=== PATIENT | female | born 2000 | race Caucasian/White ===

== ENCOUNTER 2020-05-17 11:50 | Emergency (ER) | payer OTHER, SELFPAY ==
[2020-05-17 11:57] VITALS: BP 122/69; PULSE 100; RESP 18; TEMP 36.7; O2SAT 96; BMI 22.3
--- NOTE | 2020-05-17 12:13 | ECG_ITS ---
Test Reason : SOB Blood Pressure : / mmHG Vent. Rate : 084 BPM Atrial Rate : 084 BPM P-R Int : 120 ms QRS Dur : 088 ms QT Int : 396 ms P-R-T Axes : 026 049 050 degrees QTc Int : 467 ms Normal sinus rhythm Normal ECG When compared with ECG of 16-FEB-2020 20:56, No significant change was found Referred By: Saumya Matson Electronically Signed By:Ceferino Ness
--- NOTE | 2020-05-17 12:13 | XR_ITS ---
EXAMINATION: XR CHEST CLINICAL INFORMATION: Chest pain COMPARISON: Chest radiographs 01/15/2020, 10/15/2019 TECHNIQUE: Frontal view of the chest was obtained. FINDINGS: There is no pneumothorax. No pleural reaction, airspace consolidation, or effusion. The heart is normal in size. The costophrenic sulci are clear. The hilar and mediastinal contours and visualized bony structures are unremarkable. No free air beneath the diaphragms. XR/XR chest 1V IMPRESSION: Unremarkable examination.
--- NOTE | 2020-05-17 12:36 | ED_ITS ---
HPI - General Adult General Chief complaint: General Medical Stated complaint: medical exposure Time Seen by Provider: 05/17/20 12:07 Source: patient and old records reviewed Mode of arrival: ambulatory Limitations: no limitations History of Present Illness HPI narrative: 20 y/o female with history of active IVDA, recently diagnosed RLE DVT who presents for evaluation for possible Staph infection. She has been sha ring needles with her boyfriend who was just diagnosed with Staph bacteremia and endocarditis. They were both hospitalized at [facility] in [place], [place] but left AMA. She did not fill her prescription for anticoaulation upon discharge. She denies leg pain. She reports fever of 101 two days ago and mild chest pain on inspiration. She was tested for COVID on admission and was negative. She repo rts nausea all night last night and wants to get evaluated for Staph infection. complaint: medical clearance Onset (ago): day(s) (2) Location: chest Radiation: non-radiation Severity: mild Quality: aching Pain Consistency: intermittent Relieving factors: none Exacerbating factors: other (deep breath ) Associated symptoms: loss of appetite and other (nausea) Related Data Previous Rx's Medication Instructions Recorded rivaroxaban [Xarelto DVT-PE Treat 1 ea PO PER PKG DIR #51 ea 05/17/20 30d Start] Allergies Allergy/AdvReac Type Severity Reaction Status Date / Time No Known Allergies Allergy Verified 05/17/20 12:00 [No Known Allergies*] Review of Systems Review of Systems: Constitutional: No Fever, No Chills ENT/Mouth: No sore throat, No Rhinorrhea, No Swallowing Difficulty Eyes: No Eye Pain, No Swelling, No Redness Cardiovascular: No Chest Pain, No SOB, No Orthopnea, No Edema Respiratory: No Cough, No Sputum, No Wheezing, No dyspnea Gastrointestinal: No Nausea, No Vomiting, No Diarrhea, No abdominal Pain, No Hematochezia, No Melena Genitourinary: No Dysuria, No Urinary Frequency, No Hematuria Musculoskeletal: No joint pain, No Myalgias Skin: No Skin Lesions, No rash Neuro: No Weakness, No Numbness, No Dizziness, No Headache Psych: No Anxiety/Panic, No Depression Heme/Lymph: No Bruising, No Lymphadenopathy Endocrine: No Polyuria, No Polydipsia [facility] Past Medical History Medical History (Updated 05/17/20 @ 14:29 by ABEL Lozano) Asthma DVT (deep venous thrombosis) Social History Social History Advance Directives: No Advance Directives Information Provided: No Physical Exam Vital Signs: Vital Signs: Last Vital Signs Temp 98.1 F 05/17/20 11:57 Pulse 100 05/17/20 11:57 Resp 18 05/17/20 11:57 BP 122/69 05/17/20 11:57 Pulse Ox 96 05/17/20 11:57 Body Mass Index 22.3 Appearance: Alert. Oriented X3. No acute distress. Anxious Eyes: Pupils equal, round and reactive to light. ENT: Pharynx normal. Neck: Normal inspection. Neck supple. CVS: Normal heart rate and rhythm. Pulses normal. Respiratory: No respiratory distress. Breath sounds normal. Abdomen: Soft and nontender. +BS x4 Skin: Skin warm and dry. Normal skin color. Normal skin turgor. Areas of IVDA noted on bilateral dorsal hands, no streaking or erythema. Extremities: Mild RLE edema of lower leg, 2+ pedal pulse, mild calf tenderness. Neuro: Oriented X 3. No motor deficit. No sensory deficit. Course Course Course Narrative: 20 y/o female with history of polysubstance abuse, active IVDA and recent dx RLE DVT presenting for evaluation of possible bacteremia after sharing needles with her significant other who is known to have MSSA bacteremia. Fever 2 days ago. Vitals normal on arrival. Will get labs and cultures as well as CXR and EKG for reports of mild chest discomfort. Reevaluation(s) Reevaluation #1: Records from [facility] were reviewed - she was admitted 05/13-05/15. Started on Xarelto for popliteal vein DVT in RLE. On admission there she was tachycardic to 150s and found to have a lactic acid of 4.0, resolved after IVF. She had a normal ECHO without evidence of vegetations and blood cultures were sterile to date. Reevaluation #2: CXR negative, troponin negative. Cultures drawn. No tachycardia or hypoxia to raise concern for PE. Will restart on Xarelto. Blood cultures drawn. Reassured by negative cultures at OSH. She is stable for discharge. Patient declining detox at this time, states she is planning on calling her facility of choice this week. Medical Decision Making Lab Data Result diagrams: 05/17/20 13:06 05/17/20 13:06 Labs: Lab Results 05/17/20 05/17/20 05/17/20 Range/Units 13:06 13:06 13:06 WBC 9.9 (4.8-10.8) X10*3/uL RBC 4.35 (4.20-5.50) X10*6/uL Hgb 12.9 (12.0-16.0) g/dl Hct 38.7 (37-47) % MCV 89.0 (80-98) fL MCH 29.7 (27.0-33.0) pg MCHC 33.3 (31.0-35.0) g/dl RDW 12.3 (11.0-16.0) % Plt Count 399 (160-400) X10*3/uL MPV 9.4 (9.4-12.3) fL Immature Gran % (Auto) 0.5 H (0.0-0.4) % Neut % (Auto) 50.4 (45-73) % Lymph % (Auto) 33.5 (20-40) % Freeborn % (Auto) 9.0 (2-11) % Eos % (Auto) 6.1 H (0-4) % Baso % (Auto) 0.5 (0-2) % Lymph # (Auto) 3.3 (1.2-4.9) X10*3/uL Free[place] # (Auto) 0.9 (0.1-1.2) X10*3/uL Eos # (Auto) 0.6 H (0.0-0.4) X10*3/uL Baso # (Auto) 0.1 (0.0-0.2) X10*3/uL Abs Immat Gran (auto) 0.05 H (0.00-0.03) X10*3/uL Absolute Neuts (auto) 5.0 (2.0-8.3) X10*3/uL Absolute Nucleated RBC 0.000 (0.0-0.012) X10*3/uL Nucleated RBC % (auto) 0.0 (0.0-0.2) /100WBC PT 12.9 (10.8-13.0) SEC INR 1.1 (0.9-1.1) APTT 33.8 (24.1-38.0) SEC Sodium 136 (135-145) mmol/L Potassium 3.5 (3.3-5.1) mmol/l Chloride 101 (96-108) mmol/L Carbon Dioxide 25 (22-29) mmol/L Anion Gap 14 (12-20) BUN 18 H (9-16) mg/dL Creatinine 0.80 (0.5-1.4) mg/dL Estim Creat Clear Calc 96.1 Estimated GFR > 60 Random Glucose 102 (60-115) mg/dL Lactic Acid (0.5-2.0) mmol/L Calcium 8.7 (8.4-10.2) mg/dL Magnesium 2.0 (1.6-2.6) mg/dL Total Bilirubin 0.3 (0.0-1.0) mg/dL Direct Bilirubin 0.2 (0.0-0.5) mg/dL AST 23 (5-31) U/L ALT 20 (0-31) U/L Alkaline Phosphatase 67 (39-117) U/L Troponin I High Sens (<3.5-17.0) ng/L Total Protein 7.7 (6.5-8.0) g/dL Albumin 4.0 (3.5-5.0) g/dL 05/17/20 05/17/20 Range/Units 13:06 13:06 WBC (4.8-10.8) X10*3/uL RBC (4.20-5.50) X10*6/uL Hgb (12.0-16.0) g/dl Hct (37-47) % MCV (80-98) fL MCH (27.0-33.0) pg MCHC (31.0-35.0) g/dl RDW (11.0-16.0) % Plt Count (160-400) X10*3/uL MPV (9.4-12.3) fL Immature Gran % (Auto) (0.0-0.4) % Neut % (Auto) (45-73) % Lymph % (Auto) (20-40) % Freeborn % (Auto) (2-11) % Eos % (Auto) (0-4) % Baso % (Auto) (0-2) % Lymph # (Auto) (1.2-4.9) X10*3/uL Freeborn # (Auto) (0.1-1.2) X10*3/uL Eos # (Auto) (0.0-0.4) X10*3/uL Baso # (Auto) (0.0-0.2) X10*3/uL Abs Immat Gran (auto) (0.00-0.03) X10*3/uL Absolute Neuts (auto) (2.0-8.3) X10*3/uL Absolute Nucleated RBC (0.0-0.012) X10*3/uL Nucleated RBC % (auto) (0.0-0.2) /100WBC PT (10.8-13.0) SEC INR (0.9-1.1) APTT (24.1-38.0) SEC Sodium (135-145) mmol/L Potassium (3.3-5.1) mmol/l Chloride (96-108) mmol/L Carbon Dioxide (22-29) mmol/L Anion Gap (12-20) BUN (9-16) mg/dL Creatinine (0.5-1.4) mg/dL Estim Creat Clear Calc Estimated GFR Random Glucose (60-115) mg/dL Lactic Acid 1.7 (0.5-2.0) mmol/L Calcium (8.4-10.2) mg/dL Magnesium (1.6-2.6) mg/dL Total Bilirubin (0.0-1.0) mg/dL Direct Bilirubin (0.0-0.5) mg/dL AST (5-31) U/L ALT (0-31) U/L Alkaline Phosphatase (39-117) U/L Troponin I High Sens < 3.5 (<3.5-17.0) ng/L Total Protein (6.5-8.0) g/dL Albumin (3.5-5.0) g/dL ECG Data Attestation: I personally reviewed and interpreted this ECG as follows: Interpretation: normal sinus rhythm, HR 84 bpm, normal MS interval, isolated T wave inversion in V1. Discharge Plan Discharge Clinical Impression: Active intravenous drug use, Acute deep vein thrombosis (DVT) of popliteal vein of right lower extremity Patient Disposition: Home, Self-Care Instructions: Deep Vein Thrombosis (ED), Polysubstance Abuse (ED) Additional Instructions: You lab workup today was unremarkable. Blood cultures were drawn, if they come back positive we will call you. Records from [facility] were reviewed - it is important that you take the prescribed blood thinner to treat your blood clot in your leg. Untreated and this can travel to your lung and be potentially deadly. A new prescription of your blood thinner was sent to your pharmacy. It is important that you seek detox for your drug use [place]. Do not use IV drugs, it can kill you. If you develop fever, chills, shortness of breath or worsening chest pain come back to the ER for further evaluation. Prescriptions: New Xarelto DVT-PE Treat 30d Start 15 mg (42)- 20 mg (9) tablets,dose pack 1 ea PO PER PKG DIR Qty: 51 RF: 0
[2020-05-17 13:16] LABS: Basophils Absolute Auto 0.1 X10*3/uL (0.0-0.2); Basophils Percent Auto 0.5 % (0-2); Eosinophils Absolute Auto 0.6 X10*3/uL (0.0-0.4); Eosinophils Percent Auto 6.1 % (0-4); Hematocrit 38.7 % (37-47); Hemoglobin 12.9 g/dl (12.0-16.0); Imm Gran Abs Auto 0.05 X10*3/uL (0.00-0.03); Imm Gran Pct Auto 0.5 % (0.0-0.4); Lymphocytes Absolute Auto 3.3 X10*3/uL (1.2-4.9); Lymphocytes Percent Auto 33.5 % (20-40); MANUAL DIFF FLAG NO; Mean Corpuscular HGB Conc 33.3 g/dl (31.0-35.0); Mean Corpuscular Hemoglobin 29.7 pg (27.0-33.0); Mean Platelet Volume 9.4 fL (9.4-12.3); Monocytes Absolute Auto 0.9 X10*3/uL (0.1-1.2); Neutrophils Percent Auto 50.4 % (45-73); Platelet Count 399 X10*3/uL (160-400); Red Blood Count 4.35 X10*6/uL (4.20-5.50); Red Cell Distribution Width 12.3 % (11.0-16.0); White Blood Count 9.9 X10*3/uL (4.8-10.8)
[2020-05-17 13:24] LABS: INTERNATIONAL NORM RATIO 1.1 (0.9-1.1); Prothrombin Time 12.9 SEC (10.8-13.0)
[2020-05-17 13:27] LABS: Partial Thromboplastin Time 33.8 SEC (24.1-38.0)
[2020-05-17 13:35] LABS: Lactic Acid 1.7 mmol/L (0.5-2.0)
[2020-05-17] MEDS: Rivaroxaban 15 MG TABLET PO (13:39)
[2020-05-17 13:41] LABS: Alanine Aminotransferase 20 U/L (0-31); Alkaline Phosphatase 67 U/L (39-117); Anion Gap 14 (12-20); Aspartate Amino Transferase 23 U/L (5-31); Bilirubin Direct 0.2 mg/dL (0.0-0.5); Bilirubin Total 0.3 mg/dL (0.0-1.0); Blood Urea Nitrogen 18 mg/dL (9-16); Calcium 8.7 mg/dL (8.4-10.2); Carbon Dioxide 25 mmol/L (22-29); Chloride 101 mmol/L (96-108); Creatinine Clr Calc Pharmacy 96.1; Estimated Glomerular Filt Rate > 60; Glucose Random 102 mg/dL (60-115); Potassium 3.5 mmol/l (3.3-5.1); Sodium 136 mmol/L (135-145); Total Protein 7.7 g/dL (6.5-8.0)
[2020-05-17 13:54] LABS: Troponin-I High Sensitivity < 3.5 ng/L (<3.5-17.0)
[2020-05-17 14:57] LABS: Glucose Urine UA NEG (NEG); Leukocyte Esterase Urine NEG (NEG); Nitrite Urine NEG (NEG); PH 5.5 (5.0-8.0); Specific Gravity - Urine >= 1.030 (1.005-1.025); Urine Blood TRACE (NEG); Urine Ketones NEG (NEG); Urine Protein NEG (NEG-TRACE)
[2020-05-17 14:59] LABS: Appearance Urine CLOUDY; Color Urine YELLOW
[2020-05-17 15:01] LABS: UPreg QC Valid YES; Urine Pregnancy NEGATIVE (NEGATIVE)
[2020-05-17 15:05] LABS: Bacteria Urine 2+ /LPF; Mucus Urine 1+ /LPF; Squamous Epithelial Cell Urine 4+ /LPF; UACC CULT YES
[2020-05-17 15:25] LABS: Amphetamine Screen Urine Not Detected (Not Detect); Barbiturates, Urine Not Detected (Not Detect); Benzodiazepines Screen Urine POSITIVE (Not Detect); Cannabinoid Screen Urine POSITIVE (Not Detect); Cocaine Screen Urine POSITIVE (Not Detect); Opiate Screen Urine POSITIVE (Not Detect); Phencyclidine Screen Urine Not Detected (Not Detect)
== END 2020-05-17 15:04 | disposition home or self-care (01) ==
PROVIDERS: Physician Assistant; Emergency Provider Emergency Medicine Emergency Medical Services
DX: I82.431 Acute embolism and thrombosis of right popliteal vein (principal); F11.10 Opioid abuse, uncomplicated; R11.0 Nausea; Z79.899 Other long term (current) drug therapy; Z20.828 Contact with and (suspected) exposure to other viral communicable diseases
CPT/HCPCS: 36415; 71045; 80048; 80076; 80307; 81001; 81025; 83605; 83735; 84484; 85025; 85610; 85730; 87040; 87077; 87086; 87147; 87186; 93005; 99283

== ENCOUNTER 2020-05-18 06:21 | Emergency (ER) | payer OTHER, SELFPAY ==
[2020-05-18 06:33] VITALS: PULSE 84; RESP 14; TEMP 36.7; O2SAT 96; BMI 20.1
--- NOTE | 2020-05-18 06:45 | PC.NURSE ---
PT STATES SHE USED [facility] 2 DAYS AGO
--- NOTE | 2020-05-18 06:59 | PC.NURSE ---
security called to lock pt belongings in . pt has admitted to using [facility] and is homeless with alot of belongings.
--- NOTE | 2020-05-18 07:36 | ED_ITS ---
HPI - General Adult General Chief complaint: General Medical Stated complaint: Leg swelling/sob Time Seen by Provider: 05/18/20 07:17 Source: patient Mode of arrival: ambulatory Limitations: no limitations History of Present Illness HPI narrative: 20-year-old female with a history of injection drug use, homelessness, seen in the emergency department yesterday for evaluation of possible bacteremia and for re-evaluation and treatment right lower extremity DVT. I did review yesterday his emergency department record. The patient was hospitalized from 05/13/2020-05/15/2020 at [facility] and left [place]. She w as diagnosed with a right popliteal DVT and was started on Xarelto. Since leaving [facility] AMA she has not been taking her medications. Her laboratory evaluation yesterday was normal, she did have blood cultures which are pending. She was started on Xarelto and given her 1st dose in the emergency department and discharged. The patient left the emergency department around 7:00 p.m. but stated in the emergency department waiting area overnight. This morning she is complaining of increased swelling in her right lower extremity and she signed back in. She states that her right calf is more swollen than it was yesterday, she has [id number] cramping pain which is constant in her right lower extremity. She denied chest pain or shortness of breath to me. She denied fever or chills. Related Data Previous Rx's Medication Instructions Recorded rivaroxaban [Xarelto DVT-PE Treat 1 ea PO PER PKG DIR #51 ea 05/17/20 30d Start] rivaroxaban [Xarelto DVT-PE Treat 1 ea PO BID #51 ea 05/18/20 30d Start] Allergies Allergy/AdvReac Type Severity Reaction Status Date / Time No Known Allergies Allergy Verified 05/17/20 12:00 [No Known Allergies*] Review of Systems Review of Systems: Yes all other systems are reviewed and are negative Constitutional: Constitutional: Reports as per HPI Eyes: Eyes: Reports as per HPI ENT: Reports as per HPI Cardiovascular: Cardiovascular: Reports as per HPI Respiratory: Respiratory: Reports as per HPI Gastrointestinal: Gastrointestinal: Reports as per HPI Genitourinary: Genitourinary: Reports as per HPI Musculoskeletal: Musculoskeletal: Reports as per HPI Integumentary/Breasts: Skin/Breast: Reports as per HPI Neurologic: Reports as per HPI and Reports Abnormal speech present Psychiatric: Psychiatric: Reports as per HPI Allergic/Immunologic: Allergic/Immunologic: Reports as per HPI [facility] Past Medical History Attestation statement: The following information was validated with the patient. [facility] Narrative: The patient is homeless, she states that she has from the [facility], she does smoke cigarettes, denies alcohol use, she does use injection heroin Medical History (Updated 05/18/20 @ 14:28 by Mario Rubio MD) Asthma DVT (deep venous thrombosis) Social History Social History Alcohol intake: current Smoking Status: Unknown if ever smoked Use of substances other than those prescribed or required for medical reasons: Yes Substance Use Type: Heroin Advance Directives: No Advance Directives Information Provided: No Physical Exam Vital Signs: Vital Signs: Last Vital Signs Temp 98.1 F 05/18/20 06:33 Pulse 84 05/18/20 06:33 Resp 14 05/18/20 06:33 BP 115/73 05/18/20 11:15 Pulse Ox 96 05/18/20 06:33 Body Mass Index 20.1 Const: General: cooperative Nutritional Appearance: average body habitus Orientation/consciousness: oriented to person and oriented to place Limitations: no limitations HENMT: Head: Yes normal to inspection, Yes normocephalic and Yes atraumatic Ears: external ears normal General nose exam: Normal external nose present Face and sinus: Yes normal facial exam Mouth: Normal oral and palatal mucosa present Throat: Yes posterior oropharynx normal Eyes: General: appearance normal, both eyes and all related structures Alignment and Position: alignment normal Periorbital: periorbital findings normal Eyelids: Yes eyelids normal Conjunctivae: conjunctivae normal Sclerae: sclerae normal Pupils: Equal, round and reactive pupils present Direct Ophthalmoscopy: normal light reflex Neck: Neck: Yes normal visual inspection and Yes supple Thyroid: Thyroid normal Chest: Chest palpation & inspection: normal inspection of the chest and normal palpation of entire chest wall Resp: Effort & Inspection: normal respiratory effort and able to speak in complete sentences Auscultation: clear to auscultation bilaterally, no crackles, no rales and no rhonchi Cardio: Rate: regular rate Rhythm: regular rhythm Heart sounds: S1 normal heart sound present, S2 normal heart sound present and no murmurs GI: Inspection: Yes normal to inspection Palpation (GI): Soft to palpation, nontender and no guarding Auscultation: normal bowel sounds : General: Yes no CVA tenderness Back/Spine/Pelvis: Back: no CVA tenderness Cervical Spine: normal cervical lordosis Thoracic/Lumbar Spine: thoracic and lumbar spine normal to inspection Skin: General skin exam: no rashes or lesions noted Lesions: no lesions Rashes: no rashes Trauma: no lacerations or abrasions Neuro: General: oriented to person and oriented to place Cranial nerves: Yes CN's II-XII intact bilaterally and Yes Equal, round and reactive pupils present Cognition (Neuro): normal cognition Speech: Abnormal speech present Motor exam (neuro): 5/5 motor strength present throughout Extrem: Right lower extremity: lower leg (The patient's right calf is slightly larger than the left, thighs symmetric) Psych: Appearance: grossly normal and well kempt Mental Status: mental status grossly normal Speech and movement: Normal speech and movement present Affect: normal affect Attitude: cooperative Thought process: Normal thought process present Thought content: Normal thought content present Insight: Good insight present (Psych) Judgement: Good judgement present (Psych) Course Course Course Narrative: 20-year-old female with history of injection drug use, homelessness with acute right lower extremity popliteal DVT diagnosed 05/13/2020 who has been noncompliant with her Xarelto. The patient was seen yesterday and had a negative laboratory workup with pending blood cultures, she was given a dose of Xarelto yesterday and given a prescription however she spent the night in our waiting area and signed and again this morning. At this time I do not think that the patient needs to have repeat laboratory evaluation but she does need to take Xarelto. She was given a dose of Xarelto 15 mg orally. The patient will be kept in the emergency department until Case Management can evaluate her to try to help her get her medications and to help her get to a skilled nursing so that she can care for herself. 1427: The patient was evaluated by case management and the patient will be sent to a skilled nursing in [place]. I will give the patient her 2nd dose of Xarelto and give her a written prescription to get the medication filled while she is at the [facility]. Patient was given printed instructions on DVT and is reviewed with her prior to her discharge. 1440: I did review the patient's blood cultures from yesterday's visit, patient has 2 sets blood cultures with 1 bottle out of the 4 growing Gram-positive cocci. At this time my impression is that this is probably a contaminant we will need to follow his blood cultures of in the next 24 hours. Discharge Plan Discharge Clinical Impression: Right leg DVT Qualifiers: Affected thrombotic vein of extremity: popliteal Chronicity: acute Qualified Code(s): I82.431 - Acute embolism and thrombosis of right popliteal vein Patient Disposition: Home, Self-Care Instructions: Deep Vein Thrombosis (ED) Additional Instructions: You have a blood clot in your right leg (deep venous thrombosis-DVT) Take Xarelto 15 mg twice a day for 21 days After 21 days the dose changes to Xarelto 20 mg once a day. Get this prescription filled tomorrow and start taking the prescription tomorrow morning. You need to be on Xarelto for 3-6 months. You will need to get a doctor to prescribe your next months dose of Xarelto for you. If you stops this medication the blood clot in your leg will get bigger and then the clot can break off and travel to your lungs. This is called a pulmonary embolus and he can cause serious damage to her lungs and can cause to . Follow-up with a provider in 1 week Please return to the emergency department if her symptoms get worse or if you develop any new symptoms that are concerning to you. Prescriptions: New Xarelto DVT-PE Treat 30d Start 15 mg (42)- 20 mg (9) tablets,dose pack 1 ea PO BID Qty: 51 RF: 0 No [facility] Xarelto DVT-PE Treat 30d Start 15 mg (42)- 20 mg (9) tablets,dose pack 1 ea PO PER PKG DIR Qty: 51 RF: 0
[2020-05-18] MEDS: Rivaroxaban 15 MG TABLET PO ×2 (07:50→15:18)
--- NOTE | 2020-05-18 09:47 | MHC.CM.ED ---
pt has requested to go to [facility] she has been accepted there and is leaving the [facility] e.d[facility] via [facility] at 11 am. the rn and md and pt are aware of this dc plan. cm to cont. to follow.
--- NOTE | 2020-05-18 10:09 | MHC.RECOVSUP ---
Recovery Support note: Patient is a 20 year old Kiswahili speaking female who presented to [facility] with her boyfriend after leaving [facility] from [facility]. Patient was admitted for a blood clot and report she has not been taking the medications they prescribed. Patient is currently homeless and reports she is interested in going to detox or a care home however she is only willing to go to detox if they will allow her to keep her phone. Patient is agreeable to a referral being placed at [facility] in [place]. Patient information has been faxed to [phone]. [facility] is unable to confirm whether a bed will be available but they are willing to review the referral and will reach out to patient directly if a bed becomes available. This designer writer will follow up with facility prior to patient discharge.
[2020-05-18 11:15] VITALS: BP 115/73
--- NOTE | 2020-05-18 13:08 | MHC.RECOVSUP ---
[facility] reports that they will reach out to patient directly within 24 hours to do an intake and to discuss possible admission time. Patient aware and awaiting call. Patient provided with [facility] information to call directly if she does not hear from them by tomorrow. If patient discharges to a skilled nursing, [facility] will be able to pick patient up and transport her to their facility.
--- NOTE | 2020-05-18 14:22 | MHC.CM.ED ---
pt [facility] [place], [place]. the facility was called and an intake was done c patient, they are holding a bed for her for today and are expecting her to arrive at 4 pm, just in time for their dinner. a cab voucher was used for pt's transportation to residential. additionally, a ref. has been made to [facility]; they do not have a bed right now but will call patient as soon as they do and pick her up at the residential. lastly, pt was informed that she has [facility] which will cover her rx for xarelto; she was also instructed that if she cannot pay the $6 copay then the pharmacist should still dispense the meds despite this. patient was in full understanding. the patient was also given a voucher for a 30 day free suppy of xarelto at the pharmacy. this dc plan has been shared c [facility], and in the e.d. cm to cont. to follow.
[2020-05-18 15:11] VITALS: BP 114/78; PULSE 97; RESP 20; TEMP 36.8; O2SAT 94
== END 2020-05-18 15:29 | disposition home or self-care (01) ==
PROVIDERS: Emergency Provider Emergency Medicine Emergency Medical Services
DX: I82.431 Acute embolism and thrombosis of right popliteal vein (principal); Z91.14 Patient's other noncompliance with medication regimen; Z59.0 Homelessness
CPT/HCPCS: 99284

== ENCOUNTER 2020-05-23 19:30 | Emergency (ER) | payer OTHER, SELFPAY ==
--- NOTE | 2020-05-23 20:02 | ED_ITS ---
HPI - Recheck/Abnormal Lab/Rx General Chief Complaint: Recheck/Abnormal Lab/Rx Stated Complaint: ABNORMAL LABS Time Seen by Provider: 05/23/20 19:45 Source: patient Mode of arrival: ambulatory Limitations: no limitations History of Present Illness HPI narrative: 20-year-old female with past medical history of IV drug use, DVT, presents with abnormal blood cultures. Cultures were taken on 05/17/2020 and both have returned with Gram-positive cocci. Patient states that she feels tired, that her leg is less swollen and is able to walk, has been taking her Xarelto as directed. She does not report any fevers or chills, chest pain or pressure, palpitations, abdominal pain, abdominal distention, dysuria, hematuri a, or loss of balance. MD complaint: abnormal lab Initial visit (ago): week(s) (05/17/2020) Initial visit for: other Returns today for: called because of abnormal lab/test Description of abnormal result: Positive blood culture Symptoms since prior visit: improved Context: called for abnormal lab result Associated symptoms: malaise Related Data Previous Rx's Medication Instructions Recorded rivaroxaban [Xarelto DVT-PE Treat 1 ea PO PER PKG DIR #51 ea 05/17/20 30d Start] rivaroxaban [Xarelto DVT-PE Treat 1 ea PO BID #51 ea 05/18/20 30d Start] amoxicillin-pot clavulanate 1 tab PO Q12H 10 Days #20 tab 05/23/20 [Augmentin] doxycycline monohydrate 100 mg PO BID 10 Days #20 cap 05/23/20 Allergies Allergy/AdvReac Type Severity Reaction Status Date / Time No Known Allergies Allergy Verified 05/17/20 12:00 [No Known Allergies*] Review of Systems Review of Systems: Constitutional: No Fever, No Chills ENT/Mouth: No Ear Pain, No Hoarseness, No sore throat Eyes: No Eye Pain, No Swelling, No Redness, No Foreign Body Cardiovascular: No Chest Pain, No SOB Respiratory: No Cough, No Dyspnea Gastrointestinal: No Nausea, No Vomiting, No Diarrhea, No abdominal Pain Genitourinary: No Dysuria, No Hematuria Musculoskeletal: No joint pain, No Myalgias, No Joint Swelling Skin: No Skin lacerations, No rash Neuro: No Weakness, No Numbness, No Paresthesias, No Loss of Consciousness, No Dizziness, No Headache Psych: No Anxiety/Panic, No Depression Heme/Lymph: no easy bruising, no Lymphadenopathy Endocrine: No Polyuria, No Polydipsia Yes all other systems are reviewed and are negative [facility] Past Medical History Attestation statement: The following information was validated with the patient. Medical History Asthma DVT (deep venous thrombosis) Social History Social History Alcohol intake: current Alcohol intake frequency: a few times a week Smoking Status: Current every day smoker Smoked in Last 30 Days: Yes Use of substances other than those prescribed or required for medical reasons: Yes Substance Use Type: Crack/Cocaine, Marijuana and Other Substance Use Type Other:: BENZO Substance Use Frequency: Chronic Longstanding Last Used Substance: Just Prior to Admission Advance Directives: No Advance Directives Information Provided: Yes Physical Exam Vital Signs: Vital Signs: Last Vital Signs Temp 98.8 F 05/23/20 21:57 Pulse 100 05/23/20 23:26 Resp 20 05/23/20 21:57 BP 105/51 L 05/23/20 21:57 Pulse Ox 94 05/23/20 21:57 Body Mass Index 20.1 Appearance: Alert. Oriented X3. No acute distress. Eyes: Pupils equal, round and reactive to light. ENT: Pharynx normal. Neck: Normal inspection. Neck supple. CVS: Normal heart rate and rhythm. Pulses normal. Respiratory: No respiratory distress. Breath sounds normal. Abdomen: Soft and nontender. Skin: Skin warm and dry. Normal skin color. Normal skin turgor. Extremities: No lower extremity edema. Neuro: No motor deficit. No sensory deficit. Course Course Course Narrative: 20-year-old female with past medical history of IV drug use, DVT, presents with positive blood cultures. She was called by prior june P and asked to return for evaluation. Plan of care is for CBC, Chem 7, lactic and cultures. Patient does not want to stay in the hospital, we will treat with p.o. doxycycline and Augmentin at this time. Evaluation of her right lower extremity, no longer swollen, brisk capillary refill, pedal pulses bilaterally intact and equal. Patient was advised to continue with her Xarelto. Reevaluation(s) Reevaluation #1: Labs not drawn, RN updated. Time: 21:12 Reevaluation #2: Labs are unremarkable, when patient was updated on this during discharge instructions, she stated that she has upper respiratory symptoms, cough and wheeze. She did not mention these symptoms earlier during H&P. Plan of care is for x-ray at this time. X-rays are negative for acute findings. Plan of care is to discharge home. Time: 22:47 MDM - Recheck/Abnormal Lab/Rx MDM Narrative Medical decision making narrative: Bacteremia, abnormal lab values, URI, viral syndrome Medical Records Attestation: I reviewed the patient's medical records. Lab Data Attestation: I reviewed the patient's lab results. Result diagrams: 05/23/20 21:33 05/23/20 21:32 Labs: Lab Results 05/23/20 05/23/20 05/23/20 Range/Units 21:32 21:32 21:33 WBC 9.3 (4.8-10.8) X10*3/uL RBC 3.82 L (4.20-5.50) X10*6/uL Hgb 11.4 L (12.0-16.0) g/dl Hct 36.1 L (37-47) % MCV 94.5 D (80-98) fL MCH 29.8 (27.0-33.0) pg MCHC 31.6 (31.0-35.0) g/dl RDW 12.8 (11.0-16.0) % Plt Count 410 H (160-400) X10*3/uL MPV 9.3 L (9.4-12.3) fL Immature Gran % (Auto) 0.3 (0.0-0.4) % Neut % (Auto) 44.3 L (45-73) % Lymph % (Auto) 40.4 H (20-40) % [place] % (Auto) 6.7 (2-11) % Eos % (Auto) 7.8 H (0-4) % Baso % (Auto) 0.5 (0-2) % Lymph # (Auto) 3.8 (1.2-4.9) X10*3/uL [place] # (Auto) 0.6 (0.1-1.2) X10*3/uL Eos # (Auto) 0.7 H (0.0-0.4) X10*3/uL Baso # (Auto) 0.1 (0.0-0.2) X10*3/uL Abs Immat Gran (auto) 0.03 (0.00-0.03) X10*3/uL Absolute Neuts (auto) 4.1 (2.0-8.3) X10*3/uL Absolute Nucleated RBC 0.000 (0.0-0.012) X10*3/uL Nucleated RBC % (auto) 0.0 (0.0-0.2) /100WBC Sodium 140 (135-145) mmol/L Potassium 3.7 (3.3-5.1) mmol/l Chloride 105 (96-108) mmol/L Carbon Dioxide 26 (22-29) mmol/L Anion Gap 13 (12-20) BUN 15 (9-16) mg/dL Creatinine 0.72 (0.5-1.4) mg/dL Estim Creat Clear Calc 110.6 Estimated GFR > 60 Random Glucose 99 (60-115) mg/dL Lactic Acid 1.6 (0.5-2.0) mmol/L Calcium 8.0 L D (8.4-10.2) mg/dL Imaging Data Chest x-ray: Attestation: I personally reviewed and interpreted this imaging study as follows: Radiologist's impression: EXAMINATION: XR CHEST CLINICAL INFORMATION: Cough and wheezing COMPARISON: 05/17/2020 TECHNIQUE: 2 views of the chest were obtained. FINDINGS: Once again, no significant abnormality is noted involving the heart, lungs, mediastinum, bony thorax or soft tissues. XR/XR chest 2V IMPRESSION: Normal chest radiograph Discharge Plan Discharge Clinical Impression: Abnormal laboratory test result Upper respiratory infection Qualifiers: URI type: unspecified viral URI Qualified Code(s): J06.9 - Acute upper respiratory infection, unspecified Patient Disposition: Home, Self-Care Instructions: Upper Respiratory Infection (ED), Viral Syndrome (ED) Additional Instructions: You were evaluated for abnormal lab values. We repeated your blood cultures. Please continue to take your Xarelto for your blood clot. Your chest x-ray was negative for acute findings. We prescribed doxycycline and Augmentin based on your positive blood culture, high risk lifestyle, and upper respiratory symptoms. If symptoms get worse please return to the emergency department immediately. Thank you for choosing this emergency department for evaluation. Please follow-up with primary care physician as needed. Return to the emergency department for any new, concerning, or worsening symptoms. Prescriptions: New doxycycline monohydrate 100 mg capsule 100 mg PO BID 10 Days Qty: 20 RF: 0 amoxicillin-pot clavulanate [Augmentin] 875-125 mg tablet 1 tab PO Q12H 10 Days Qty: 20 RF: 0 No Action Xarelto DVT-PE Treat 30d Start 15 mg (42)- 20 mg (9) tablets,dose pack 1 ea PO PER PKG DIR Qty: 51 RF: 0 Xarelto DVT-PE Treat 30d Start 15 mg (42)- 20 mg (9) tablets,dose pack 1 ea PO BID Qty: 51 RF: 0 Interventions: ED Discharge Assessment Last Done: 05/24/20 00:22 Discharge Date/Time: 05/24/20 00:23
[2020-05-23 21:40] LABS: MANUAL DIFF FLAG NO
[2020-05-23 21:57] VITALS: BP 105/51; PULSE 90; RESP 20; TEMP 37.1; O2SAT 94; BMI 20.1
[2020-05-23 22:02] LABS: Basophils Absolute Auto 0.1 X10*3/uL (0.0-0.2); Basophils Percent Auto 0.5 % (0-2); Eosinophils Absolute Auto 0.7 X10*3/uL (0.0-0.4); Eosinophils Percent Auto 7.8 % (0-4); Hematocrit 36.1 % (37-47); Hemoglobin 11.4 g/dl (12.0-16.0); Imm Gran Abs Auto 0.03 X10*3/uL (0.00-0.03); Imm Gran Pct Auto 0.3 % (0.0-0.4); Lymphocytes Absolute Auto 3.8 X10*3/uL (1.2-4.9); Lymphocytes Percent Auto 40.4 % (20-40); Mean Corpuscular HGB Conc 31.6 g/dl (31.0-35.0); Mean Corpuscular Hemoglobin 29.8 pg (27.0-33.0); Mean Corpuscular Volume 94.5 fL (80-98); Mean Platelet Volume 9.3 fL (9.4-12.3); Monocytes Absolute Auto 0.6 X10*3/uL (0.1-1.2); Monocytes Percent Auto 6.7 % (2-11); Neutrophils Absolute Auto 4.1 X10*3/uL (2.0-8.3); Neutrophils Percent Auto 44.3 % (45-73); Platelet Count 410 X10*3/uL (160-400); Red Blood Count 3.82 X10*6/uL (4.20-5.50); Red Cell Distribution Width 12.8 % (11.0-16.0); White Blood Count 9.3 X10*3/uL (4.8-10.8)
[2020-05-23 22:02] LABS: Lactic Acid 1.6 mmol/L (0.5-2.0)
[2020-05-23 22:05] LABS: Anion Gap 13 (12-20); Blood Urea Nitrogen 15 mg/dL (9-16); Carbon Dioxide 26 mmol/L (22-29); Chloride 105 mmol/L (96-108); Creatinine Clr Calc Pharmacy 110.6; Estimated Glomerular Filt Rate > 60; Glucose Random 99 mg/dL (60-115); Potassium 3.7 mmol/l (3.3-5.1); Sodium 140 mmol/L (135-145)
[2020-05-23] MEDS: Amoxicillin/Potassium Clav 875 MG TABLET PO (22:05)
--- NOTE | 2020-05-23 22:37 | XR_ITS ---
EXAMINATION: XR CHEST CLINICAL INFORMATION: Cough and wheezing COMPARISON: 05/17/2020 TECHNIQUE: 2 views of the chest were obtained. FINDINGS: Once again, no significant abnormality is noted involving the heart, lungs, mediastinum, bony thorax or soft tissues. XR/XR chest 2V IMPRESSION: Normal chest radiograph
--- NOTE | 2020-05-23 22:58 | PC.NURSE ---
PATIENT AMBULATES WITH STEADY GAIT OUT OF BED TO BATHROOM AND BACK WITHOUT ISSUE. CURTAIN REMAINS OPEN. PT NON-COMBATIVE, CALM, AND COOPERATIVE AT THIS TIME. WILL CONTINUE TO MONITOR.
[2020-05-23] MEDS: Albuterol Sulfate 90 MCG 8 GM INHALER 2 PUFF INHALE (23:25)
[2020-05-23 23:26] VITALS: PULSE 100; O2SAT 95
== END 2020-05-24 00:23 | disposition home or self-care (01) ==
PROVIDERS: Nurse Practitioner Family; Emergency Provider Internal Medicine
DX: J06.9 Acute upper respiratory infection, unspecified (principal); R79.9 Abnormal finding of blood chemistry, unspecified; Z86.718 Personal history of other venous thrombosis and embolism; Z79.01 Long term (current) use of anticoagulants; F17.200 Nicotine dependence, unspecified, uncomplicated
CPT/HCPCS: 36415; 71046; 80048; 83605; 85025; 87040; 94640; 99284

== ENCOUNTER 2020-05-24 12:12 | Emergency (ER) | payer OTHER, SELFPAY ==
[2020-05-24 13:31] VITALS: BP 95/63; PULSE 95; RESP 16; TEMP 36.3; O2SAT 97; BMI 20.1
--- NOTE | 2020-05-24 14:09 | ED.GENADULT ---
HPI - General Adult General Chief complaint: General Medical Stated complaint: abnormal labs Time Seen by Provider: 05/24/20 14:09 History of Present Illness HPI narrative: Patient complains of wheezing for several days and shortness of breath typical of many prior asthma episodes and was called back because of a [place] of blood culture that was done several days ago The patient has no fever no chills no complaint of any infection no chest pain no shortness of breath no cough no runny nose no nausea no vomiting she is eating and drinking normally She was recently here and found have a blood clot and is taking Xarelto, she is an IV drug user who says that she stopped using several weeks ago after a stint in rehab Blood cultures were done on 05/13 as patient complained she had had a fever several days previous, and that her boyfriend who is also an IV drug addict with whom she shares needles had endocarditis and was being treated MD complaint: Positive blood culture, wheezing Related Data Previous Rx's Medication Instructions Recorded rivaroxaban [Xarelto DVT-PE Treat 1 ea PO PER PKG DIR #51 ea 05/17/20 30d Start] rivaroxaban [Xarelto DVT-PE Treat 1 ea PO BID #51 ea 05/18/20 30d Start] amoxicillin-pot clavulanate 1 tab PO Q12H 10 Days #20 tab 05/23/20 [Augmentin] doxycycline monohydrate 100 mg PO BID 10 Days #20 cap 05/23/20 levofloxacin 500 mg PO Q24H #14 tab 05/24/20 prednisone 60 mg PO DAILY 5 Days #15 tab 05/24/20 Allergies Allergy/AdvReac Type Severity Reaction Status Date / Time No Known Allergies Allergy Verified 05/17/20 12:00 [No Known Allergies*] Review of Systems Review of Systems: Positive for wheezing Negative no fever no chills no weakness no dizziness no confusion no chest pain no cough no shortness of breath no palpitations no nausea no vomiting no rash no numbness no weakness, no urinary symptoms Yes all other systems are reviewed and are negative [facility] Past Medical History Attestation statement: The following information was validated with the patient. [facility] Narrative: Positive for IV drug abuse, medical history is positive for recent diagnosis of DVT taking Xarelto and long history of asthma Medical History Asthma DVT (deep venous thrombosis) Social History Social History Alcohol intake: current Alcohol intake frequency: a few times a week Smoking Status: Current every day smoker Substance Use Type: Crack/Cocaine, Marijuana and Other Advance Directives: No Advance Directives Information Provided: No Physical Exam Vital Signs: Vital Signs: Last Vital Signs Temp 98.0 F 05/24/20 17:17 Pulse 76 05/24/20 17:56 Resp 16 05/24/20 17:17 BP 104/69 05/24/20 17:17 Pulse Ox 95 05/24/20 17:17 Body Mass Index 20.1 General appearance is comfortable relaxed tearful corroborative A&O x3 speaking full sentences ambulates easily The head is normocephalic atraumatic, no rashes, pharynx is clear well-hydrated Neck is supple The chest had audible wheezes and prolonged expiration bilaterally, but full air entry, no respiratory distress The heart was rate and rhythm regular with no murmurs auscultated The abdomen soft nontender the extremities no edema no calf tenderness Skin no rashes Neuro no focal deficits Course Course Course Narrative: Patient with a known blood clot who came in complaining of wheezing and shortness of breath which she described as same as many prior asthma exacerbations was treated with albuterol with very good relief of symptoms and decrease in wheezing Blood culture was positive for Pseudomonas fluorescein and Enterococcus faecalis with susceptibility to Levaquin for the Pseudomonas fluorescein and susceptibility to ampicillin for the E faecalis This was discussed with infectious disease doctor marcello who agreed that this patient with no fever or chills and no signs of infection at this time could be treated as an outpatient She had already been started on Augmentin and doxycycline, Augmentin should cover the E faecalis and we started Levaquin by mouth here and patient was discharged Discharge Plan Discharge Clinical Impression: Positive blood culture, Asthma Patient Disposition: Home, Self-Care Additional Instructions: We are treating for asthma with albuterol inhaler and prednisone You had positive blood cultures which means there is a bacteria in her blood We spoke to the Infectious Disease specialist who recommended adding Levaquin to your antibiotics for 14 days so we are adding that Return to the ER any time for fever chills, difficulty breathing, any worse condition, any concerns Prescriptions: New levofloxacin 500 mg tablet 500 mg PO Q24H Qty: 14 RF: 0 prednisone 20 mg tablet 60 mg PO DAILY 5 Days Qty: 15 RF: 0 No Action Xarelto DVT-PE Treat 30d Start 15 mg (42)- 20 mg (9) tablets,dose pack 1 ea PO PER PKG DIR Qty: 51 RF: 0 Xarelto DVT-PE Treat 30d Start 15 mg (42)- 20 mg (9) tablets,dose pack 1 ea PO BID Qty: 51 RF: 0 doxycycline monohydrate 100 mg capsule 100 mg PO BID 10 Days Qty: 20 RF: 0 amoxicillin-pot clavulanate [Augmentin] 875-125 mg tablet 1 tab PO Q12H 10 Days Qty: 20 RF: 0 Interventions: ED Discharge Assessment Last Done: 05/24/20 18:42 Discharge Date/Time: 05/24/20 18:45
--- NOTE | 2020-05-24 15:43 | PC.NURSE ---
AMBULATORY WITH STEADY GAIT TO RM 19 BY [employer]IDER ASSEMBLER, CHERYLE, DOLORES CHANG, ABEL OSBORN IN TO ASSESS, CALL TO DR MORRIS, INFECTIOUS DISEASE MD, AWAITING RETURN CALL
[2020-05-24 16:00] VITALS: BP 114/65; PULSE 97; RESP 16; TEMP 36.8; O2SAT 90
--- NOTE | 2020-05-24 16:43 | PC.NURSE ---
O2 SAT 88-93% RA, O2 AT 2L APPLIED O2 SAT 93-94%, 02 3L SAT 95-96%, HOB ELEVATED, PA IRENA UPDATED,
--- NOTE | 2020-05-24 17:06 | PC.NURSE ---
PT HAD BEEN OOB TO BR FOR APPROX 20 MINS PRIOR TO RETURNING TO ROOM 19, AFFECT SUBDUED, PT YAWNING, 02 REMOVED SAT 97% RA
[2020-05-24 17:17] VITALS: BP 104/69; PULSE 76; RESP 16; TEMP 36.7; O2SAT 95
[2020-05-24] MEDS: Acetaminophen 325 MG TABLET 650 MG PO (17:31)
[2020-05-24] MEDS: predniSONE 20 MG TABLET 60 MG PO (17:32)
[2020-05-24] MEDS: levoFLOXacin 500 MG TABLET PO (17:32)
[2020-05-24] MEDS: Albuterol Sulfate 90 MCG 8 GM INHALER 4 PUFF INHALE (17:54)
[2020-05-24 17:56] VITALS: PULSE 76; O2SAT 93
== END 2020-05-24 18:45 | disposition home or self-care (01) ==
PROVIDERS: Emergency Provider Emergency Medicine
DX: R78.81 Bacteremia (principal); J45.909 Unspecified asthma, uncomplicated; Z86.718 Personal history of other venous thrombosis and embolism; Z79.01 Long term (current) use of anticoagulants; F19.10 Other psychoactive substance abuse, uncomplicated; F17.200 Nicotine dependence, unspecified, uncomplicated
CPT/HCPCS: 94640; 99284

== ENCOUNTER 2020-06-23 22:18 | Inpatient (IN) | payer OTHER, SELFPAY ==
--- NOTE | 2020-06-23 22:54 | ED_ITS ---
HPI - Asthma General Chief Complaint: Asthma Stated Complaint: diff breathing Time Seen by Provider: 06/23/20 22:37 Source: patient and old records reviewed Mode of arrival: ambulatory Limitations: no limitations History of Present Illness MD complaint: asthma attack and shortness of breath Onset (ago): day(s) (2) Severity: moderate and similar to prior Context: none known Associated symptoms: dry cough Asthma History: childhood onset Treatments Prior to Arrival: inhaled bronchodilator and other (completed prednisone 1 week ago) Related Data Previous Rx's Medication Instructions Recorded rivaroxaban [Xarelto DVT-PE Treat 1 ea PO PER PKG DIR #51 ea 05/17/20 30d Start] rivaroxaban [Xarelto DVT-PE Treat 1 ea PO BID #51 ea 05/18/20 30d Start] amoxicillin-pot clavulanate 1 tab PO Q12H 10 Days #20 tab 05/23/20 [Augmentin] doxycycline monohydrate 100 mg PO BID 10 Days #20 cap 05/23/20 levofloxacin 500 mg PO Q24H #14 tab 05/24/20 prednisone 60 mg PO DAILY 5 Days #15 tab 05/24/20 Allergies Allergy/AdvReac Type Severity Reaction Status Date / Time No Known Allergies Allergy Verified 05/17/20 12:00 [No Known Allergies*] Review of Systems Review of Systems: Constitutional : No Fever, No Chills ENT/Mouth : No Hoarseness, No sore throat, No Rhinorrhea Eyes: No Redness, No Discharge, No Vision Changes Cardiovascular : No Chest Pain, positive SOB, positive Dyspnea on Exertion, No Edema Respiratory : positive Cough, No Sputum, positive Wheezing, Gastrointestinal : No Nausea, No Vomiting, No Diarrhea, No abdominal Pain Genitourinary : No Dysuria, No Hematuria Musculoskeletal : No joint pain, No Myalgias Skin : No rash Neuro : No Weakness, No Numbness, No Headache Psych : No anxiety, depression Heme/Lymph: No Bruising, No Bleeding Endocrine : No Polyuria, No Polydipsia All other systems reviewed and are negative PMFSH Past Medical History Attestation statement: The following information was validated with the patient. Medical History Asthma DVT (deep venous thrombosis) Social History Social History (Updated 06/23/20 @ 23:05 by Kaylee Ga DO) Alcohol intake: current Alcohol intake frequency: a few times a week Smoking Status: Current every day smoker Substance Use Type: Marijuana Advance Directives: No Advance Directives Information Provided: No Physical Exam Vital Signs: Vital Signs: Last Vital Signs Temp 98.4 F 06/23/20 23:03 Pulse 144 H 06/24/20 03:46 Resp 18 06/24/20 00:00 BP 112/96 H 06/24/20 03:46 Pulse Ox 92 06/24/20 03:46 Body Mass Index 20.1 Appearance: Alert. Oriented X3. Mild acute distress. Eyes: Pupils equal, round and reactive to light. ENT: Pharynx normal. Neck: Normal inspection. Neck supple. CVS: tachycardic heart rate and rhythm. Pulses normal. Respiratory: Mild respiratory distress + tachypnea and retractions. Breath sounds diffuse insp and exp wheezes Abdomen: Soft and nontender. Skin: Skin warm and dry. Normal skin color. Normal skin turgor. Extremities: No lower extremity edema. No calf ttp Neuro: Oriented X 3. No motor deficit. No sensory deficit. Course Course Course Narrative: tachycardia could be due to hypoxia - no chest pain to suggest PE, she may require xopenex if tachycardia worsens on albuterol - the patient took several nebulizers prior to arrival will switch to xopenex at this time HR went up to 160 at one point, patient appears improved 94% after xopenex on 5L NC, hx of same in past HR down to 120s now MDM - Asthma MDM Narrative Medical decision making narrative: 20 yo female with asthma and hx of DVT - c/o asthma exacerbation x 2 days she is 89% on RA, recurrent admissions for asthma in past but no prior intubations, at this time will need 10mg neb treatment, IV steroids, IV magnesium, labs and CXR, COVID swab - dispo per results and improvements. Lab Data Result diagrams: 06/23/20 23:25 06/23/20 23:25 Labs: Lab Results 06/23/20 06/23/20 06/23/20 Range/Units 23:25 23:25 23:25 WBC 10.2 (4.8-10.8) X10*3/uL RBC 5.16 D (4.20-5.50) X10*6/uL Hgb 15.4 D (12.0-16.0) g/dl Hct 47.4 H D (37-47) % MCV 91.9 (80-98) fL MCH 29.8 (27.0-33.0) pg MCHC 32.5 (31.0-35.0) g/dl RDW 12.4 (11.0-16.0) % Plt Count 373 (160-400) X10*3/uL MPV 10.0 (9.4-12.3) fL Immature Gran % (Auto) 0.2 (0.0-0.4) % Neut % (Auto) 62.6 (45-73) % Lymph % (Auto) 22.3 (20-40) % [place] % (Auto) 8.5 (2-11) % Eos % (Auto) 5.8 H (0-4) % Baso % (Auto) 0.6 (0-2) % Lymph # (Auto) 2.3 (1.2-4.9) X10*3/uL [place] # (Auto) 0.9 (0.1-1.2) X10*3/uL Eos # (Auto) 0.6 H (0.0-0.4) X10*3/uL Baso # (Auto) 0.1 (0.0-0.2) X10*3/uL Abs Immat Gran (auto) 0.02 (0.00-0.03) X10*3/uL Absolute Neuts (auto) 6.4 (2.0-8.3) X10*3/uL Absolute Nucleated RBC 0.000 (0.0-0.012) X10*3/uL Nucleated RBC % (auto) 0.0 (0.0-0.2) /100WBC D-Dimer < 200 NG/ML Hold Blue Top SEE NOTE Sodium 139 (135-145) mmol/L Potassium 4.0 (3.3-5.1) mmol/l Chloride 101 (96-108) mmol/L Carbon Dioxide 25 (22-29) mmol/L Anion Gap 17 (12-20) BUN 12 (9-16) mg/dL Creatinine 0.87 (0.5-1.4) mg/dL Estim Creat Clear Calc 91.5 Estimated GFR > 60 Random Glucose 99 (60-115) mg/dL Calcium 9.1 D (8.4-10.2) mg/dL Magnesium 2.0 (1.6-2.6) mg/dL Total Bilirubin 0.4 (0.0-1.0) mg/dL Direct Bilirubin 0.2 (0.0-0.5) mg/dL AST 20 (5-31) U/L ALT 14 (0-31) U/L Alkaline Phosphatase 79 (39-117) U/L Total Protein 7.7 (6.5-8.0) g/dL Albumin 4.4 (3.5-5.0) g/dL COVID-19 (GEM) (Negative) COVID-19 Clin Com 06/23/20 Range/Units 23:28 WBC (4.8-10.8) X10*3/uL RBC (4.20-5.50) X10*6/uL Hgb (12.0-16.0) g/dl Hct (37-47) % MCV (80-98) fL MCH (27.0-33.0) pg MCHC (31.0-35.0) g/dl RDW (11.0-16.0) % Plt Count (160-400) X10*3/uL MPV (9.4-12.3) fL Immature Gran % (Auto) (0.0-0.4) % Neut % (Auto) (45-73) % Lymph % (Auto) (20-40) % [place] % (Auto) (2-11) % Eos % (Auto) (0-4) % Baso % (Auto) (0-2) % Lymph # (Auto) (1.2-4.9) X10*3/uL [place] # (Auto) (0.1-1.2) X10*3/uL Eos # (Auto) (0.0-0.4) X10*3/uL Baso # (Auto) (0.0-0.2) X10*3/uL Abs Immat Gran (auto) (0.00-0.03) X10*3/uL Absolute Neuts (auto) (2.0-8.3) X10*3/uL Absolute Nucleated RBC (0.0-0.012) X10*3/uL Nucleated RBC % (auto) (0.0-0.2) /100WBC D-Dimer NG/ML Hold Blue Top Sodium (135-145) mmol/L Potassium (3.3-5.1) mmol/l Chloride (96-108) mmol/L Carbon Dioxide (22-29) mmol/L Anion Gap (12-20) BUN (9-16) mg/dL Creatinine (0.5-1.4) mg/dL Estim Creat Clear Calc Estimated GFR Random Glucose (60-115) mg/dL Calcium (8.4-10.2) mg/dL Magnesium (1.6-2.6) mg/dL Total Bilirubin (0.0-1.0) mg/dL Direct Bilirubin (0.0-0.5) mg/dL AST (5-31) U/L ALT (0-31) U/L Alkaline Phosphatase (39-117) U/L Total Protein (6.5-8.0) g/dL Albumin (3.5-5.0) g/dL COVID-19 (GEM) Negative (Negative) COVID-19 Clin Com See Note ECG Data Attestation: I personally reviewed and interpreted this ECG as follows: ECG interpretation date: 06/24/20 ECG interpretation time: 01:02 Interpretation: Rate: 127 Rhythm: sinus tachycardia [place]: normal Normal P waves. Normal EDMOND. Normal QRS complex. ST T wave : normal no MAYELIN qTC: normal prior studies: no acute ischemia The study has been interpreted contemporaneously by me. . Critical Care Time Critical Care Time Critical Care Time: Yes Total Critical Care Time: 60 Attestation: repeat nebulizers, IV medications I attest to this time spent taking care of the patient Discharge Plan Discharge Clinical Impression: Hypoxia, Sinus tachycardia Asthma Qualifiers: Asthma severity: severe Asthma persistence: persistent Asthma complication type: with acute exacerbation Qualified Code(s): J45.51 - Severe persistent asthma with (acute) exacerbation Patient Disposition: Admitted As Inpatient
--- NOTE | 2020-06-23 23:02 | XR_ITS ---
EXAMINATION: XR CHEST CLINICAL INFORMATION: Dyspnea COMPARISON: 05/23/2020 TECHNIQUE: Frontal view of the chest was obtained. FINDINGS: The lungs are hyperinflated and appear clear with no focal consolidation. No evidence of pneumothorax, pleural effusion, or pulmonary edema. The cardiomediastinal contour is unremarkable. No acute osseous findings are seen. XR/XR chest 1V IMPRESSION: Hyperinflated lungs without additional acute findings.
[2020-06-23 23:03] VITALS: BP 119/88; PULSE 148; RESP 20; TEMP 36.9; O2SAT 89; BMI 20.1
[2020-06-23] MEDS: Albuterol Sulfate (0.083%) 2.5 MG/3 ML VIAL.NEB 10 MG INHALE (23:28)
[2020-06-23 23:30] VITALS: O2SAT 93
[2020-06-23] MEDS: methylPREDNISolone Sod Succ/PF 125 MG/2 ML VIAL 60 MG IVPUSH (23:34)
[2020-06-23 23:36] VITALS: O2SAT 91
[2020-06-23] MEDS: Magnesium Sulfate/H2O 2 GM/50 ML PIGGYBACK IV (23:38)
[2020-06-23] MEDS: 0.9 % Sodium Chloride 1,000 ML 999 ML IVCONT (23:38)
[2020-06-23 23:43] LABS: MANUAL DIFF FLAG NO
[2020-06-23 23:45] LABS: Basophils Absolute Auto 0.1 X10*3/uL (0.0-0.2); Basophils Percent Auto 0.6 % (0-2); Eosinophils Absolute Auto 0.6 X10*3/uL (0.0-0.4); Eosinophils Percent Auto 5.8 % (0-4); Hematocrit 47.4 % (37-47); Hemoglobin 15.4 g/dl (12.0-16.0); Imm Gran Abs Auto 0.02 X10*3/uL (0.00-0.03); Imm Gran Pct Auto 0.2 % (0.0-0.4); Lymphocytes Absolute Auto 2.3 X10*3/uL (1.2-4.9); Lymphocytes Percent Auto 22.3 % (20-40); Mean Corpuscular HGB Conc 32.5 g/dl (31.0-35.0); Mean Corpuscular Hemoglobin 29.8 pg (27.0-33.0); Mean Corpuscular Volume 91.9 fL (80-98); Monocytes Absolute Auto 0.9 X10*3/uL (0.1-1.2); Monocytes Percent Auto 8.5 % (2-11); Neutrophils Absolute Auto 6.4 X10*3/uL (2.0-8.3); Neutrophils Percent Auto 62.6 % (45-73); Platelet Count 373 X10*3/uL (160-400); Red Blood Count 5.16 X10*6/uL (4.20-5.50); Red Cell Distribution Width 12.4 % (11.0-16.0); White Blood Count 10.2 X10*3/uL (4.8-10.8)
[2020-06-23 23:46] LABS: COVID-19 Test Negative (Negative); IDNOW Serial# 9DD0AD1C
--- NOTE | 2020-06-23 23:46 | ECG_ITS ---
Test Reason : TACHYCARDIA Blood Pressure : / mmHG Vent. Rate : 127 BPM Atrial Rate : 127 BPM P-R Int : 126 ms QRS Dur : 080 ms QT Int : 338 ms P-R-T Axes : 068 082 053 degrees QTc Int : 491 ms Sinus tachycardia Possible Left atrial enlargement Borderline ECG No previous ECGs available Referred By: Kaylee Ga Electronically Signed By:ALISA ORTIZ
[2020-06-24] VITALS (12 sets, daily range): BP systolic 108–138; BP diastolic 48–96; PULSE 76–144; RESP 12–20; TEMP 36.5–37.2; O2SAT 90–98
[2020-06-24 00:16] LABS: Alanine Aminotransferase 14 U/L (0-31); Albumin Level 4.4 g/dL (3.5-5.0); Alkaline Phosphatase 79 U/L (39-117); Anion Gap 17 (12-20); Aspartate Amino Transferase 20 U/L (5-31); Bilirubin Direct 0.2 mg/dL (0.0-0.5); Bilirubin Total 0.4 mg/dL (0.0-1.0); Blood Urea Nitrogen 12 mg/dL (9-16); Calcium 9.1 mg/dL (8.4-10.2); Carbon Dioxide 25 mmol/L (22-29); Chloride 101 mmol/L (96-108); Creatinine Clr Calc Pharmacy 91.5; Estimated Glomerular Filt Rate > 60; Glucose Random 99 mg/dL (60-115); Sodium 139 mmol/L (135-145); Total Protein 7.7 g/dL (6.5-8.0)
--- NOTE | 2020-06-24 04:17 | P.HPHOSP_ITS ---
History of Present Illness Date of Service: 06/24/20 Chief Complaint: SOB 20-year-old female with past medical history of asthma and DVT on Xarelto presents to the hospital with complaints of sob, cough and wheezing. Pt reports symptoms started about 1 month ago , worsened over the past 2 weeks and few days. she complaints of productive cough, denies sick contacts or travel. has nausea with no vomiting, no abdominal pain, diarrhea or constipation,. she has no fever or chill. no urinary sx, and no lower extremity edema. Reports that she has been taking predisone for the past 1 month with no improvement of symptoms pt is also tachycardic with HR in the 140s. Labs significant for wbc of 10.2, Hgb 15.4, Na of 139, K of 4.0 labs are otherwise unremarkable Cxr negative negative for focal consolidation, with no evidence of pneumothorax, pleural effusion or pulmonary eedema Pmhx: asthma: DVT, asthma, anxiety, depression, PTSD, heroin abuse which she uses less frequently now surgical hx: denies Family hx: foster care, unknown Social history: uses cigrattes sporadilcally per pt, denies marijaua. denies IV drug abuse but uses heroin by sniffing , denies marijuana use Review of Systems Review of Systems: Yes all other systems are reviewed and are negative [facility] Medical History Asthma DVT (deep venous thrombosis) Social History (Updated 06/23/20 @ 23:05 by Kaylee Ga DO) Alcohol intake: current Alcohol intake frequency: a few times a week Smoking Status: Current every day smoker Substance Use Type: Marijuana Advance Directives: No Advance Directives Information Provided: No Meds Allergies Allergy/AdvReac Type Severity Reaction Status Date / Time No Known Allergies Allergy Verified 05/17/20 12:00 [No Known Allergies*] Physical Exam Vital Signs and Narrative: Vital Signs: Last Vital Signs Temp 98.4 F 06/23/20 23:03 Pulse 144 H 06/24/20 03:46 Resp 18 06/24/20 00:00 BP 112/96 H 06/24/20 03:46 Pulse Ox 92 06/24/20 03:46 Body Mass Index 20.1 Const: General: cooperative and no acute distress Eyes: General: appearance normal, both eyes and all related structures Pupils: Equal, round and reactive pupils present Resp: Other: wheezing Effort & Inspection: normal respiratory effort and able to speak in complete sentences Cardio: Rate: regular rate Rhythm: regular rhythm GI: Palpation (GI): Soft to palpation Auscultation: normal bowel sounds Neuro: Cranial nerves: Yes Equal, round and reactive pupils present Cognition (Neuro): normal cognition Extrem: General: Yes normal to inspection and Yes no pedal edema Results Labs CBC and Chem 7: 06/23/20 23:25 06/23/20 23:25 Labs: Laboratory Results - last 24 hr 06/23/20 06/23/20 06/23/20 23:25 23:25 23:25 MCV 91.9 MCH 29.8 MCHC 32.5 RDW 12.4 Plt Count 373 MPV 10.0 Immature Gran % (Auto) 0.2 Neut % (Auto) 62.6 Lymph % (Auto) 22.3 [place] % (Auto) 8.5 Eos % (Auto) 5.8 H Baso % (Auto) 0.6 Lymph # (Auto) 2.3 [place] # (Auto) 0.9 Eos # (Auto) 0.6 H Baso # (Auto) 0.1 Abs Immat Gran (auto) 0.02 Absolute Neuts (auto) 6.4 Absolute Nucleated RBC 0.000 Nucleated RBC % (auto) 0.0 Hold Blue Top SEE NOTE Anion Gap 17 Estim Creat Clear Calc 91.5 Estimated GFR > 60 Random Glucose 99 Calcium 9.1 D Magnesium 2.0 Total Bilirubin 0.4 Direct Bilirubin 0.2 AST 20 ALT 14 Alkaline Phosphatase 79 Total Protein 7.7 Albumin 4.4 COVID-19 ([facility]) COVID-19 Clin Com 06/23/20 23:28 MCV MCH MCHC RDW Plt Count MPV Immature Gran % (Auto) Neut % (Auto) Lymph % (Auto) [place] % (Auto) Eos % (Auto) Baso % (Auto) Lymph # (Auto) [place] # (Auto) Eos # (Auto) Baso # (Auto) Abs Immat Gran (auto) Absolute Neuts (auto) Absolute Nucleated RBC Nucleated RBC % (auto) Hold Blue Top Anion Gap Estim Creat Clear Calc Estimated GFR Random Glucose Calcium Magnesium Total Bilirubin Direct Bilirubin AST ALT Alkaline Phosphatase Total Protein Albumin COVID-19 ([facility]) Negative COVID-19 Clin Com See Note Imaging Radiologist's Impressions: Impressions Chest X-Ray 06/23/20 23:02 IMPRESSION: Hyperinflated lungs without additional acute findings. Assessment and Plan (1) Asthma exacerbation: Qualifiers: Asthma severity: severe Asthma persistence: persistent Qualified Code(s): J45.51 - Severe persistent asthma with (acute) exacerbation Status: Acute (2) Acute and chronic respiratory failure with hypoxia: Status: Acute (3) Sinus tachycardia: Status: Acute This is a 20-year-old female with history of asthma and DVT who presents to the hospital with shortness of breath, coughing, and wheezing. # asthma exacerbation - no evident exacerbating factors - no evidence of pneumonia - start patient on Solu-Medrol 40 IV b.i.d., DuoNeb p.r.n. and scheduled - follow respiratory function # acute on chronic hypoxic respiratory - presented with oxygen of 89% - currently satting 91% on 4 L of oxygen - will treat with Solu-Medrol, DuoNebs - O2 as required # Tachycardia - patient does have a history of DVT, this could be secondary to hypoxia as well as breathing treatments but patient did come in tachycardic - concerning for PE therefore will obtain a D-dimer - continue home Xarelto at this point # DVT - wound continue home Xarelto DVT prophylaxis Xarelto
[2020-06-24 04:35] LABS: D Dimer < 200 NG/ML
[2020-06-24] MEDS: Albuterol/Iprat 2.5/0.5MG 3 ML AMPUL.NEB INHALE ×3 (08:07→19:41)
[2020-06-24] MEDS: 0.9 % Sodium Chloride Flush 3 ML SYRINGE IVFLUSH ×3 (08:17→19:30)
--- NOTE | 2020-06-24 12:15 | P.EN_ITS ---
Event Note Date of Service: 06/24/20 Event Note: Patient seen examined chart reviewed patient admitted early this m orning due to shortness of breath and diagnosed with asthma exacerbation/acute on chronic respiratory failure On examination patient have persistent bilateral expiratory wheeze Assessment and plan Acute asthma exacerbation with acute on chronic respiratory failure will increase dose of Solu-Medrol to 40 mEq t.i.d., continue nebulizer treatment, add cough medication, chest x-ray showed hyperinflated lungs without acute findings.
[2020-06-24] MEDS: Rivaroxaban 20 MG TABLET PO (17:05)
[2020-06-25] VITALS (11 sets, daily range): BP systolic 101–121; BP diastolic 52–66; PULSE 74–99; RESP 14–18; TEMP 36.3–37.2; O2SAT 92–95
[2020-06-25] MEDS: diphenhydrAMINE HCL 50 MG/ML VIAL 25 MG IVPUSH (03:48)
[2020-06-25 04:43] LABS: MANUAL DIFF FLAG NO
[2020-06-25 04:45] LABS: Basophils Percent Auto 0.1 % (0-2); Hematocrit 41.5 % (37-47); Hemoglobin 13.4 g/dl (12.0-16.0); Imm Gran Abs Auto 0.05 X10*3/uL (0.00-0.03); Imm Gran Pct Auto 0.4 % (0.0-0.4); Lymphocytes Percent Auto 6.8 % (20-40); Mean Corpuscular HGB Conc 32.3 g/dl (31.0-35.0); Mean Corpuscular Hemoglobin 30.2 pg (27.0-33.0); Mean Corpuscular Volume 93.5 fL (80-98); Mean Platelet Volume 9.8 fL (9.4-12.3); Monocytes Absolute Auto 1.2 X10*3/uL (0.1-1.2); Monocytes Percent Auto 8.3 % (2-11); Neutrophils Percent Auto 84.4 % (45-73); Platelet Count 299 X10*3/uL (160-400); Red Blood Count 4.44 X10*6/uL (4.20-5.50); Red Cell Distribution Width 12.3 % (11.0-16.0); White Blood Count 14.2 X10*3/uL (4.8-10.8)
[2020-06-25 05:00] LABS: Anion Gap 17 (12-20); Blood Urea Nitrogen 9 mg/dL (9-16); Calcium 8.7 mg/dL (8.4-10.2); Carbon Dioxide 23 mmol/L (22-29); Chloride 103 mmol/L (96-108); Creatinine Clr Calc Pharmacy 118.8; Estimated Glomerular Filt Rate > 60; Glucose Random 117 mg/dL (60-115); Potassium 4.2 mmol/l (3.3-5.1); Sodium 139 mmol/L (135-145)
[2020-06-25] MEDS: 0.9 % Sodium Chloride Flush 3 ML SYRINGE IVFLUSH ×3 (08:23→23:15)
[2020-06-25] MEDS: Rivaroxaban 20 MG TABLET PO (08:23)
[2020-06-25] MEDS: Albuterol/Iprat 2.5/0.5MG 3 ML AMPUL.NEB INHALE ×4 (08:38→19:42)
--- NOTE | 2020-06-25 11:01 | MHC.CM.PN ---
nadine ith pt who is staying at [facility] she will need transportaion when dd pt to be seen buy care team when dcd
--- NOTE | 2020-06-25 11:01 | HO.PM.IMPN ---
Subjective Subjective Date of Service: 06/25/20 Interval History: Patient complaining of persistent shortness of breath and cough, denies recent use of heroin, admits using heroin (sniffing), but not regularly, denies daily tobacco use, no fevers no chills. Review of Systems General no headache, no dizziness no fever chills. CVS no chest pain, no palpitation. Respiratory cough, shortness of breath Gastrointestinal no nausea, no vomiting, no abdominal pain Physical Exam Vital Signs: Vital Signs: Last Vital Signs Temp 98.1 F 06/25/20 07:44 Pulse 74 06/25/20 08:39 Resp 18 06/25/20 07:44 BP 104/54 L 06/25/20 07:44 Pulse Ox 95 06/25/20 07:44 Body Mass Index 20.1 Const: Other: General patient resting comfortably in no acute distress. Neck is supple no JVD. CVS regular rate rhythm, Respiratory lungs bilateral expiratory rhonchi, no respiratory distress Gastrointestinal abdomen soft, nontender, bowel sounds audible Extremities no clubbing cyanosis or edema. Neuro nonfocal , speech clear. Skin no rash Objective Data Current Medications Generic Name Dose Route Start Last Admin Trade Name Freq PRN Reason Stop Dose Admin Acetaminophen 650 mg 06/24/20 04:16 Acetaminophen 325 Mg Tablet PO Q6H PRN Pain, Mild (Pain Scale 1-3) Albuterol/Ipratropium 3 ml 06/24/20 08:00 06/25/20 08:38 Albuterol/Iprat 2.5/0.5mg 3 Ml Ampul.Neb INHALE 3 ml RQ4H WHILE AWAKE JARRETT Administration Albuterol/Ipratropium 3 ml 06/24/20 04:16 Albuterol/Iprat 2.5/0.5mg 3 Ml Ampul.Neb INHALE RQ4H PRN Shortness of Breath/Wheezing Docusate Sodium 100 mg 06/24/20 04:16 Docusate Sodium 100 Mg Capsule PO DAILY PRN Constipation Guaifenesin/Dextromethorphan 10 ml 06/24/20 12:14 Guaifenesin Dm 100/10/5 Ml 5 Ml Syrup PO Q6H PRN Cough Methylprednisolone Sodium Succinate 40 mg 06/24/20 12:15 06/25/20 03:08 Methylprednisolone Sod Succ/Pf 40 Mg/Ml Vial IVPUSH 40 mg Q8H JARRETT Administration Ondansetron HCl 4 mg 06/24/20 04:16 Ondansetron Hcl 4 Mg/2 Ml Vial IVPUSH Q8H PRN Nausea and Vomiting Pharmacy Consult 1 each 06/23/20 23:01 Consult Rx Perform Med Rec MISCELLANE ONCE PRN Consult order Rivaroxaban 20 mg 06/24/20 09:00 06/25/20 08:23 Rivaroxaban 20 Mg Tablet PO 20 mg DAILY JARRETT Administration Sodium Chloride 3 ml 06/24/20 08:00 06/25/20 08:23 0.9 % Sodium Chloride Flush 3 Ml Syringe IVFLUSH 3 ml QSHIFT JARRETT Administration Trazodone HCl 25 mg 06/25/20 21:00 Trazodone Hcl 25 Mg Halftab PO BEDTIME [facility] Labs CBC & Chem 7: 06/25/20 04:39 06/25/20 04:39 Assessment and Plan (1) Acute and chronic respiratory failure with hypoxia: Status: Acute (2) Asthma exacerbation: Status: Acute (3) Substance abuse or dependence: Status: Acute Assessment and Plan: 20-year-old female with history of asthma and DVT who presents to the hospital with shortness of breath, coughing, and wheezing. # acute asthma exacerbation with acute on chronic hypoxic respiratory failure Persistent shortness of breath and cough, IV Solu-Medrol changed to 40 mg Q 8 hour continue scheduled and as needed DuoNeb will add cough medication Strongly advised to abstain from tobacco use and illicit drug use, will gradually wean oxygen patient is not on home O2. # active substance use disorder Patient's sniffs heroin, uses marijuana, prior urine toxicology positive for cocaine however patient declined current use, will obtain care team consult, counseling done # history of right popliteal DVT diagnosed in outside hospital 05/13/2020, patient was given a script of Xarelto, but patient noncompliant since she is homeless and has not been taking her medications Patient placed on Xarelto 20 mg daily, tachycardia improved. Strongly advised to compliant with medication. # DVT Xarelto
[2020-06-25] MEDS: traZODone HCL 25 MG HALFTAB PO (20:40)
[2020-06-26 03:35] VITALS: BP 107/60; PULSE 100; RESP 20; TEMP 36.5; O2SAT 92
[2020-06-26 07:29] VITALS: BP 96/56; PULSE 85; RESP 15; TEMP 36.6; O2SAT 94
[2020-06-26] MEDS: Rivaroxaban 20 MG TABLET PO (08:10)
[2020-06-26] MEDS: 0.9 % Sodium Chloride Flush 3 ML SYRINGE IVFLUSH ×3 (08:10→20:22)
[2020-06-26 11:19] VITALS: BP 112/77; PULSE 90; RESP 18; TEMP 37; O2SAT 95
--- NOTE | 2020-06-26 11:59 | MHC.RECOVSUP ---
Recovery Support note: Patient is a 20 year old Malawian speaking female who [place] [facility] due to difficulty breathing and was medically admitted. Patient is known to this song writer from previous consultations. This song writer and the recovery support nurse met with patient in room 370-2 of [facility] to discuss recovery and treatment options. Patient was laying in bed awake with the lights off and was willing to discuss substance use with the recovery support team. Patient reports that she is still using heroin here and there but that she has not experienced any withdrawal symptoms while in the hospital. Informed patient that we could get her back on Suboxone if she is interested and if she starts to feel withdrawal to inform her RN. Patient acknowledged. Discussed the CCC and provided patient with information on how to get connected to our clinic. Patient reports some interest in going to a treatment facility after discharging from the hospital, however patient reports she would only be willing to go to [facility] as she does not want to lose access to her phone for personal reasons. Discussed with patient how [facility] does not have a CSS to outside referrals and that her best option would be to follow up with them at or around discharge to plan an ATS admission. Patient acknowledged and accepted information on [facility]. This song writer discussed IOP and outpatient support options with patient. This song writer and recovery support nurse provided patient with business cards in the event she would like to get in touch with us at a later time. Discussed consultation with patient's RN, Wolf.
--- NOTE | 2020-06-26 13:53 | HO.PM.IMPN ---
Subjective Subjective Date of Service: 06/26/20 Interval History: Patient feels better but complaining of persistent shortness of breath does not have home inhalers or any medications for asthma at home, claims that she is homeless. Review of Systems General no headache, no dizziness no fever chills. CVS no chest pain, no palpitation. Respiratory cough, shortness of breath Gastrointestinal no nausea, no vomiting, no abdominal pain Physical Exam Vital Signs: Vital Signs: Last Vital Signs Temp 98.6 F 06/26/20 11:19 Pulse 90 06/26/20 11:19 Resp 18 06/26/20 11:19 BP 112/77 06/26/20 11:19 Pulse Ox 95 06/26/20 11:19 Body Mass Index 20.1 General patient resting comfortably in no acute distress. Neck is supple no JVD. CVS regular rate rhythm, Respiratory lungs persistent bilateral expiratory rhonchi, no respiratory distress Gastrointestinal abdomen soft, nontender, bowel sounds audible Extremities no clubbing cyanosis or edema. Neuro nonfocal , speech clear. Skin no rash Objective Data Current Medications Generic Name Dose Route Start Last Admin Trade Name Freq PRN Reason Stop Dose Admin Acetaminophen 650 mg 06/24/20 04:16 Acetaminophen 325 Mg Tablet PO Q6H PRN Pain, Mild (Pain Scale 1-3) Albuterol/Ipratropium 3 ml 06/24/20 08:00 06/26/20 10:56 Albuterol/Iprat 2.5/0.5mg 3 Ml Ampul.Neb INHALE Not Given RQ4H WHILE AWAKE [facility] Albuterol/Ipratropium 3 ml 06/24/20 04:16 Albuterol/Iprat 2.5/0.5mg 3 Ml Ampul.Neb INHALE RQ4H PRN Shortness of Breath/Wheezing Docusate Sodium 100 mg 06/24/20 04:16 Docusate Sodium 100 Mg Capsule PO DAILY PRN Constipation Guaifenesin/Dextromethorphan 10 ml 06/24/20 12:14 Guaifenesin Dm 100/10/5 Ml 5 Ml Syrup PO Q6H PRN Cough Methylprednisolone Sodium Succinate 40 mg 06/24/20 12:15 06/26/20 13:25 Methylprednisolone Sod Succ/Pf 40 Mg/Ml Vial IVPUSH 40 mg Q8H JARRETT Administration Ondansetron HCl 4 mg 06/24/20 04:16 Ondansetron Hcl 4 Mg/2 Ml Vial IVPUSH Q8H PRN Nausea and Vomiting Pharmacy Consult 1 each 06/23/20 23:01 Consult Rx Perform Med Rec MISCELLANE ONCE PRN Consult order Rivaroxaban 20 mg 06/24/20 09:00 06/26/20 08:10 Rivaroxaban 20 Mg Tablet PO 20 mg DAILY JARRETT Administration Sodium Chloride 3 ml 06/24/20 08:00 06/26/20 08:10 0.9 % Sodium Chloride Flush 3 Ml Syringe IVFLUSH 3 ml QSHIFT JARRETT Administration Trazodone HCl 25 mg 06/25/20 21:00 06/25/20 20:40 Trazodone Hcl 25 Mg Halftab PO 25 mg BEDTIME JARRETT Administration Labs CBC & Chem 7: 06/25/20 04:39 06/25/20 04:39 Assessment and Plan (1) Substance abuse or dependence: Status: Acute (2) Acute and chronic respiratory failure with hypoxia: Status: Acute (3) Asthma exacerbation: Status: Acute Assessment and Plan: 20-year-old female with history of asthma and DVT who presents to the hospital with shortness of breath, coughing, and wheezing. # acute asthma exacerbation with acute on chronic hypoxic respiratory failure Persistent shortness of breath and cough, slowly improving on IV Solu-Medrol 40 mg Q 8 hour continue scheduled and as needed DuoNeb , cough medication Strongly advised to abstain from tobacco use and illicit drug use, oxygen weaned off, will add Breo. # active substance use disorder Patient's sniffs heroin, uses marijuana, prior urine toxicology positive for cocaine however patient declined current use, will obtain care team consult, counseling done # history of right popliteal DVT diagnosed in outside hospital 05/13/2020, patient was given a script of Xarelto, as per patient she bought the medication but not taking them, Strongly advised to continue medications upon discharge, no right leg swelling noted, on Xarelto 20 mg daily, tachycardia improved. # DVT Xarelto
[2020-06-26 16:00] VITALS: BP 122/71; PULSE 81; RESP 20; TEMP 36.7; O2SAT 94
[2020-06-26 19:48] VITALS: BP 111/71; PULSE 106; RESP 14; TEMP 36.7; O2SAT 97
[2020-06-26] MEDS: traZODone HCL 25 MG HALFTAB PO (20:22)
[2020-06-27] VITALS: BP 119/82; PULSE 116; RESP 18; TEMP 36.9; O2SAT 96
[2020-06-27 03:46] VITALS: BP 102/54; PULSE 101; RESP 18; TEMP 36.9; O2SAT 94
[2020-06-27 08:00] VITALS: BP 99/61; PULSE 100; RESP 19; TEMP 37.1; O2SAT 95
[2020-06-27] MEDS: Rivaroxaban 20 MG TABLET PO (09:30)
[2020-06-27] MEDS: 0.9 % Sodium Chloride Flush 3 ML SYRINGE IVFLUSH (09:31)
--- NOTE | 2020-06-27 11:40 | MHC.CM.PN ---
Addendum entered by Lilian Lai RN 06/27/20 11:43: PT ARRANGED FOR OWN TRANSPORTATION AND REPORTED TO RN HER FRIEND WAS PICKING HER UP. Original Note: PT DISCHARGING AMA TODAY, PT
--- NOTE | 2020-06-27 12:41 | P.DS_ITS ---
DS: Providers Provider Date of Service: 06/27/20 Date of admission: 06/24/20 04:16 Primary care physician: None Physician Consults: 06/26/20 14:14 Consult to Care Team Routine Comment: Reason for consultation: Substance abuse DS: Diagnosis Discharge Diagnosis (1) Substance abuse or dependence: Status: Acute (2) Acute and chronic respiratory failure with hypoxia: Status: Acute (3) Asthma exacerbation: Status: Acute DS: Medications Discharge Medications Home Medications: Home Medications Medication Instructions Recorded Confirmed levofloxacin 500 mg PO BID 06/24/20 06/24/20 prednisone 20 mg PO BID 06/24/20 06/24/20 Previous Rx's Medication Instructions Recorded rivaroxaban [Xarelto DVT-PE Treat 1 ea PO PER PKG DIR #51 ea 05/17/20 30d Start] rivaroxaban [Xarelto DVT-PE Treat 1 ea PO BID #51 ea 05/18/20 30d Start] doxycycline monohydrate 100 mg PO BID 10 Days #20 cap 05/23/20 DS: Summary Hospital Course Hospital Course: History of presenting illness 20-year-old female with past medical history of asthma and DVT on Xarelto presents to the hospital with complaints of sob, cough and wheezing. Pt reports symptoms started about 1 month ago , worsened over the past 2 weeks and few days. she complaints of productive cough, denies sick contacts or travel. has nausea with no vomiting, no abdominal pain, diarrhea or constipation,. she has no fever or chill. no urinary sx, and no lower extremity edema. Reports that she has been taking predisone for the past 1 month with no improvement of symptoms pt is also tachycardic with HR in the 140s. Labs significant for wbc of 10.2, Hgb 15.4, Na of 139, K of 4.0 labs are otherwise unremarkable Cxr negative negative for focal consolidation, with no evidence of pneumothorax, pleural effusion or pulmonary eedema Pmhx: asthma: DVT, asthma, anxiety, depression, PTSD, heroin abuse 20-year-old female with history of asthma and DVT who presents to the hospital with shortness of breath, cough, and wheezing. # acute asthma exacerbation with acute on chronic hypoxic respiratory failure patient was admitted to medical floor and treated with IV Solu Medrol, scheduled and as needed DuoNeb cough medication Breo patient oxygenation improved but she continued to have bilateral rhonchi, patient noted to be sleepy all the time curled up in bed not eating well therefore security check her bag and found old bags of heroin soon after that patient decided to leave hospital against medical advice, patient is homeless gives different information to different providers that she is currently living with friends And collecting unemployment, patient made aware of risk of worsening respiratory symptoms but was adamant to leave. # active substance use disorder Patient's sniffs heroin, uses marijuana, prior urine toxicology positive for cocaine however patient declined current use, but found to have empty bags of heroin in her possession # history of right popliteal DVT diagnosed in outside hospital 05/13/2020, patient was given a script of Xarelto, as per patient she bought the medication but not taking them, Strongly advised to continue medications upon discharge, no right leg swelling noted. Time Spent with Patient Time attestation: Total time spent providing and/or coordinating discharge services: Discharge coordination time: Greater than 30 minutes Physical Exam Vital Signs: Vital Signs: Last Vital Signs Temp 98.8 F 06/27/20 08:00 Pulse 100 06/27/20 08:00 Resp 19 06/27/20 08:00 BP 99/61 06/27/20 08:00 Pulse Ox 95 06/27/20 08:00 Body Mass Index 20.1 General resting comfortably in no acute distress. Neck is supple no JVD. CVS regular rate rhythm, Respiratory lungs persistent bilateral expiratory rhonchi, no respiratory distress Gastrointestinal abdomen soft, nontender, bowel sounds audible Extremities no clubbing cyanosis or edema. Neuro nonfocal , speech clear. Skin no rash DS: Data Data Completed and Pending Labs on day of discharge: Laboratory Tests 06/23/20 06/23/20 06/23/20 23:25 23:25 23:25 WBC 10.2 RBC 5.16 D Hgb 15.4 D Hct 47.4 H D MCV 91.9 MCH 29.8 MCHC 32.5 RDW 12.4 Plt Count 373 MPV 10.0 Immature Gran % (Auto) 0.2 Neut % (Auto) 62.6 Lymph % (Auto) 22.3 [place] % (Auto) 8.5 Eos % (Auto) 5.8 H Baso % (Auto) 0.6 Lymph # (Auto) 2.3 [place] # (Auto) 0.9 Eos # (Auto) 0.6 H Baso # (Auto) 0.1 Abs Immat Gran (auto) 0.02 Absolute Neuts (auto) 6.4 Absolute Nucleated RBC 0.000 Nucleated RBC % (auto) 0.0 D-Dimer < 200 Hold Blue Top SEE NOTE Sodium 139 Potassium 4.0 Chloride 101 Carbon Dioxide 25 Anion Gap 17 BUN 12 Creatinine 0.87 Estim Creat Clear Calc 91.5 Estimated GFR > 60 Random Glucose 99 Calcium 9.1 D Magnesium 2.0 Total Bilirubin 0.4 Direct Bilirubin 0.2 AST 20 ALT 14 Alkaline Phosphatase 79 Total Protein 7.7 Albumin 4.4 COVID-19 ([facility]) COVID-19 [employer] Com 06/23/20 06/25/20 06/25/20 23:28 04:39 04:39 WBC 14.2 H RBC 4.44 Hgb 13.4 Hct 41.5 MCV 93.5 MCH 30.2 MCHC 32.3 RDW 12.3 Plt Count 299 MPV 9.8 Immature Gran % (Auto) 0.4 Neut % (Auto) 84.4 H Lymph % (Auto) 6.8 L [place] % (Auto) 8.3 Eos % (Auto) 0.0 Baso % (Auto) 0.1 Lymph # (Auto) 1.0 L [place] # (Auto) 1.2 Eos # (Auto) 0.0 Baso # (Auto) 0.0 Abs Immat Gran (auto) 0.05 H Absolute Neuts (auto) 12.0 H Absolute Nucleated RBC 0.000 Nucleated RBC % (auto) 0.0 D-Dimer Hold Blue Top Sodium 139 Potassium 4.2 Chloride 103 Carbon Dioxide 23 Anion Gap 17 BUN 9 Creatinine 0.67 Estim Creat Clear Calc 118.8 Estimated GFR > 60 Random Glucose 117 H Calcium 8.7 Magnesium Total Bilirubin Direct Bilirubin AST ALT Alkaline Phosphatase Total Protein Albumin COVID-19 ([facility]) Negative COVID-19 Clin Com See Note Discharge Plan Discharge Patient Disposition: Left Against Medical Advice Referrals: Physician,None [Primary Care Provider] - Discharge Medications: No Action Xarelto DVT-PE Treat 30d Start 15 mg (42)- 20 mg (9) tablets,dose pack 1 ea PO PER PKG DIR Qty: 51 RF: 0 Xarelto DVT-PE Treat 30d Start 15 mg (42)- 20 mg (9) tablets,dose pack 1 ea PO BID Qty: 51 RF: 0 doxycycline monohydrate 100 mg capsule 100 mg PO BID 10 Days Qty: 20 RF: 0 prednisone 20 mg tablet 20 mg PO BID RF: 0 levofloxacin 500 mg tablet 500 mg PO BID RF: 0 Discharge Orders: Discharge Order (Routine); Ordered 06/27/20 Ordered By: Sam Morales Diet: regular diet Activity on Discharge: As tolerated Care Plan Goals: Abstain from illicit drug use Health Concerns: Active substance abuse/homeless Plan of Treatment: Follow-up with PCP Discharge Date/Time: 06/27/20 11:40
== END 2020-06-27 11:40 | disposition left against medical advice (07) | DRG 141 ==
LOC: HO.ED 23:50 → HO.EDOVER 06-24 04:21 → HO.S3 06-24 11:34
PROVIDERS: Admitting Provider Internal Medicine; Emergency Provider Emergency Medicine; Visit Provider Hospitalist
DX: J45.51 Severe persistent asthma with (acute) exacerbation (principal); J96.21 Acute and chronic respiratory failure with hypoxia; F14.10 Cocaine abuse, uncomplicated; F17.210 Nicotine dependence, cigarettes, uncomplicated; Z71.6 Tobacco abuse counseling; Z20.822 Contact with and (suspected) exposure to COVID-19; Z86.718 Personal history of other venous thrombosis and embolism; Z79.52 Long term (current) use of systemic steroids; Z79.01 Long term (current) use of anticoagulants; Z79.899 Other long term (current) drug therapy
CPT/HCPCS: 36415; 71045; 80048; 80076; 83735; 85025; 85379; 87635; 93005; 94640; 94644; 96365; 96375; 99285; 99291; J1200; J2920; J2930; J3475

== ENCOUNTER 2020-07-13 14:14 | Inpatient (IN) | payer OTHER, SELFPAY ==
[2020-07-13] VITALS (9 sets, daily range): BP systolic 92–114; BP diastolic 49–80; PULSE 99–168; RESP 12–18; TEMP 37; O2SAT 75–98; BMI 20.1
--- NOTE | ~2020-07-13 | XR_ITS ---
EXAMINATION: XR CHEST CLINICAL INFORMATION: Shortness of breath and hypoxia COMPARISON: Previous chest x-ray most recent 06/23/2020 TECHNIQUE: Frontal view of the chest was obtained. FINDINGS: The cardiac and mediastinal contours are normal. The lungs are well inflated. There is bronchial wall thickening and airspace disease at the right lung base suggestive of bronchopneumonia. The left lung is clear. There is no pleural effusion or pneumothorax. Bony structures are unremarkable. XR/XR chest 1V IMPRESSION: Bronchopneumonia at the right lung base.
--- NOTE | ~2020-07-13 | CT_ITS ---
EXAMINATION: CTA CHEST PE STUDY CLINICAL INFORMATION: hypoxia, tachycardia, elevated DDIMER, hx DVT COMPARISON: No pertinent prior studies are available for comparison. TECHNIQUE: Prior to contrast administration, noncontrast localization images were obtained. After the administration of 70 mL of Omnipaque 350 IV contrast, contiguous thin slice helical images were obtained through the thorax. Reformatted MIP images in the coronal and sagittal planes were obtained at the acquisition workstation. This CT examination was performed using dose optimization techniques as appropriate, variously including the following: *Automated exposure control *Adjustment of mA and/or kV according to patient size (this includes techniques or standardized protocols for targeted exams where dose is matched to indication/reason for exam; i.e. extremities or head) *Use of iterative reconstruction technique DLP: 203 mGy-cm. FINDINGS: The bolus timing on this study was acceptable for visualization of the pulmonary arterial tree. There are no intraluminal pulmonary arterial filling defects present to suggest pulmonary embolism. Patchy lateral airspace disease is seen more so in the posterior aspect of the left upper lobe and superior segment right lower lobe. Subtle areas of mucus or debris impacted bronchi are suggested as well. Infectious etiologies likely explain the areas of bronchial impaction. No abnormal pulmonary nodules or masses are appreciated. No significant hilar or mediastinal adenopathy. There is no evidence of pleural effusion or pneumothorax. The heart is normal in size. No evidence of ventricular septal bowing or right heart strain. Great vessels are normal. Otherwise the mediastinum is unremarkable. There is no pericardial effusion or pericardial thickening. Limited evaluation of the upper abdominal viscera is unremarkable. CT/CT angio chest PE protocol IMPRESSION: No evidence for central pulmonary emboli. Patchy bilateral airspace disease is seen with denser peribronchial airspace disease in the posterior aspect of the left upper lobe and superior segment right lower lobe. Condition and there is evidence for debris or mucus impacted bronchi bilaterally again more suggestive of infectious etiologies. Clinical correlation recommended VTE: Negative
--- NOTE | 2020-07-13 15:30 | ED.ASTHMA ---
HPI - Asthma General Chief Complaint: Asthma Stated Complaint: asthma,needs pump also Time Seen by Provider: 07/13/20 15:21 Source: patient Mode of arrival: ambulatory Limitations: no limitations History of Present Illness HPI Narrative: 20 y/o female with history of asthma, IVDA, RLE DVT noncompliant with anticoagulation presenting with SOB and wheezing for the last 1 week. She has poorly controlled asthma at baseline and ran out of her inhaler one month ago. She has been living in a motel and is exposed to their harsh cleaning chemicals. She states she stopped smoking cigarettes 1 week ago when she started feeling poorly. She reports last IVDA 1 week ago as well. She arrives to the ED hypoxic to 75% on room air with increased WOB. MD complaint: asthma attack , shortness of breath and wheezing Onset (ago): day(s) (7) Severity: severe and worse than usual Context: ran out of meds Associated symptoms: productive cough and chest pain Asthma History: childhood onset Related Data Current Asthma Therapy: none Home Medications Medication Instructions Recorded Confirmed levofloxacin 500 mg PO BID 06/24/20 06/24/20 prednisone 20 mg PO BID 06/24/20 06/24/20 Previous Rx's Medication Instructions Recorded rivaroxaban [Xarelto DVT-PE Treat 1 ea PO PER PKG DIR #51 ea 05/17/20 30d Start] rivaroxaban [Xarelto DVT-PE Treat 1 ea PO BID #51 ea 05/18/20 30d Start] doxycycline monohydrate 100 mg PO BID 10 Days #20 cap 05/23/20 Allergies Allergy/AdvReac Type Severity Reaction Status Date / Time No Known Allergies Allergy Verified 05/17/20 12:00 [No Known Allergies*] Review of Systems Review of Systems: Constitutional: No Fever, No Chills ENT/Mouth: No sore throat, No Rhinorrhea, No Swallowing Difficulty Eyes: No Eye Pain, No Swelling, No Redness Cardiovascular: + Chest Pain, + SOB, No Orthopnea, No Edema Respiratory: + Cough, + Sputum, + Wheezing, + dyspnea Gastrointestinal: No Nausea, No Vomiting, No Diarrhea, No abdominal Pain Genitourinary: No Dysuria, No Urinary Frequency, No Hematuria Musculoskeletal: No joint pain, No Myalgias Skin: + Skin Lesions, No rash Neuro: No Weakness, No Numbness, No Dizziness, No Headache Psych: + Anxiety/Panic, No Depression Heme/Lymph: + Bruising, No Lymphadenopathy Endocrine: No Polyuria, No Polydipsia PMFSH Past Medical History Attestation statement: The following information was validated with the patient. Medical History Asthma DVT (deep venous thrombosis) Social History Social History (Updated 06/23/20 @ 23:05 by Kaylee Ga DO) Housing: Homeless Alcohol intake: never Smoking Status: Current some day smoker Cigarettes Per Day: 2 Use of substances other than those prescribed or required for medical reasons: Yes Substance Use Type: IV Drugs Advance Directives: No Advance Directives Information Provided: Yes service: No Physical Exam Vital Signs: Vital Signs: Last Vital Signs Temp 98.6 F 07/13/20 15:20 Pulse 105 H 07/13/20 20:34 Resp 18 07/13/20 18:52 BP 92/56 L 07/13/20 17:18 Pulse Ox 88 L 07/13/20 18:52 Body Mass Index 20.1 Appearance: Alert, young female in severe respiratory distress Eyes: Pupils equal, round and reactive to light. ENT: Pharynx normal. Neck: Normal inspection. Neck supple. CVS: Tachycardic, regular rhythm. Pulses normal. Respiratory: Severe respiratory distress. Coarse throughout with inspiratory and expiratory wheezes, prolonged expiratory phase. Abdomen: Soft and nontender. +BS x4 Skin: Skin warm and dry. Normal skin color. Multiple track ocasio seen on bilateral dorsal hands Extremities: No lower extremity edema. Negative Fam's sign. Neuro: Oriented X 3. No motor deficit. No sensory deficit. Course Course Course Narrative: 20 y/o female presenting with acute hypoxic respiratory failure 2/2 acute asthma exacerbation, with medication non-compliance and possible acute bronchitis as etiologies. Initial sats in 70's, improved w/ 6L NC however she acutely decompensated after IV solumedrol was administered. She became tachypneic to 40s with accessory muscle use, rapid, shallow breathing, HR up to 180's. Doubt allergic reaction to medrol - she was placed on 100% NRB. RT called to bedside STAT and hour long albuterol nebulizer started. Dr. Rubio at the bedside for evaluation as well. Will monitor very closely. She may require intubation if she does not improve quickly. Reevaluation(s) Reevaluation #1: Patient half way through nebulizer and her WOB has improved. She is saturating 89-90% on NRB mask. She reports feeling significantly improved. CXR showing ?RLL pna. Azithromycin and Rocephin ordered for cover for CAP. H/H significant hemoconcentrated likely due to dehydration 1L IVF ordered. Other labs still pending. Reevaluation #2: Patient slightly lethargic. Remains very coarse, tight and wheezy but WOB significantly improved. Will check ABG and repeat hour long nebulilzer. DDIMER hemolyzed so needed to be resent. Reevaluation #3: ABG showing compensated respiratory acidosis with hypoxemia: 7.34/60/57. She easily arouses to voice and WOB is significantly improved. Aeration starting to improve as well. DDIMER 314 - will proceed with CTA for further evaluation of PE in the setting of untreated DVT. Repeat ABG ordered as well as Duoneb. She is agreeable to admission and understands there is a high likelihood of if she leaves AMA. Repeat ABG showed improving PCO2. Resp status improved on 4L NC. Given Duoneb with improvement. Continue to await CTA, awaiting Upreg. Patient signed out to Mercedes RECREATIONAL DIRECTOR who will assume care. MDM - Asthma Lab Data Result diagrams: 07/13/20 15:52 07/13/20 15:52 Labs: Lab Results 07/13/20 07/13/20 07/13/20 Range/Units 15:52 15:52 15:52 WBC 9.7 (4.8-10.8) X10*3/uL RBC 6.24 H D (4.20-5.50) X10*6/uL Hgb 18.2 H D (12.0-16.0) g/dl Hct 56.6 H D (37-47) % MCV 90.7 (80-98) fL MCH 29.2 (27.0-33.0) pg MCHC 32.2 (31.0-35.0) g/dl RDW 12.2 (11.0-16.0) % Plt Count 386 D (160-400) X10*3/uL MPV 10.2 (9.4-12.3) fL Immature Gran % (Auto) 0.1 (0.0-0.4) % Neut % (Auto) 29.1 L (45-73) % Lymph % (Auto) 55.0 H (20-40) % Foard % (Auto) 6.7 (2-11) % Eos % (Auto) 8.8 H (0-4) % Baso % (Auto) 0.3 (0-2) % Lymph # (Auto) 5.3 H (1.2-4.9) X10*3/uL Foard # (Auto) 0.7 (0.1-1.2) X10*3/uL Eos # (Auto) 0.9 H (0.0-0.4) X10*3/uL Baso # (Auto) 0.0 (0.0-0.2) X10*3/uL Abs Immat Gran (auto) 0.01 (0.00-0.03) X10*3/uL Absolute Neuts (auto) 2.8 (2.0-8.3) X10*3/uL Absolute Nucleated RBC 0.000 (0.0-0.012) X10*3/uL Nucleated RBC % (auto) 0.0 (0.0-0.2) /100WBC Smear Tech's Comments VERIFIED D-Dimer NG/ML Hold Blue Top Cancelled ABG pH (7.35-7.45) ABG pCO2 (32-45) mmHg ABG pO2 (83-108) mmHg ABG HCO3 (22-26) mmol/L ABG O2 Saturation % ABG Base Excess Oxygen Given Sodium 142 (135-145) mmol/L Potassium 5.1 (3.3-5.1) mmol/L Chloride 99 (96-108) mmol/L Carbon Dioxide 33 H (22-29) mmol/L Anion Gap 15 (12-20) BUN 8 L (9-16) mg/dL Creatinine 0.83 (0.5-1.4) mg/dL Estim Creat Clear Calc 96.0 Estimated GFR > 60 Random Glucose 148 H (60-115) mg/dL Lactic Acid (0.5-2.0) mmol/L Lactic Acid Fup @ 2Hr (0.5-2.0) mmol/L Calcium 9.2 (8.4-10.2) mg/dL Magnesium 3.1 H (1.6-2.6) mg/dL Total Bilirubin 0.3 (0.0-1.0) mg/dL Direct Bilirubin 0.2 (0.0-0.5) mg/dL AST 25 (5-31) U/L ALT 12 (0-31) U/L Alkaline Phosphatase 75 (39-117) U/L Total Protein 7.6 (6.5-8.0) g/dL Albumin 3.9 (3.5-5.0) g/dL Procalcitonin ng/mL COVID-19 (GEM) (Negative) COVID-19 Clin Com 07/13/20 07/13/20 07/13/20 Range/Units 15:52 15:52 15:52 WBC (4.8-10.8) X10*3/uL RBC (4.20-5.50) X10*6/uL Hgb (12.0-16.0) g/dl Hct (37-47) % MCV (80-98) fL MCH (27.0-33.0) pg MCHC (31.0-35.0) g/dl RDW (11.0-16.0) % Plt Count (160-400) X10*3/uL MPV (9.4-12.3) fL Immature Gran % (Auto) (0.0-0.4) % Neut % (Auto) (45-73) % Lymph % (Auto) (20-40) % Foard % (Auto) (2-11) % Eos % (Auto) (0-4) % Baso % (Auto) (0-2) % Lymph # (Auto) (1.2-4.9) X10*3/uL Foard # (Auto) (0.1-1.2) X10*3/uL Eos # (Auto) (0.0-0.4) X10*3/uL Baso # (Auto) (0.0-0.2) X10*3/uL Abs Immat Gran (auto) (0.00-0.03) X10*3/uL Absolute Neuts (auto) (2.0-8.3) X10*3/uL Absolute Nucleated RBC (0.0-0.012) X10*3/uL Nucleated RBC % (auto) (0.0-0.2) /100WBC Smear Tech's Comments D-Dimer NG/ML Hold Blue Top ABG pH (7.35-7.45) ABG pCO2 (32-45) mmHg ABG pO2 (83-108) mmHg ABG HCO3 (22-26) mmol/L ABG O2 Saturation % ABG Base Excess Oxygen Given Sodium (135-145) mmol/L Potassium (3.3-5.1) mmol/L Chloride (96-108) mmol/L Carbon Dioxide (22-29) mmol/L Anion Gap (12-20) BUN (9-16) mg/dL Creatinine (0.5-1.4) mg/dL Estim Creat Clear Calc Estimated GFR Random Glucose (60-115) mg/dL Lactic Acid 3.3 H* (0.5-2.0) mmol/L Lactic Acid Fup @ 2Hr (0.5-2.0) mmol/L Calcium (8.4-10.2) mg/dL Magnesium (1.6-2.6) mg/dL Total Bilirubin (0.0-1.0) mg/dL Direct Bilirubin (0.0-0.5) mg/dL AST (5-31) U/L ALT (0-31) U/L Alkaline Phosphatase (39-117) U/L Total Protein (6.5-8.0) g/dL Albumin (3.5-5.0) g/dL Procalcitonin 0.04 ng/mL COVID-19 (GEM) Negative (Negative) COVID-19 Clin Com See Note 07/13/20 07/13/20 07/13/20 Range/Units 18:20 18:29 18:29 WBC (4.8-10.8) X10*3/uL RBC (4.20-5.50) X10*6/uL Hgb (12.0-16.0) g/dl Hct (37-47) % MCV (80-98) fL MCH (27.0-33.0) pg MCHC (31.0-35.0) g/dl RDW (11.0-16.0) % Plt Count (160-400) X10*3/uL MPV (9.4-12.3) fL Immature Gran % (Auto) (0.0-0.4) % Neut % (Auto) (45-73) % Lymph % (Auto) (20-40) % Foard % (Auto) (2-11) % Eos % (Auto) (0-4) % Baso % (Auto) (0-2) % Lymph # (Auto) (1.2-4.9) X10*3/uL Foard # (Auto) (0.1-1.2) X10*3/uL Eos # (Auto) (0.0-0.4) X10*3/uL Baso # (Auto) (0.0-0.2) X10*3/uL Abs Immat Gran (auto) (0.00-0.03) X10*3/uL Absolute Neuts (auto) (2.0-8.3) X10*3/uL Absolute Nucleated RBC (0.0-0.012) X10*3/uL Nucleated RBC % (auto) (0.0-0.2) /100WBC Smear Tech's Comments D-Dimer 315 NG/ML Hold Blue Top ABG pH 7.34 L (7.35-7.45) ABG pCO2 60 H* (32-45) mmHg ABG pO2 57 L (83-108) mmHg ABG HCO3 33 H (22-26) mmol/L ABG O2 Saturation 87.0 % ABG Base Excess 5.7 Oxygen Given ROOM AIR Sodium (135-145) mmol/L Potassium (3.3-5.1) mmol/L Chloride (96-108) mmol/L Carbon Dioxide (22-29) mmol/L Anion Gap (12-20) BUN (9-16) mg/dL Creatinine (0.5-1.4) mg/dL Estim Creat Clear Calc Estimated GFR Random Glucose (60-115) mg/dL Lactic Acid (0.5-2.0) mmol/L Lactic Acid Fup @ 2Hr 2.1 H* (0.5-2.0) mmol/L Calcium (8.4-10.2) mg/dL Magnesium (1.6-2.6) mg/dL Total Bilirubin (0.0-1.0) mg/dL Direct Bilirubin (0.0-0.5) mg/dL AST (5-31) U/L ALT (0-31) U/L Alkaline Phosphatase (39-117) U/L Total Protein (6.5-8.0) g/dL Albumin (3.5-5.0) g/dL Procalcitonin ng/mL COVID-19 (GEM) (Negative) COVID-19 Clin Com 07/13/20 Range/Units 20:42 WBC (4.8-10.8) X10*3/uL RBC (4.20-5.50) X10*6/uL Hgb (12.0-16.0) g/dl Hct (37-47) % MCV (80-98) fL MCH (27.0-33.0) pg MCHC (31.0-35.0) g/dl RDW (11.0-16.0) % Plt Count (160-400) X10*3/uL MPV (9.4-12.3) fL Immature Gran % (Auto) (0.0-0.4) % Neut % (Auto) (45-73) % Lymph % (Auto) (20-40) % Foard % (Auto) (2-11) % Eos % (Auto) (0-4) % Baso % (Auto) (0-2) % Lymph # (Auto) (1.2-4.9) X10*3/uL Foard # (Auto) (0.1-1.2) X10*3/uL Eos # (Auto) (0.0-0.4) X10*3/uL Baso # (Auto) (0.0-0.2) X10*3/uL Abs Immat Gran (auto) (0.00-0.03) X10*3/uL Absolute Neuts (auto) (2.0-8.3) X10*3/uL Absolute Nucleated RBC (0.0-0.012) X10*3/uL Nucleated RBC % (auto) (0.0-0.2) /100WBC Smear Tech's Comments D-Dimer NG/ML Hold Blue Top ABG pH (7.35-7.45) ABG pCO2 (32-45) mmHg ABG pO2 (83-108) mmHg ABG HCO3 (22-26) mmol/L ABG O2 Saturation % ABG Base Excess Oxygen Given 7 L Sodium (135-145) mmol/L Potassium (3.3-5.1) mmol/L Chloride (96-108) mmol/L Carbon Dioxide (22-29) mmol/L Anion Gap (12-20) BUN (9-16) mg/dL Creatinine (0.5-1.4) mg/dL Estim Creat Clear Calc Estimated GFR Random Glucose (60-115) mg/dL Lactic Acid (0.5-2.0) mmol/L Lactic Acid Fup @ 2Hr (0.5-2.0) mmol/L Calcium (8.4-10.2) mg/dL Magnesium (1.6-2.6) mg/dL Total Bilirubin (0.0-1.0) mg/dL Direct Bilirubin (0.0-0.5) mg/dL AST (5-31) U/L ALT (0-31) U/L Alkaline Phosphatase (39-117) U/L Total Protein (6.5-8.0) g/dL Albumin (3.5-5.0) g/dL Procalcitonin ng/mL COVID-19 (GEM) (Negative) COVID-19 Clin Com ECG Data Attestation: I personally reviewed and interpreted this ECG as follows: ECG interpretation date: 07/13/20 ECG interpretation time: 16:29 Interpretation: sinus tachycardia, HR 120 bpm, normal IN interval, normal QTc, no ST segment elevations Scores Wells PE Other diagnosis less likely than PE: 3 Heart rate > 100 p/min: 1.5 Previous DVT or PE: 1.5 Score: 6.0 2-tier Risk: likely risk (17-53%) 3-tier Risk: high risk (78.4%) Critical Care Time Critical Care Time Critical Care Time: Yes Total Critical Care Time: 70 Attestation: I attest to critical care time caring for this patient with life threatening hypoxic respiratory failure; requiring frequent bedside provider reassessments and multilple treatment modalities for status asthmaticus. Discharge Plan Discharge Clinical Impression: Acute respiratory failure with hypoxia and hypercapnia Asthma with status asthmaticus in adult Qualifiers: Asthma severity: unspecified severity Asthma persistence: unspecified Qualified Code(s): J45.902 - Unspecified asthma with status asthmaticus Patient Disposition: Admitted As Inpatient
[2020-07-13] MEDS: methylPREDNISolone Sod Succ/PF 125 MG/2 ML VIAL 80 MG IVPUSH (15:34)
[2020-07-13] MEDS: Magnesium Sulfate/H2O 2 GM/50 ML PIGGYBACK IV (15:34)
[2020-07-13] MEDS: Albuterol Sulfate (0.083%) 2.5 MG/3 ML VIAL.NEB 10 MG INHALE ×2 (15:48→17:21)
--- NOTE | 2020-07-13 15:55 | PC.NURSE ---
s/p mag and solumedrol episode of tachycardia in the 160s and increase sob. pt reported itching all over body. pt started on 1 hour long treatment. additional iv placed 20g r lower outer arm. pt educated to tripod on table. provider and rt at bedside. pt now on cellphone color appears to be better and o2 sat remains around 90% on treatment.
[2020-07-13 16:02] LABS: Basophils Percent Auto 0.3 % (0-2); Eosinophils Absolute Auto 0.9 X10*3/uL (0.0-0.4); Eosinophils Percent Auto 8.8 % (0-4); Hemoglobin 18.2 g/dl (12.0-16.0); Imm Gran Abs Auto 0.01 X10*3/uL (0.00-0.03); Imm Gran Pct Auto 0.1 % (0.0-0.4); Lymphocytes Absolute Auto 5.3 X10*3/uL (1.2-4.9); MANUAL DIFF FLAG SCAN; Mean Corpuscular HGB Conc 32.2 g/dl (31.0-35.0); Mean Corpuscular Hemoglobin 29.2 pg (27.0-33.0); Mean Corpuscular Volume 90.7 fL (80-98); Mean Platelet Volume 10.2 fL (9.4-12.3); Monocytes Absolute Auto 0.7 X10*3/uL (0.1-1.2); Monocytes Percent Auto 6.7 % (2-11); Neutrophils Absolute Auto 2.8 X10*3/uL (2.0-8.3); Neutrophils Percent Auto 29.1 % (45-73); Platelet Count 386 X10*3/uL (160-400); Red Blood Count 6.24 X10*6/uL (4.20-5.50); Red Cell Distribution Width 12.2 % (11.0-16.0); SCAN SMEAR FLAG 1; White Blood Count 9.7 X10*3/uL (4.8-10.8)
[2020-07-13 16:07] LABS: Hematocrit 56.6 % (37-47)
[2020-07-13] MEDS: ondansetron HCL 4 MG/2 ML VIAL IVPUSH (16:08)
[2020-07-13] MEDS: cefTRIAXone sodium 1 GM in 0.9 % Sodium Chloride 50 ML IV (16:08)
[2020-07-13 16:17] LABS: COVID-19 Test Negative (Negative)
[2020-07-13 16:26] LABS: SLIDE REVIEW VERIFIED
[2020-07-13] MEDS: 0.9 % Sodium Chloride 1,000 ML 999 ML IVCONT ×2 (16:30→18:29)
--- NOTE | 2020-07-13 16:30 | ECG_ITS ---
Test Reason : TACHY Blood Pressure : / mmHG Vent. Rate : 120 BPM Atrial Rate : 120 BPM P-R Int : 130 ms QRS Dur : 078 ms QT Int : 336 ms P-R-T Axes : 077 090 049 degrees QTc Int : 474 ms Sinus tachycardia Biatrial enlargement Rightward axis Abnormal ECG When compared with ECG of 24-JUN-2020 00:14, No significant change was found Referred By: Saumya Matson Electronically Signed By:MARIBEL MEJÍA MD
[2020-07-13 16:37] LABS: Alanine Aminotransferase 12 U/L (0-31); Albumin Level 3.9 g/dL (3.5-5.0); Alkaline Phosphatase 75 U/L (39-117); Anion Gap 15 (12-20); Aspartate Amino Transferase 25 U/L (5-31); Bilirubin Direct 0.2 mg/dL (0.0-0.5); Bilirubin Total 0.3 mg/dL (0.0-1.0); Blood Urea Nitrogen 8 mg/dL (9-16); Calcium 9.2 mg/dL (8.4-10.2); Carbon Dioxide 33 mmol/L (22-29); Chloride 99 mmol/L (96-108); Estimated Glomerular Filt Rate > 60; Glucose Random 148 mg/dL (60-115); Lactic Acid 3.3 mmol/L (0.5-2.0); Magnesium 3.1 mg/dL (1.6-2.6); Potassium 5.1 mmol/L (3.3-5.1); Sodium 142 mmol/L (135-145); Total Protein 7.6 g/dL (6.5-8.0)
[2020-07-13 16:50] LABS: Procalcitonin 0.04 ng/mL
[2020-07-13] MEDS: Azithromycin 500 MG in 0.9 % Sodium Chloride 250 ML 125 MG IV (17:17)
[2020-07-13 17:56] LABS: Reflex Lactate? Lactic Acid Added
[2020-07-13 18:28] LABS: Pt Ventilation O2% ROOM AIR
[2020-07-13 18:30] LABS: Base Excess ABG 5.7; HCO3 ABG 33 mmol/L (22-26); PO2 ABG 57 mmHg (83-108); pH ABG 7.34 (7.35-7.45)
[2020-07-13 18:32] LABS: ABG PCO2 60 mmHg (32-45)
--- NOTE | 2020-07-13 18:32 | PC.NURSE ---
pt refusing admission at this time. plan for d dimer and ? cta pt aware of plan of care and agreeable at this time
[2020-07-13 18:47] LABS: D Dimer 315 NG/ML
[2020-07-13 19:02] LABS: ~Lactic Acid-LAB USE ONLY 2.1 mmol/L (0.5-2.0)
[2020-07-13 20:33] LABS: Reflex Lactate? 2 Y
[2020-07-13] MEDS: Albuterol/Iprat 2.5/0.5MG 3 ML AMPUL.NEB INHALE (20:33)
[2020-07-13 20:51] LABS: Pt Ventilation O2% 7 L
[2020-07-13 20:56] LABS: pH ABG 7.34 (7.35-7.45)
[2020-07-13 20:57] LABS: ABG PCO2 49 mmHg (32-45); Base Excess ABG 0.3; HCO3 ABG 26 mmol/L (22-26); PO2 ABG 112 mmHg (83-108)
[2020-07-13 21:43] LABS: HCG Quantitative < 2 mIU/mL
[2020-07-13] MEDS: iohexoL 350 MG/ML 100 ML INFUS..BTL IV (22:06)
[2020-07-13 23:23] LABS: ~Lactic Acid-LAB USE ONLY 6.9 mmol/L (0.5-2.0)
[2020-07-14] VITALS: BP 102/42; PULSE 103; RESP 13; O2SAT 95
[2020-07-14 00:55] LABS: D Dimer 588 NG/ML
[2020-07-14 01:14] LABS: C Reactive Protein 3.31 mg/dL (< or = 0.50); Lactate Dehydrogenase 201 U/L (122-220)
[2020-07-14] MEDS: Azithromycin 500 MG in 0.9 % Sodium Chloride 250 ML 125 MG IV (01:30)
[2020-07-14] MEDS: cefTRIAXone sodium 1 GM in 0.9 % Sodium Chloride 50 ML IV (01:30)
[2020-07-14 01:36] LABS: Ferritin 42 ng/mL (10-122)
[2020-07-14 02:00] VITALS: BP 105/47; PULSE 112; RESP 12; O2SAT 95
--- NOTE | 2020-07-14 02:27 | PC.NURSE ---
PT IS REFUSING TO STAY AND WANTS TO SIGN OUT AMA. DR. MELONIE CASTANEDA.
--- NOTE | 2020-07-14 02:28 | PC.NURSE ---
PT MEDICATED PER EMAR AND AWAITING FOR ANTIBIOTICS TO INFUSE. PT RESTING QUIETLY IN NAD.
--- NOTE | 2020-07-14 02:38 | PC.NURSE ---
PA IN ROOM TRYING TO CONVINCE PT TO STAY AND THE RISKS OF LEAVEING AMA. PT VERBALIZED U/S OF RISKS OF AMA.
--- NOTE | 2020-07-14 03:19 | PC.NURSE ---
HOSPITALIST IN ROOM SPEAKING WITH PT REGARDING SIGNING OUT AMA.
[2020-07-14 04:20] VITALS: BP 94/53; PULSE 105; RESP 16; O2SAT 98
--- NOTE | 2020-07-14 04:34 | PC.NURSE ---
PT DECIDED TO STAY TO BE ADMITTED. HOSPITALIST AWARE. PT SLEEPING WAKES TO VERBAL STIMULI, RESPIRATIONS EASY, N/L. SKIN W/D. ANTIBIOTICS INFUSED W/O DIFFICULTY. PT ON 5L NC WITH PO 95%. PT ON MONITOR. NS UP AND RUNNING W/O SITE INTACT. CALLING REPORT FOR FLOOR ADMISSION.
--- NOTE | 2020-07-14 05:22 | PC.NURSE ---
PT RESTING IN STRETCHER IN NAD, PT WAKES TO VERBAL STIMULI, RESPIRATIONS EASY, N/L. SKIN W/D. PT AWAITING FOR ADMISSION. PT REMAINS ON 5L NC WITH PO 95%. VS OBTAINED. WILL CONTINUE TO MONITOR PT.
[2020-07-14 06:00] VITALS: RESP 18; O2SAT 98
--- NOTE | 2020-07-14 06:01 | PM.IMHP ---
History of Present Illness Date of Service: 07/14/20 Chief Complaint: Shortness of breath -year-old female with past medical history of asthma and DVT on Xarelto noncompliant, IV drug abuse, presents to the hospital with complaints of sob, cough and wheezing. Of note patient has recurrent hospitalization for poorly controlled asthma exacerbation. Patient was discharged from the hospital on 06/27, and returns today stating that her symptoms initially improved but have worsened over the past 1 week. Her boyfriend has been sick with COVID and was in the hospital for 2 months. She now lives with her boyfriend in a motel, reports that she quit smoking about 1 week ago, but ran out of her inhalers for the past 1 month and has not had any new inhaler since. She has nausea with no vomiting, no abdominal pain, diarrhea or constipation, no urinary symptoms and no lower extremity edema. On arrival to the ED patient was hypoxic with an O2 of 75%. She is also tachycardic with a heart rate of 168, respiratory rate of 14, blood pressure 109/63, Labs are significant for WBC count of 9.7, hemoglobin of 18.2, VBG significant for pH of 7.34, CO2 of 49, lactic acid that was initially 3.3, went down to 2.1, then increase to 6.9 after breathing treatment, CRP of 3.31, LDH of 2 wound 1, procalcitonin of 0.1, COVID-[address] angiogram shows with denser Jalil bronchioles airspace disease in the posterior aspect of the left upper lobe and superior segment of the right lower lobe. Pmhx: asthma: DVT, asthma, anxiety, depression, PTSD, heroin abuse which she uses less frequently now surgical hx: denies Family hx: foster care, unknown Social history: uses cigrattes sporadilcally per pt, denies marij[place]a. denies IV drug abuse but uses heroin by sniffing , denies marijuana use Review of Systems Review of Systems: Yes all other systems are reviewed and are negative [facility] Medical History Asthma DVT (deep venous thrombosis) Social History (Updated 06/23/20 @ 23:05 by Kaylee Ga DO) Housing: Homeless Alcohol intake: never Smoking Status: Current some day smoker Cigarettes Per Day: 2 Use of substances other than those prescribed or required for medical reasons: Yes Substance Use Type: IV Drugs Advance Directives: No Advance Directives Information Provided: Yes service: No Meds Allergies Allergy/AdvReac Type Severity Reaction Status Date / Time No Known Allergies Allergy Verified 05/17/20 12:00 [No Known Allergies*] Active Medications: Current Medications Generic Name Dose Route Start Last Admin Trade Name Freq PRN Reason Stop Dose Admin Ceftriaxone Sodium 1 gm/ 50 mls @ 100 mls/hr 07/14/20 00:50 07/14/20 02:28 Sodium Chloride IV Infused Q24H JARRETT Infusion Azithromycin 500 mg/ Sodium 250 mls @ 125 mls/hr 07/14/20 00:50 07/14/20 03:53 Chloride IV Infused Q24H JARRETT Infusion Pharmacy Consult 1 each 07/13/20 20:56 Consult Rx Perform Med Rec MISCELLANE ONCE PRN Consult order Home Medications Medication Instructions Recorded Confirmed Last Taken Type albuterol sulfate [ProAir HFA] 2 puff INHALATION Q4H PRN 07/13/20 07/13/20 Unknown History rivaroxaban [Xarelto] 20 mg PO QPM 07/13/20 07/13/20 Unknown History Physical Exam Vital Signs and Narrative: Vital Signs: Last Vital Signs Temp 98.6 F 07/13/20 15:20 Pulse 105 H 07/14/20 04:20 Resp 16 07/14/20 04:20 BP 94/53 L 07/14/20 04:20 Pulse Ox 98 07/14/20 04:20 Body Mass Index 20.1 Const: Other: appears ill General: cooperative Orientation/consciousness: patient oriented x3 Eyes: General: appearance normal, both eyes and all related structures Resp: Effort & Inspection: normal respiratory effort and able to speak in complete sentences Cardio: Rate: regular rate Rhythm: regular rhythm GI: Palpation (GI): Soft to palpation Auscultation: normal bowel sounds Skin: General skin exam: no rashes or lesions noted Neuro: General: patient oriented x3 Cognition (Neuro): normal cognition Extrem: General: Yes normal to inspection and Yes no pedal edema Results Labs CBC and Chem 7: 07/13/20 15:52 07/13/20 15:52 Labs: Laboratory Results - last 24 hr 07/13/20 07/13/20 07/13/20 15:52 15:52 15:52 MCV 90.7 MCH 29.2 MCHC 32.2 RDW 12.2 Plt Count 386 D MPV 10.2 Immature Gran % (Auto) 0.1 Neut % (Auto) 29.1 L Lymph % (Auto) 55.0 H [place] % (Auto) 6.7 Eos % (Auto) 8.8 H Baso % (Auto) 0.3 Lymph # (Auto) 5.3 H [place] # (Auto) 0.7 Eos # (Auto) 0.9 H Baso # (Auto) 0.0 Abs Immat Gran (auto) 0.01 Absolute Neuts (auto) 2.8 Absolute Nucleated RBC 0.000 Nucleated RBC % (auto) 0.0 Smear Tech's Comments VERIFIED D-Dimer Hold Blue Top Cancelled ABG pH ABG pCO2 ABG pO2 ABG HCO3 ABG O2 Saturation ABG Base Excess Oxygen Given Anion Gap 15 Estim Creat Clear Calc 96.0 Estimated GFR > 60 Random Glucose 148 H Lactic Acid Lactic Acid Fup @ 2Hr Lactic Acid Fup @ 4Hr Calcium 9.2 Magnesium 3.1 H Ferritin Total Bilirubin 0.3 Direct Bilirubin 0.2 AST 25 ALT 12 Alkaline Phosphatase 75 Lactate Dehydrogenase C-Reactive Protein Total Protein 7.6 Albumin 3.9 Procalcitonin Beta HCG, Quant < 2 COVID-19 (GEM) COVID-19 Clin Com 07/13/20 07/13/20 07/13/20 15:52 15:52 15:52 MCV MCH MCHC RDW Plt Count MPV Immature Gran % (Auto) Neut % (Auto) Lymph % (Auto) [place] % (Auto) Eos % (Auto) Baso % (Auto) Lymph # (Auto) [place] # (Auto) Eos # (Auto) Baso # (Auto) Abs Immat Gran (auto) Absolute Neuts (auto) Absolute Nucleated RBC Nucleated RBC % (auto) Smear Tech's Comments D-Dimer Hold Blue Top ABG pH ABG pCO2 ABG pO2 ABG HCO3 ABG O2 Saturation ABG Base Excess Oxygen Given Anion Gap Estim Creat Clear Calc Estimated GFR Random Glucose Lactic Acid 3.3 H* Lactic Acid Fup @ 2Hr Lactic Acid Fup @ 4Hr Calcium Magnesium Ferritin Total Bilirubin Direct Bilirubin AST ALT Alkaline Phosphatase Lactate Dehydrogenase C-Reactive Protein Total Protein Albumin Procalcitonin 0.04 Beta HCG, Quant COVID-19 (GEM) Negative [employer] See Note 07/13/20 07/13/20 07/13/20 18:20 18:29 18:29 MCV MCH MCHC RDW Plt Count MPV Immature Gran % (Auto) Neut % (Auto) Lymph % (Auto) [place] % (Auto) Eos % (Auto) Baso % (Auto) Lymph # (Auto) [place] # (Auto) Eos # (Auto) Baso # (Auto) Abs Immat Gran (auto) Absolute Neuts (auto) Absolute Nucleated RBC Nucleated RBC % (auto) Smear Tech's Comments D-Dimer 315 Hold Blue Top ABG pH 7.34 L ABG pCO2 60 H* ABG pO2 57 L ABG HCO3 33 H ABG O2 Saturation 87.0 ABG Base Excess 5.7 Oxygen Given ROOM AIR Anion Gap Estim Creat Clear Calc Estimated GFR Random Glucose Lactic Acid Lactic Acid Fup @ 2Hr 2.1 H* Lactic Acid Fup @ 4Hr Calcium Magnesium Ferritin Total Bilirubin Direct Bilirubin AST ALT Alkaline Phosphatase Lactate Dehydrogenase C-Reactive Protein Total Protein Albumin Procalcitonin Beta HCG, Quant COVID-19 (GEM) [employer] 07/13/20 07/13/20 07/14/20 20:42 22:54 00:31 MCV MCH MCHC RDW Plt Count MPV Immature Gran % (Auto) Neut % (Auto) Lymph % (Auto) [place] % (Auto) Eos % (Auto) Baso % (Auto) Lymph # (Auto) [place] # (Auto) Eos # (Auto) Baso # (Auto) Abs Immat Gran (auto) Absolute Neuts (auto) Absolute Nucleated RBC Nucleated RBC % (auto) Smear Tech's Comments D-Dimer Hold Blue Top ABG pH 7.34 L ABG pCO2 49 H ABG pO2 112 H ABG HCO3 26 ABG O2 Saturation 98.0 ABG Base Excess 0.3 Oxygen Given 7 L Anion Gap Estim Creat Clear Calc Estimated GFR Random Glucose Lactic Acid Lactic Acid Fup @ 2Hr Lactic Acid Fup @ 4Hr 6.9 H* Calcium Magnesium Ferritin Total Bilirubin Direct Bilirubin AST ALT Alkaline Phosphatase Lactate Dehydrogenase 201 C-Reactive Protein 3.31 H Total Protein Albumin Procalcitonin Beta HCG, Quant COVID-19 (GEM) [employer] 07/14/20 07/14/20 07/14/20 00:31 00:31 00:31 MCV MCH MCHC RDW Plt Count MPV Immature Gran % (Auto) Neut % (Auto) Lymph % (Auto) [place] % (Auto) Eos % (Auto) Baso % (Auto) Lymph # (Auto) [place] # (Auto) Eos # (Auto) Baso # (Auto) Abs Immat Gran (auto) Absolute Neuts (auto) Absolute Nucleated RBC Nucleated RBC % (auto) Smear Tech's Comments D-Dimer 588 Hold Blue Top ABG pH ABG pCO2 ABG pO2 ABG HCO3 ABG O2 Saturation ABG Base Excess Oxygen Given Anion Gap Estim Creat Clear Calc Estimated GFR Random Glucose Lactic Acid Lactic Acid Fup @ 2Hr Lactic Acid Fup @ 4Hr Calcium Magnesium Ferritin 42 Total Bilirubin Direct Bilirubin AST ALT Alkaline Phosphatase Lactate Dehydrogenase C-Reactive Protein Total Protein Albumin Procalcitonin 0.10 Beta HCG, Quant COVID-19 (GEM) COVID-19 Clin Com Imaging Radiologist's Impressions: Impressions Chest X-Ray 07/13/20 15:25 IMPRESSION: Bronchopneumonia at the right lung base. Chest CTA 07/13/20 18:55 IMPRESSION: No evidence for central pulmonary emboli. Patchy bilateral airspace disease is seen with denser peribronchial airspace disease in the posterior aspect of the left upper lobe and superior segment right lower lobe. Condition and there is evidence for debris or mucus impacted bronchi bilaterally again more suggestive of infectious etiologies. Clinical correlation recommended VTE: Negative Assessment and Plan (1) Asthma with status asthmaticus in adult: Qualifiers: Asthma persistence: unspecified Asthma severity: unspecified severity Qualified Code(s): J45.902 - Unspecified asthma with status asthmaticus Status: Acute (2) Acute respiratory failure with hypoxia and hypercapnia: Status: Acute (3) Pneumonia: Qualifiers: Laterality: bilateral Lung location: upper lobe of lung Pneumonia type: due to unspecified organism Qualified Code(s): J18.9 - Pneumonia, unspecified organism Status: Acute (4) Substance abuse or dependence: Status: Acute This is a young 20-year-old female with past medical history of poorly controlled asthma presents to the hospital with shortness of breath, cough, and wheezing. Found to have pneumonia on chest CT # acute on chronic hypoxic respiratory failure - patient has history of asthma, currently also has evidence of pneumonia - although her COVID-19 PCR is negative patient has had contact with COVID positive patient, as well as has bilateral infiltrate on CT of chest worrisome for viral infection - at this time will treat her with IV antibiotics as well as dexamethasone 6 mg given her hypoxic respiratory failure - monitor respiratory status # Community acquired pneumonia - COVID-19 PCR negative, CT a they chest shows bilateral infiltrates - will start her on IV antibiotics ceftriaxone azithromycin, - dexamethasone 6 mg IV daily - will monitor for respiratory decompensation - follow cultures # asthma exacerbation - will start on DuoNebs q.i.d., p.r.n. - dexamethasone 6 mg daily - IV antibiotics as above # IV drug abuse - will monitor for withdrawal symptoms - clonidine as well as p.r.n. hydroxyzine for withdrawal # history of DVT - noncompliant with her on anticoagulants - CT angiogram negative for emboli - will resume her home Xarelto DVT prophylaxis: Xarelto
[2020-07-14] MEDS: Lactated Ringers 1,000 ML 100 ML IVCONT (06:48)
--- NOTE | 2020-07-14 06:48 | PC.NURSE ---
LR UP AND RUNNING ON PUMP PER EMAR. MORNING LABS BEING DRAWN AT THIS TIME.
[2020-07-14 07:09] LABS: Lactic Acid 0.7 mmol/L (0.5-2.0)
--- NOTE | 2020-07-14 07:16 | PC.NURSE ---
sleeping and easily woken, skin wpd, reports feeling better ,
[2020-07-14 07:58] LABS: MANUAL DIFF FLAG NO
[2020-07-14 08:08] LABS: Basophils Percent Auto 0.1 % (0-2); Eosinophils Percent Auto 0.2 % (0-4); Hematocrit 37.1 % (37-47); Hemoglobin 11.8 g/dl (12.0-16.0); Imm Gran Abs Auto 0.03 X10*3/uL (0.00-0.03); Imm Gran Pct Auto 0.3 % (0.0-0.4); Lymphocytes Absolute Auto 1.8 X10*3/uL (1.2-4.9); Mean Corpuscular HGB Conc 31.8 g/dl (31.0-35.0); Mean Corpuscular Hemoglobin 28.5 pg (27.0-33.0); Mean Corpuscular Volume 89.6 fL (80-98); Mean Platelet Volume 10.1 fL (9.4-12.3); Monocytes Absolute Auto 0.8 X10*3/uL (0.1-1.2); Monocytes Percent Auto 7.7 % (2-11); Neutrophils Absolute Auto 7.7 X10*3/uL (2.0-8.3); Neutrophils Percent Auto 74.7 % (45-73); Platelet Count 241 X10*3/uL (160-400); Red Blood Count 4.14 X10*6/uL (4.20-5.50); Red Cell Distribution Width 12.1 % (11.0-16.0); White Blood Count 10.4 X10*3/uL (4.8-10.8)
[2020-07-14] MEDS: dexAMETHasone sod phosphate 4 MG/ML VIAL 6 MG IVPUSH (08:45)
[2020-07-14 08:54] LABS: Anion Gap 13 (12-20); Blood Urea Nitrogen 6 mg/dL (9-16); Calcium 7.4 mg/dL (8.4-10.2); Carbon Dioxide 25 mmol/L (22-29); Chloride 105 mmol/L (96-108); Creatinine Clr Calc Pharmacy 132.7; Estimated Glomerular Filt Rate > 60; Glucose Random 79 mg/dL (60-115); Potassium 3.7 mmol/L (3.3-5.1); Sodium 139 mmol/L (135-145)
[2020-07-14 09:15] VITALS: BP 103/59; PULSE 102; RESP 22; TEMP 36.8; O2SAT 96
--- NOTE | 2020-07-14 11:24 | P.PNIM_ITS ---
Subjective Subjective Date of Service: 07/14/20 Interval History: Patient seen and examined at bedside patient was reporting shortness of breath and cough Review of Systems Constitutional: No Fever, No Chills ENT/Mouth: No sore throat, No Rhinorrhea, No Swallowing Difficulty Eyes: No Eye Pain, No Swelling, No Redness Cardiovascular: + Chest Pain, + SOB, No Orthopnea, No Edema Respiratory: + Cough, + Sputum, + Wheezing, + dyspnea Gastrointestinal: No Nausea, No Vomiting, No Diarrhea, No abdominal Pain Genitourinary: No Dysuria, No Urinary Frequency, No Hematuria Musculoskeletal: No joint pain, No Myalgias Skin: + Skin Lesions, No rash Neuro: No Weakness, No Numbness, No Dizziness, No Headache Psych: + Anxiety/Panic, No Depression Heme/Lymph: + Bruising, No Lymphadenopathy Endocrine: No Polyuria, No Polydipsia Physical Exam Vital Signs: Vital Signs: Last Vital Signs Temp 98.2 F 07/14/20 09:15 Pulse 102 H 07/14/20 09:15 Resp 22 H 07/14/20 09:15 BP 103/59 L 07/14/20 09:15 Pulse Ox 96 07/14/20 09:15 Body Mass Index 20.1 Const: General: cooperative Orientation/consciousness: patient oriented x3 Eyes: General: appearance normal, both eyes and all related structures Resp: Effort & Inspection: normal respiratory effort and able to speak in complete sentences Cardio: Rate: regular rate Rhythm: regular rhythm GI: Palpation (GI): Soft to palpation Auscultation: normal bowel sounds Skin: General skin exam: no rashes or lesions noted Neuro: General: patient oriented x3 Cognition (Neuro): normal cognition Extrem: General: Yes normal to inspection and Yes no pedal edema Objective Data Current Medications Generic Name Dose Route Start Last Admin Trade Name Freq PRN Reason Stop Dose Admin Acetaminophen 650 mg 07/14/20 07:17 Acetaminophen 325 Mg Tablet PO Q6H PRN Pain, Mild (Pain Scale 1-3) Albuterol Sulfate 2 puff 07/14/20 07:17 Albuterol Sulfate 90 Mcg 8 Gm Inhaler INHALE Q4H PRN Respiratory Distress Clonidine HCl 0.05 mg 07/14/20 07:17 Clonidine Hcl 0.1 Mg Tablet PO TID PRN withdrawal Protocol Dexamethasone Sodium Phosphate 6 mg 07/14/20 07:17 07/14/20 09:49 Dexamethasone Sod Phosphate 4 Mg/Ml Vial IVPUSH Not Given DAILY JARRETT Docusate Sodium 100 mg 07/14/20 07:17 Docusate Sodium 100 Mg Capsule PO DAILY PRN Constipation Hydroxyzine HCl 25 mg 07/14/20 07:17 Hydroxyzine Hcl 25 Mg Tablet PO Q6H PRN anxiety/restlessness Ceftriaxone Sodium 1 gm/ 50 mls @ 100 mls/hr 07/14/20 00:50 07/14/20 02:28 Sodium Chloride IV Infused Q24H JARRETT Infusion Azithromycin 500 mg/ Sodium 250 mls @ 125 mls/hr 07/14/20 00:50 07/14/20 03:53 Chloride IV Infused Q24H JARRETT Infusion Lactated Ringer's 1,000 mls @ 100 mls/hr 07/14/20 06:15 07/14/20 06:48 Lr IVCONT 100 mls/hr .Q10H JARRETT Administration Ondansetron HCl 4 mg 07/14/20 07:17 Ondansetron Hcl 4 Mg/2 Ml Vial IVPUSH Q8H PRN Nausea and Vomiting Pharmacy Consult 1 each 07/13/20 20:56 Consult Rx Perform Med Rec MISCELLANE ONCE PRN Consult order Rivaroxaban 20 mg 07/14/20 17:00 Rivaroxaban 20 Mg Tablet PO DAILY@1700 JARRETT Sodium Chloride 3 ml 07/14/20 08:00 07/14/20 08:16 0.9 % Sodium Chloride Flush 3 Ml Syringe IVFLUSH Not Given QSHIFT [facility] Labs CBC & Chem 7: 07/14/20 07:37 07/14/20 07:37 Assessment and Plan (1) Asthma with status asthmaticus in adult: Status: Acute (2) Acute respiratory failure with hypoxia and hypercapnia: Status: Acute (3) Pneumonia: Status: Acute (4) Substance abuse or dependence: Status: Acute Assessment and Plan: This is a young 20-year-old female with past medical history of poorly controlled asthma presents to the hospital with shortness of breath, cough, and wheezing. Found to have pneumonia on chest CT Acute on chronic hypoxic respiratory failure COVID-19 PCR is negative patient has had contact with COVID positive patient, as well as has bilateral infiltrate on CT of chest worrisome for viral infection - at this time will treat her with IV antibiotics as well as dexamethasone 6 mg given her hypoxic respiratory failure - monitor respiratory status Community acquired pneumonia COVID-19 PCR negative, CT chest shows bilateral infiltrates Continue ceftriaxone azithromycin, continue dexamethasone 6 mg IV daily follow cultures continue isolation given contact with COVID positive patient Asthma exacerbation continue DuoNebs q.i.d., p.r.n. continue dexamethasone 6 mg daily continue oxygen supplementation IV drug abuse monitor for withdrawal symptoms clonidine as well as p.r.n. hydroxyzine for withdrawal History of DVT noncompliant with her on anticoagulants CT angiogram negative for emboli continue Xarelto DVT prophylaxis: Xarelto
[2020-07-14 12:22] VITALS: O2SAT 93
--- NOTE | 2020-07-14 12:22 | PC.NURSE ---
PT REQUESTED TO LEAVE AMA. DR VALENCIA NOTIFIED AND SPOKE TO PT. RISK OF LEAVING EXPLAINED TO PT. SHE STATED UNDERSTANDING. AND CHOSE TO LEAVE.
--- NOTE | 2020-07-14 14:06 | P.DS_ITS ---
DS: Providers Provider Date of Service: 07/14/20 Date of admission: 07/13/20 23:28 Primary care physician: Lexie Physician DS: Diagnosis Discharge Diagnosis (1) Asthma with status asthmaticus in adult: Status: Acute (2) Acute respiratory failure with hypoxia and hypercapnia: Status: Acute (3) Pneumonia: Status: Acute (4) Substance abuse or dependence: Status: Acute DS: Medications Discharge Medications Home Medications: Home Medications Medication Instructions Recorded Confirmed albuterol sulfate [ProAir HFA] 2 puff INHALATION Q4H PRN 07/13/20 07/13/20 rivaroxaban [Xarelto] 20 mg PO QPM 07/13/20 07/13/20 DS: Summary Hospital Course Hospital Course: 20-year-old female with significant history of IV drug abuse admitted with Pneumonia and acute hypoxic respiratory failure and asthma exacerbation started on IV antibiotic, nebulizer and steroids , cultures were sent, patient was started on oxygen supplementation, patient was requiring oxygen, patient decided to leave against medical advice, explained to patient need for to continue treatment given pneumonia asthma exacerbation and hypoxia, risks explained to patient including worsening breathing and risk of given asthma exacerbation ,pneumonia and low oxygen, patient understands the risk, but still decided to leave against medical advice, patient left against medical advice, Time Spent with Patient Time attestation: Total time spent providing and/or coordinating discharge services: Discharge coordination time: Greater than 30 minutes Physical Exam Vital Signs: Vital Signs: Last Vital Signs Temp 98.2 F 07/14/20 09:15 Pulse 102 H 07/14/20 09:15 Resp 22 H 07/14/20 09:15 BP 103/59 L 07/14/20 09:15 Pulse Ox 93 07/14/20 12:22 Body Mass Index 20.1 DS: Data Data Completed and Pending Labs on day of discharge: Laboratory Results - last 24 hr 07/13/20 07/13/20 07/13/20 15:52 15:52 15:52 WBC 9.7 RBC 6.24 H D Hgb 18.2 H D Hct 56.6 H D MCV 90.7 MCH 29.2 MCHC 32.2 RDW 12.2 Plt Count 386 D MPV 10.2 Immature Gran % (Auto) 0.1 Neut % (Auto) 29.1 L Lymph % (Auto) 55.0 H [place] % (Auto) 6.7 Eos % (Auto) 8.8 H Baso % (Auto) 0.3 Lymph # (Auto) 5.3 H [place] # (Auto) 0.7 Eos # (Auto) 0.9 H Baso # (Auto) 0.0 Abs Immat Gran (auto) 0.01 Absolute Neuts (auto) 2.8 Absolute Nucleated RBC 0.000 Nucleated RBC % (auto) 0.0 Smear Tech's Comments VERIFIED D-Dimer Hold Blue Top Cancelled ABG pH ABG pCO2 ABG pO2 ABG HCO3 ABG O2 Saturation ABG Base Excess Oxygen Given Sodium 142 Potassium 5.1 Chloride 99 Carbon Dioxide 33 H Anion Gap 15 BUN 8 L Creatinine 0.83 Estim Creat Clear Calc 96.0 Estimated GFR > 60 Random Glucose 148 H Lactic Acid Lactic Acid Fup @ 2Hr Lactic Acid Fup @ 4Hr Calcium 9.2 Magnesium 3.1 H Ferritin Total Bilirubin 0.3 Direct Bilirubin 0.2 AST 25 ALT 12 Alkaline Phosphatase 75 Lactate Dehydrogenase C-Reactive Protein Total Protein 7.6 Albumin 3.9 Procalcitonin Beta HCG, Quant < 2 COVID-19 (GEM) [email or web address] 07/13/20 07/13/20 07/13/20 15:52 15:52 15:52 WBC RBC Hgb Hct MCV MCH MCHC RDW Plt Count MPV Immature Gran % (Auto) Neut % (Auto) Lymph % (Auto) [place] % (Auto) Eos % (Auto) Baso % (Auto) Lymph # (Auto) [place] # (Auto) Eos # (Auto) Baso # (Auto) Abs Immat Gran (auto) Absolute Neuts (auto) Absolute Nucleated RBC Nucleated RBC % (auto) Smear Tech's Comments D-Dimer Hold Blue Top ABG pH ABG pCO2 ABG pO2 ABG HCO3 ABG O2 Saturation ABG Base Excess Oxygen Given Sodium Potassium Chloride Carbon Dioxide Anion Gap BUN Creatinine Estim Creat Clear Calc Estimated GFR Random Glucose Lactic Acid 3.3 H* Lactic Acid Fup @ 2Hr Lactic Acid Fup @ 4Hr Calcium Magnesium Ferritin Total Bilirubin Direct Bilirubin AST ALT Alkaline Phosphatase Lactate Dehydrogenase C-Reactive Protein Total Protein Albumin Procalcitonin 0.04 Beta HCG, Quant COVID-19 (GEM) Negative [email or web address] See Note 07/13/20 07/13/20 07/13/20 18:20 18:29 18:29 WBC RBC Hgb Hct MCV MCH MCHC RDW Plt Count MPV Immature Gran % (Auto) Neut % (Auto) Lymph % (Auto) [place] % (Auto) Eos % (Auto) Baso % (Auto) Lymph # (Auto) [place] # (Auto) Eos # (Auto) Baso # (Auto) Abs Immat Gran (auto) Absolute Neuts (auto) Absolute Nucleated RBC Nucleated RBC % (auto) Smear Tech's Comments D-Dimer 315 Hold Blue Top ABG pH 7.34 L ABG pCO2 60 H* ABG pO2 57 L ABG HCO3 33 H ABG O2 Saturation 87.0 ABG Base Excess 5.7 Oxygen Given ROOM AIR Sodium Potassium Chloride Carbon Dioxide Anion Gap BUN Creatinine Estim Creat Clear Calc Estimated GFR Random Glucose Lactic Acid Lactic Acid Fup @ 2Hr 2.1 H* Lactic Acid Fup @ 4Hr Calcium Magnesium Ferritin Total Bilirubin Direct Bilirubin AST ALT Alkaline Phosphatase Lactate Dehydrogenase C-Reactive Protein Total Protein Albumin Procalcitonin Beta HCG, Quant COVID-19 (GEM) [employer] 07/13/20 07/13/20 07/14/20 20:42 22:54 00:31 WBC RBC Hgb Hct MCV MCH MCHC RDW Plt Count MPV Immature Gran % (Auto) Neut % (Auto) Lymph % (Auto) [place] % (Auto) Eos % (Auto) Baso % (Auto) Lymph # (Auto) [place] # (Auto) Eos # (Auto) Baso # (Auto) Abs Immat Gran (auto) Absolute Neuts (auto) Absolute Nucleated RBC Nucleated RBC % (auto) Smear Tech's Comments D-Dimer Hold Blue Top ABG pH 7.34 L ABG pCO2 49 H ABG pO2 112 H ABG HCO3 26 ABG O2 Saturation 98.0 ABG Base Excess 0.3 Oxygen Given 7 L Sodium Potassium Chloride Carbon Dioxide Anion Gap BUN Creatinine Estim Creat Clear Calc Estimated GFR Random Glucose Lactic Acid Lactic Acid Fup @ 2Hr Lactic Acid Fup @ 4Hr 6.9 H* Calcium Magnesium Ferritin Total Bilirubin Direct Bilirubin AST ALT Alkaline Phosphatase Lactate Dehydrogenase 201 C-Reactive Protein 3.31 H Total Protein Albumin Procalcitonin Beta HCG, Quant COVID-19 (GEM) [employer] 07/14/20 07/14/20 07/14/20 00:31 00:31 00:31 WBC RBC Hgb Hct MCV MCH MCHC RDW Plt Count MPV Immature Gran % (Auto) Neut % (Auto) Lymph % (Auto) [place] % (Auto) Eos % (Auto) Baso % (Auto) Lymph # (Auto) [place] # (Auto) Eos # (Auto) Baso # (Auto) Abs Immat Gran (auto) Absolute Neuts (auto) Absolute Nucleated RBC Nucleated RBC % (auto) Smear Tech's Comments D-Dimer 588 Hold Blue Top ABG pH ABG pCO2 ABG pO2 ABG HCO3 ABG O2 Saturation ABG Base Excess Oxygen Given Sodium Potassium Chloride Carbon Dioxide Anion Gap BUN Creatinine Estim Creat Clear Calc Estimated GFR Random Glucose Lactic Acid Lactic Acid Fup @ 2Hr Lactic Acid Fup @ 4Hr Calcium Magnesium Ferritin 42 Total Bilirubin Direct Bilirubin AST ALT Alkaline Phosphatase Lactate Dehydrogenase C-Reactive Protein Total Protein Albumin Procalcitonin 0.10 Beta HCG, Quant COVID-19 (GEM) COVID-19 Clin Com 07/14/20 07/14/20 07/14/20 06:49 07:37 07:37 WBC 10.4 RBC 4.14 L D Hgb 11.8 L D Hct 37.1 D MCV 89.6 MCH 28.5 MCHC 31.8 RDW 12.1 Plt Count 241 D MPV 10.1 Immature Gran % (Auto) 0.3 Neut % (Auto) 74.7 H Lymph % (Auto) 17.0 L [place] % (Auto) 7.7 Eos % (Auto) 0.2 Baso % (Auto) 0.1 Lymph # (Auto) 1.8 [place] # (Auto) 0.8 Eos # (Auto) 0.0 Baso # (Auto) 0.0 Abs Immat Gran (auto) 0.03 Absolute Neuts (auto) 7.7 Absolute Nucleated RBC 0.000 Nucleated RBC % (auto) 0.0 Smear Tech's Comments D-Dimer Hold Blue Top ABG pH ABG pCO2 ABG pO2 ABG HCO3 ABG O2 Saturation ABG Base Excess Oxygen Given Sodium 139 Potassium 3.7 D Chloride 105 Carbon Dioxide 25 Anion Gap 13 BUN 6 L Creatinine 0.60 Estim Creat Clear Calc 132.7 Estimated GFR > 60 Random Glucose 79 D Lactic Acid 0.7 Lactic Acid Fup @ 2Hr Lactic Acid Fup @ 4Hr Calcium 7.4 L D Magnesium Ferritin Total Bilirubin Direct Bilirubin AST ALT Alkaline Phosphatase Lactate Dehydrogenase C-Reactive Protein Total Protein Albumin Procalcitonin Beta HCG, Quant COVID-19 (GEM) COVID-19 Clin Com Discharge Plan Discharge Patient Disposition: Left Against Medical Advice Referrals: Physician,None [Primary Care Provider] - Discharge Medications: No Action Xarelto 20 mg Tablet 20 mg PO QPM RF: 0 albuterol sulfate [ProAir HFA] 90 mcg/actuation Hfa Aerosol Inhaler 2 puff INHALATION Q4H PRN (Reason: Respiratory Distress) RF: 0 Discharge Orders: Discharge Order (Routine); Ordered 07/14/20 Ordered By: Matthew Velazquez Care Plan Goals: see above Health Concerns: see above Plan of Treatment: see above Discharge Date/Time: 07/14/20 12:39
== END 2020-07-14 12:39 | disposition left against medical advice (07) | DRG 141 ==
LOC: HO.ED 15:59 → HO.IMC 07-14 00:53
PROVIDERS: Nurse Practitioner Family; Physician Assistant; Admitting Provider Internal Medicine; Emergency Provider Emergency Medicine Emergency Medical Services; Visit Provider Internal Medicine
DX: J45.902 Unspecified asthma with status asthmaticus (principal); J96.01 Acute respiratory failure with hypoxia; J96.02 Acute respiratory failure with hypercapnia; J18.9 Pneumonia, unspecified organism; F11.10 Opioid abuse, uncomplicated; F17.210 Nicotine dependence, cigarettes, uncomplicated; Z20.822 Contact with and (suspected) exposure to COVID-19; Z71.6 Tobacco abuse counseling; Z86.718 Personal history of other venous thrombosis and embolism; Z91.14 Patient's other noncompliance with medication regimen; Z79.01 Long term (current) use of anticoagulants; Z79.899 Other long term (current) drug therapy
CPT/HCPCS: 36415; 71045; 71275; 80048; 80076; 82728; 82803; 83605; 83615; 83735; 84145; 84702; 85025; 85379; 86140; 87040; 87635; 93005; 94640; 94644; 94645; 96361; 96365; 96366; 96375; 99285; 99291; J0456; J0696; J1100; J2405; J2930; J3475; Q9967

== ENCOUNTER 2020-07-17 13:15 | Inpatient (IN) | payer OTHER, SELFPAY ==
--- NOTE | ~2020-07-17 | XR_ITS ---
EXAMINATION: XR CHEST CLINICAL INFORMATION: Shortness of breath COMPARISON: 07/13/2020 TECHNIQUE: 2 views of the chest were obtained. FINDINGS: Previously seen opacity at the right lung base has resolved. No new focal consolidation or mass. No pleural effusion or pneumothorax. Normal heart size. Regional skeleton intact. XR/XR chest 2V IMPRESSION: Previously seen right lower lobe opacity has resolved. Lungs are now clear.
--- NOTE | ~2020-07-17 | XR_ITS ---
EXAMINATION: XR CHEST CLINICAL INFORMATION: Shortness of breath COMPARISON: Earlier the same day. 07/13/2020. TECHNIQUE: Frontal view of the chest was obtained. FINDINGS: The right base opacity seen on 07/13/2020 has resolved. No focal consolidation or mass. No pleural effusion or pneumothorax. Normal heart size. Regional skeleton intact. XR/XR chest 1V IMPRESSION: Lungs remain clear.
[2020-07-17 13:24] VITALS: BP 120/85; PULSE 120; RESP 18; TEMP 36.5; O2SAT 94; BMI 20.1
--- NOTE | 2020-07-17 15:32 | ECG_ITS ---
Test Reason : ASTHMA Blood Pressure : / mmHG Vent. Rate : 087 BPM Atrial Rate : 087 BPM P-R Int : 118 ms QRS Dur : 078 ms QT Int : 386 ms P-R-T Axes : 068 088 055 degrees QTc Int : 464 ms Normal sinus rhythm with sinus arrhythmia Normal ECG When compared with ECG of 13-JUL-2020 16:31, No significant change was found Referred By: Miguel Hernandez Electronically Signed By:Ceferino Ness
[2020-07-17] MEDS: Albuterol Sulfate (0.083%) 2.5 MG/3 ML VIAL.NEB 10 MG INHALE (15:58)
[2020-07-17 16:01] VITALS: PULSE 95; O2SAT 95
[2020-07-17 16:48] LABS: MANUAL DIFF FLAG NO
[2020-07-17 16:54] LABS: Basophils Percent Auto 0.4 % (0-2); Red Cell Distribution Width 12.3 % (11.0-16.0)
[2020-07-17 16:55] LABS: INTERNATIONAL NORM RATIO 1.1 (0.9-1.1); Prothrombin Time 13.6 SEC (10.8-13.0)
[2020-07-17 16:57] LABS: Partial Thromboplastin Time 39.8 SEC (24.1-38.0)
[2020-07-17 16:59] LABS: Eosinophils Absolute Auto 0.6 X10*3/uL (0.0-0.4); Eosinophils Percent Auto 6.7 % (0-4); Hematocrit 50.3 % (37-47); Hemoglobin 16.9 g/dl (12.0-16.0); Imm Gran Abs Auto 0.03 X10*3/uL (0.00-0.03); Imm Gran Pct Auto 0.3 % (0.0-0.4); Lymphocytes Absolute Auto 2.1 X10*3/uL (1.2-4.9); Lymphocytes Percent Auto 23.4 % (20-40); Mean Corpuscular HGB Conc 33.6 g/dl (31.0-35.0); Mean Corpuscular Hemoglobin 29.2 pg (27.0-33.0); Mean Corpuscular Volume 86.9 fL (80-98); Mean Platelet Volume 9.9 fL (9.4-12.3); Monocytes Absolute Auto 0.5 X10*3/uL (0.1-1.2); Monocytes Percent Auto 5.6 % (2-11); Neutrophils Absolute Auto 5.8 X10*3/uL (2.0-8.3); Neutrophils Percent Auto 63.6 % (45-73); Platelet Count 429 X10*3/uL (160-400); Red Blood Count 5.79 X10*6/uL (4.20-5.50); White Blood Count 9.1 X10*3/uL (4.8-10.8)
[2020-07-17 17:12] LABS: Lactic Acid 0.8 mmol/L (0.5-2.0)
[2020-07-17 17:18] LABS: Alanine Aminotransferase 10 U/L (0-31); Alkaline Phosphatase 73 U/L (39-117); Anion Gap 17 (12-20); Aspartate Amino Transferase 15 U/L (5-31); Bilirubin Total 0.7 mg/dL (0.0-1.0); Blood Urea Nitrogen 9 mg/dL (9-16); Calcium 9.5 mg/dL (8.4-10.2); Carbon Dioxide 24 mmol/L (22-29); Chloride 100 mmol/L (96-108); Creatinine Clr Calc Pharmacy 103.4; Estimated Glomerular Filt Rate > 60; Glucose Random 73 mg/dL (60-115); Potassium 4.3 mmol/L (3.3-5.1); Sodium 137 mmol/L (135-145); Total Protein 7.6 g/dL (6.5-8.0)
[2020-07-17 17:22] LABS: Troponin-I High Sensitivity < 3.5 ng/L (<3.5-17.0)
[2020-07-17 17:47] LABS: COVID-19 Test Negative (Negative)
--- NOTE | 2020-07-17 18:19 | ED_ITS ---
HPI - Asthma General Chief Complaint: Asthma Stated Complaint: ASTHMA Time Seen by Provider: 07/17/20 15:31 Source: patient Mode of arrival: ambulatory Limitations: no limitations History of Present Illness HPI Narrative: With prior medical history significant for IVDA use, prior DVT on Xarelto, asthma, anxiety, PTSD, depression, who presents today with complaint of cough and shortness of breath with worsening wheezing. States she was recently admitted here and left against medical advice 2 days ago states she left because she wanted a 10 to her boyfriend who was also discharged from the hospital however she has been feeling worse with worsening wheezing and cough and shortness of breath. States she has been out of her inhaler. MD complaint: asthma attack and shortness of breath Onset (ago): day(s) Severity: severe Related Data Home Medications Medication Instructions Recorded Confirmed albuterol sulfate [ProAir HFA] 2 puff INHALATION Q4H PRN 07/13/20 07/17/20 rivaroxaban [Xarelto] 20 mg PO QPM 07/13/20 07/17/20 Allergies Allergy/AdvReac Type Severity Reaction Status Date / Time No Known Allergies Allergy Verified 07/17/20 13:24 [No Known Allergies*] Review of Systems Review of Systems: Constitutional: No Weight loss, No Fever, No Chills, No Night Sweats, No Fatigue, No Malaise ENT/Mouth: No Hearing loss, No Ear Pain, No Nasal Congestion, No Sinus Pain, No Hoarseness, No sore throat, No Rhinorrhea, No Swallowing Difficulty Eyes: No Eye Pain, No Swelling, No Redness, No Foreign Body, No Discharge, No Vision Changes Cardiovascular: No Chest Pain, No SOB, No Dyspnea on Exertion, No Orthopnea, No Edema, No Palpitations Respiratory: + Cough, + Sputum, + Wheezing, No Dyspnea Gastrointestinal: No Nausea, No Vomiting, No Diarrhea, No Constipation, No abdominal Pain, No Hematochezia, No Melena Genitourinary: no irregular bleeding, No Dysuria, No Urinary Frequency, No Hematuria, No Urinary Incontinence, No Urgency, No Flank Pain, No Urinary Flow Changes, No Hesitancy Musculoskeletal: No joint pain, No Myalgias, No Joint Swelling Skin: No Skin Lesions, No rash Neuro: No Weakness, No Numbness, No Paresthesias, No Loss of Consciousness, No Dizziness, No Headache Psych: No Anxiety/Panic, No Depression, No SI/HI/AH/VH, No Social Issues Heme/Lymph: No Bruising, No Bleeding,No Lymphadenopathy Endocrine: No Polyuria, No Polydipsia, No Temperature Intolerance Yes all ot her systems are reviewed and are negative PMFSH Past Medical History Medical History Asthma DVT (deep venous thrombosis) Social History Social History (Updated 06/23/20 @ 23:05 by Kaylee Ga DO) Housing: Homeless Alcohol intake: never Smoking Status: Former smoker Cigarettes Per Day: 2 Substance Use Type: Marijuana Advance Directives: No Advance Directives Information Provided: No service: No Physical Exam Vital Signs: Vital Signs: Last Vital Signs Temp 97.7 F 07/17/20 13:24 Pulse 95 07/17/20 16:01 Resp 18 07/17/20 13:24 BP 120/85 07/17/20 13:24 Pulse Ox 94 07/17/20 13:24 Body Mass Index 20.1 Reviewed Const: General: cooperative and healthy appearing; No acute distress or intoxicated appearing Nutritional Appearance: average body habitus Orientation/consciousness: patient oriented x3 HENMT: Head: Yes normal to inspection Ears: hearing grossly normal bilaterally Eyes: General: appearance normal, both eyes and all related structures Visual Shaw: normal visual shaw by confrontation Neck: Neck: Yes normal visual inspection, No positive Brudzinski's sign, No positive Kernig's sign and No tender Thyroid: Thyroid normal Chest: Chest palpation & inspection: normal inspection of the chest Resp: Effort & Inspection: labored (Mildly labored/diminished) Auscultation: rhonchi and diminished lung sounds Cardio: Jugular venous distension: no JVD Rate: regular rate Rhythm: regular rhythm Heart sounds: S1 normal heart sound present and S2 normal hear t sound present GI: Inspection: Yes normal to inspection Percussion: Yes normal to percussion Auscultation: normal bowel sounds : General: Yes no CVA tenderness Back/Spine/Pelvis: Back: no CVA tenderness Skin: General skin exam: no rashes or lesions noted Neuro: General: patient oriented x3 Extrem: General: Yes normal to inspection Course Course Course Narrative: 20-year-old female with significant history as noted above recent hospitalization for asthma exacerbation with hypoxic respiratory failure/hypercapnia rib presenting with worsening shortness of breath/cough and wheezing out of her medication states his taylor of left against medical advice feels like she needs stay. Workup overall reassuring given hour long nebulizer IV fluids as well as steroids and marginal improvement. Will give her 2nd neb. COVID-19 negative. Will require admission for further monitoring and treatment. Case discussed with hospitalist agreeable plan. Case accepted to service by hospitalist Domenica [facility] - Asthma Differential Diagnosis Differential diagnosis: Likely Acute exacerbation, Acute asthmatic bronchitis and Pneumonia; Unlikely PE, COPD exacerbation, Pulmonary edema systolic, Pulmonary edema dystolic, ARDS and Pneumothorax Medical Records Attestation: I reviewed the patient's medical records. Lab Data Attestation: I reviewed the patient's lab results. Result diagrams: 07/17/20 16:38 07/17/20 16:38 Labs: Lab Results 07/17/20 07/17/20 07/17/20 Range/Units 16:38 16:38 16:38 WBC 9.1 (4.8-10.8) X10*3/uL RBC 5.79 H D (4.20-5.50) X10*6/uL Hgb 16.9 H D (12.0-16.0) g/dl Hct 50.3 H D (37-47) % MCV 86.9 (80-98) fL MCH 29.2 (27.0-33.0) pg MCHC 33.6 (31.0-35.0) g/dl RDW 12.3 (11.0-16.0) % Plt Count 429 H D (160-400) X10*3/uL MPV 9.9 (9.4-12.3) fL Immature Gran % (Auto) 0.3 (0.0-0.4) % Neut % (Auto) 63.6 (45-73) % Lymph % (Auto) 23.4 (20-40) % [place] % (Auto) 5.6 (2-11) % Eos % (Auto) 6.7 H (0-4) % Baso % (Auto) 0.4 (0-2) % Lymph # (Auto) 2.1 (1.2-4.9) X10*3/uL [place] # (Auto) 0.5 (0.1-1.2) X10*3/uL Eos # (Auto) 0.6 H (0.0-0.4) X10*3/uL Baso # (Auto) 0.0 (0.0-0.2) X10*3/uL Abs Immat Gran (auto) 0.03 (0.00-0.03) X10*3/uL Absolute Neuts (auto) 5.8 (2.0-8.3) X10*3/uL Absolute Nucleated RBC 0.000 (0.0-0.012) X10*3/uL Nucleated RBC % (auto) 0.0 (0.0-0.2) /100WBC PT 13.6 H (10.8-13.0) SEC INR 1.1 (0.9-1.1) APTT 39.8 H (24.1-38.0) SEC Sodium (135-145) mmol/L Potassium (3.3-5.1) mmol/L Chloride (96-108) mmol/L Carbon Dioxide (22-29) mmol/L Anion Gap (12-20) BUN (9-16) mg/dL Creatinine (0.5-1.4) mg/dL Estim Creat Clear Calc Estimated GFR Random Glucose (60-115) mg/dL Lactic Acid (0.5-2.0) mmol/L Calcium (8.4-10.2) mg/dL Total Bilirubin (0.0-1.0) mg/dL AST (5-31) U/L ALT (0-31) U/L Alkaline Phosphatase (39-117) U/L Troponin I High Sens (<3.5-17.0) ng/L Total Protein (6.5-8.0) g/dL Albumin (3.5-5.0) g/dL COVID-19 (GME) Negative (Negative) COVID-19 Clin Com See Note 07/17/20 07/17/20 07/17/20 Range/Units 16:38 16:38 16:38 WBC (4.8-10.8) X10*3/uL RBC (4.20-5.50) X10*6/uL Hgb (12.0-16.0) g/dl Hct (37-47) % MCV (80-98) fL MCH (27.0-33.0) pg MCHC (31.0-35.0) g/dl RDW (11.0-16.0) % Plt Count (160-400) X10*3/uL MPV (9.4-12.3) fL Immature Gran % (Auto) (0.0-0.4) % Neut % (Auto) (45-73) % Lymph % (Auto) (20-40) % [place] % (Auto) (2-11) % Eos % (Auto) (0-4) % Baso % (Auto) (0-2) % Lymph # (Auto) (1.2-4.9) X10*3/uL [place] # (Auto) (0.1-1.2) X10*3/uL Eos # (Auto) (0.0-0.4) X10*3/uL Baso # (Auto) (0.0-0.2) X10*3/uL Abs Immat Gran (auto) (0.00-0.03) X10*3/uL Absolute Neuts (auto) (2.0-8.3) X10*3/uL Absolute Nucleated RBC (0.0-0.012) X10*3/uL Nucleated RBC % (auto) (0.0-0.2) /100WBC PT (10.8-13.0) SEC INR (0.9-1.1) APTT (24.1-38.0) SEC Sodium 137 (135-145) mmol/L Potassium 4.3 (3.3-5.1) mmol/L Chloride 100 (96-108) mmol/L Carbon Dioxide 24 (22-29) mmol/L Anion Gap 17 (12-20) BUN 9 (9-16) mg/dL Creatinine 0.77 (0.5-1.4) mg/dL Estim Creat Clear Calc 103.4 Estimated GFR > 60 Random Glucose 73 (60-115) mg/dL Lactic Acid 0.8 (0.5-2.0) mmol/L Calcium 9.5 D (8.4-10.2) mg/dL Total Bilirubin 0.7 (0.0-1.0) mg/dL AST 15 (5-31) U/L ALT 10 (0-31) U/L Alkaline Phosphatase 73 (39-117) U/L Troponin I High Sens < 3.5 (<3.5-17.0) ng/L Total Protein 7.6 (6.5-8.0) g/dL Albumin 4.0 (3.5-5.0) g/dL COVID-19 (GEM) (Negative) COVID-19 Clin Com Imaging Data Chest x-ray: Radiologist's impression: [address] [id number] ReportSigned Patient: Neha GaviriaMR#: [id number]: [id number]:[id number]/Sex: 20 / FADM Date: 07/17/20Loc: EDAttending Dr: Ordering Physician: Miguel Hernandez NP Date of Service: 07/17/20 Procedure(s): XR chest 1V Accession Number(s): [id number] cc: Miguel Hernandez MAIL DISTRIBUTION SCHEME EXAMINER~ EXAMINATION: XR CHEST CLINICAL INFORMATION: Shortness of breath COMPARISON: Earlier the same day. 07/13/2020. TECHNIQUE: Frontal view of the chest was obtained. FINDINGS: The right base opacity seen on 07/13/2020 has resolved. No focal consolidation or mass. No pleural effusion or pneumothorax. Normal heart size. Regional skeleton intact. XR/XR chest 1V IMPRESSION: Lungs remain clear. 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
--- NOTE | 2020-07-17 18:58 | MHC.RECOVSUP ---
? Reason for consult: support o Current location: ED9 o Identified substance use concern: Heroin - Seeking ATS (detox) - Support ? Intervention: o ATS bed search did not take place due to patient being admitted for other Medical reason o It has not been 24hrs since last use so Patient will be started on MAT as soon Doctor deems patient ready o Community resources provided o Harm reduction discussion ? Plan: o Follow up tomorrow to help patient start recovery and find patient a detox bed.. o Patient to follow up with [facility] after discharge ? Additional information: Patient here at the ED for other medical reason.. But admitted to being a opiate user.. and want to go to detox and to a program.. recourses was provided to patient.. patient wants and needs a follow up.
[2020-07-17 19:01] VITALS: BP 105/71; PULSE 93; RESP 12; O2SAT 92
[2020-07-17] MEDS: 0.9 % Sodium Chloride 1,000 ML 999 ML IV (19:48)
[2020-07-17] MEDS: methylPREDNISolone Sod Succ/PF 125 MG/2 ML VIAL IVPUSH (19:52)
[2020-07-17 20:02] VITALS: BP 105/71; PULSE 165
[2020-07-17] MEDS: EPINEPHrine 1 MG/ML VIAL 0.3 MG IM (20:02)
--- NOTE | 2020-07-17 20:03 | PC.NURSE ---
PT C/O ACUTE ONSET ITCHY HIVES BODY WIDE AND SEVERE DYSPNEA S/P SOLUMEDROL ADMIN, PT REPORTS HAVING ALLERGIC RXN TO SOLUMEDROL JUST A COUPLE DAYS AGO, PT MEDICATED W/ EPI IM PER ORDER, PT REPORTS IMMEDIATE RELIEF, HIVES VISIBLY DECREASING. PT PLACED ON 6L O2 NC, ST IN 150'S ON TELE.
[2020-07-17] MEDS: diphenhydrAMINE HCL 50 MG/ML VIAL 25 MG IVPUSH (20:06)
[2020-07-17 20:07] VITALS: BP 110/80; PULSE 150; RESP 28; O2SAT 93
[2020-07-17] MEDS: Albuterol Sulfate (0.083%) 2.5 MG/3 ML VIAL.NEB 5 MG INHALE (20:10)
--- NOTE | 2020-07-17 22:08 | PM.IMHP ---
History of Present Illness Date of Service: 07/17/20 Chief Complaint: Shortness of breath 20-year-old female with a past medical history of asthma, history of DVT on Xarelto, anxiety, depression, PTSD, recent admission to the hospital for acute respiratory failure in the setting of pneumonia/asthma exacerbation presented to the hospital today with a chief complaint of shortness of breath going on over the past few days. Denies any chest pain palpitations lightheadedness or dizziness. Denies any numbness tingling. Denies any fever chills. Reports dry cough. Denies any GI or symptoms. Review of all other systems is negative except mentioned above ER course: Per ER team patient was given Solu-Medrol and nebulizations on presentation. Patient subsequently after receiving the Solu-Medrol she developed allergic reaction with of hives all over the body along with grayish discoloration and wheezing-patient had similar episodes of allergies to the Solu-Medrol in the past as per the report. Subsequently patient was given epinephrine and Decadron with improvement in her symptoms. At the time of my interview patient appears comfortable no rash of noticed on the skin. Breathing comfortably. Speaking in full sentences. [facility] Medical History Asthma DVT (deep venous thrombosis) Social History (Updated 06/23/20 @ 23:05 by Kaylee Ga DO) Housing: Homeless Alcohol intake: never Smoking Status: Never smoker Cigarettes Per Day: 2 Use of substances other than those prescribed or required for medical reasons: Yes Substance Use Type: Heroin and Marijuana Last Used Substance: Days (ago) Advance Directives: No Advance Directives Information Provided: No service: No Meds Allergies Allergy/AdvReac Type Severity Reaction Status Date / Time methylprednisolone Allergy Severe Difficulty Verified 07/17/20 20:00 [From Solu-Medrol] Breathing Active Medications: Current Medications Generic Name Dose Route Start Last Admin Trade Name Freq PRN Reason Stop Dose Admin Acetaminophen 650 mg 07/17/20 21:59 Acetaminophen Supp 650 Mg Supp.Rect MD Q6H PRN Pain, Mild (Pain Scale 1-3) Albuterol/Ipratropium 3 ml 07/18/20 08:00 Albuterol/Iprat 2.5/0.5mg 3 Ml Ampul.Neb INHALE RQ6H WHILE AWAKE JARRETT Albuterol/Ipratropium 3 ml 07/18/20 08:00 Albuterol/Iprat 2.5/0.5mg 3 Ml Ampul.Neb INHALE RQ4H WHILE AWAKE [facility] Dexamethasone Sodium Phosphate 6 mg 07/18/20 09:00 Dexamethasone Sod Phosphate 4 Mg/Ml Vial IVPUSH BID [facility] Famotidine 20 mg 07/18/20 09:00 Famotidine 20 Mg Tablet PO DAILY [facility] Pharmacy Consult 1 each 07/17/20 15:33 Consult Rx Perform Med Rec MISCELLANE ONCE PRN Consult order Rivaroxaban 20 mg 07/17/20 22:15 Rivaroxaban 20 Mg Tablet PO QPM [facility] Sodium Chloride 3 ml 07/18/20 00:00 0.9 % Sodium Chloride Flush 3 Ml Syringe IVFLUSH QSHIFT [facility] Home Medications Medication Instructions Recorded Confirmed Last Taken Type albuterol sulfate [ProAir HFA] 2 puff INHALATION Q4H PRN 07/13/20 07/17/20 Unknown History rivaroxaban [Xarelto] 20 mg PO QPM 07/13/20 07/17/20 Unknown History Physical Exam Vital Signs and Narrative: Vital Signs: Last Vital Signs Temp 97.7 F 07/17/20 13:24 Pulse 150 H 07/17/20 20:07 Resp 28 H 07/17/20 20:07 BP 110/80 07/17/20 20:07 Pulse Ox 93 07/17/20 20:07 Body Mass Index 20.1 Gen: Appears be in no acute distress. On supplemental oxygen. Speaking in full sentences. HEENT: NCAT, Moist mucosa. No stridor Pulmonary: Slightly diminished breath sounds. CVS: Normal S1-S2 Abdomen: BS+, Soft, Nontender Extremities: Warm well perfused Neuro: Alert and awake. Results Labs CBC and Chem 7: 07/17/20 16:38 07/17/20 16:38 Labs: Laboratory Results - last 24 hr 07/17/20 07/17/20 07/17/20 16:38 16:38 16:38 MCV 86.9 MCH 29.2 MCHC 33.6 RDW 12.3 Plt Count 429 H D MPV 9.9 Immature Gran % (Auto) 0.3 Neut % (Auto) 63.6 Lymph % (Auto) 23.4 Dare % (Auto) 5.6 Eos % (Auto) 6.7 H Baso % (Auto) 0.4 Lymph # (Auto) 2.1 Dare # (Auto) 0.5 Eos # (Auto) 0.6 H Baso # (Auto) 0.0 Abs Immat Gran (auto) 0.03 Absolute Neuts (auto) 5.8 Absolute Nucleated RBC 0.000 Nucleated RBC % (auto) 0.0 PT 13.6 H INR 1.1 APTT 39.8 H Anion Gap Estim Creat Clear Calc Estimated GFR Random Glucose Lactic Acid Calcium Total Bilirubin AST ALT Alkaline Phosphatase Troponin I High Sens Total Protein Albumin COVID-19 (GEM) Negative COVID-19 Clin Com See Note 07/17/20 07/17/20 07/17/20 16:38 16:38 16:38 MCV MCH MCHC RDW Plt Count MPV Immature Gran % (Auto) Neut % (Auto) Lymph % (Auto) Dare % (Auto) Eos % (Auto) Baso % (Auto) Lymph # (Auto) Dare # (Auto) Eos # (Auto) Baso # (Auto) Abs Immat Gran (auto) Absolute Neuts (auto) Absolute Nucleated RBC Nucleated RBC % (auto) PT INR APTT Anion Gap 17 Estim Creat Clear Calc 103.4 Estimated GFR > 60 Random Glucose 73 Lactic Acid 0.8 Calcium 9.5 D Total Bilirubin 0.7 AST 15 ALT 10 Alkaline Phosphatase 73 Troponin I High Sens < 3.5 Total Protein 7.6 Albumin 4.0 COVID-19 (GEM) COVID-19 Clin Com Imaging Radiologist's Impressions: Impressions Chest X-Ray 07/17/20 13:59 IMPRESSION: Previously seen right lower lobe opacity has resolved. Lungs are now clear. Chest X-Ray 07/17/20 15:32 IMPRESSION: Lungs remain clear. Assessment and Plan (1) Asthma with status asthmaticus in adult: Qualifiers: Asthma persistence: unspecified Asthma severity: unspecified severity Qualified Code(s): J45.902 - Unspecified asthma with status asthmaticus Status: Acute 20-year-old female with a past medical history of asthma, DVT on Xarelto, anxiety, depression, PTSD, recent admission to the hospital for asthma/pneumonia presented to the hospital today with a chief complaint of shortness of breath. Noted to be in asthma exacerbation. Admitted to the hospital for further management. Acute asthma exacerbation: Continue supplemental oxygen p.r.n. continue DuoNeb standing and p.r.n.. Continue Decadron IV b.i.d.. Pulmonology consult. Anaphylaxis: Patient All of anaphylaxis reaction to Solu-Medrol. Which has been discontinued. Currently improving symptomatically. Will continue to monitor. History of DVT: Patient continued on home Xarelto. DVT prophylaxis: SCD boots Code status: Full code
[2020-07-17] MEDS: Rivaroxaban 20 MG TABLET PO (22:26)
[2020-07-17 22:27] VITALS: BP 111/83; PULSE 104; RESP 14; O2SAT 95
[2020-07-18] VITALS: PULSE 86; RESP 18; O2SAT 98
[2020-07-18] MEDS: 0.9 % Sodium Chloride Flush 3 ML SYRINGE IVFLUSH ×2 (00:44→08:04)
--- NOTE | 2020-07-18 00:53 | PC.NURSE ---
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 BECOMES TACHYCARDIC UPON TURNING. BREATHING EVEN, NON-LABORED. NO APPARENT DISTRESS AT THIS TIME.
[2020-07-18 04:35] VITALS: BP 114/72; PULSE 110; RESP 20; O2SAT 96
--- NOTE | 2020-07-18 04:36 | PC.NURSE ---
SLEEPING, BREATHING EVEN, NON-LABORED. 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 ON ROOM AIR AT THIS TIME.
--- NOTE | 2020-07-18 06:01 | PC.NURSE ---
PATIENT REPORTS SHE IS WITHDRAWN FROM HEROIN. SENT A MESSAGE TO HOSPITALIST.
--- NOTE | 2020-07-18 06:03 | PM.EVENT ---
Event Note Date of Service: 07/18/20 Event Note: Opiate dependence: Patient uses iv heroin. Will keep the patient cows protocol. Zofran p.r.n. Clonidine p.r.n.
[2020-07-18 06:37] VITALS: BP 102/57; PULSE 128
[2020-07-18] MEDS: cloNIDine HCL 0.1 MG TABLET PO (06:37)
--- NOTE | 2020-07-18 06:48 | PC.NURSE ---
THIS NURSE TO BEDSIDE TO MEDICATE WITH CLONIDINE FOR OPIATE WITHDRAWLS. TACHYCARDIC IN THE 120S. SMELT BURNING PLASTIC. PATIENT HIDING THINGS UNDER BEDDING. ASKED SECURITY TO CHECK DUE TO PATIENT'S HISTORY OF HERION USE. NOTHING FOUND
[2020-07-18 06:56] LABS: MANUAL DIFF FLAG NO
[2020-07-18 07:04] LABS: Basophils Percent Auto 0.1 % (0-2); Hematocrit 49.1 % (37-47); Hemoglobin 16.7 g/dl (12.0-16.0); Imm Gran Abs Auto 0.06 X10*3/uL (0.00-0.03); Imm Gran Pct Auto 0.6 % (0.0-0.4); Lymphocytes Absolute Auto 1.3 X10*3/uL (1.2-4.9); Lymphocytes Percent Auto 13.3 % (20-40); Mean Corpuscular Hemoglobin 29.4 pg (27.0-33.0); Mean Corpuscular Volume 86.4 fL (80-98); Mean Platelet Volume 9.4 fL (9.4-12.3); Monocytes Absolute Auto 0.1 X10*3/uL (0.1-1.2); Monocytes Percent Auto 1.2 % (2-11); Neutrophils Percent Auto 84.8 % (45-73); Platelet Count 463 X10*3/uL (160-400); Red Blood Count 5.68 X10*6/uL (4.20-5.50); Red Cell Distribution Width 12.4 % (11.0-16.0); White Blood Count 9.4 X10*3/uL (4.8-10.8)
[2020-07-18 07:41] LABS: Anion Gap 18 (12-20); Blood Urea Nitrogen 11 mg/dL (9-16); Calcium 9.4 mg/dL (8.4-10.2); Carbon Dioxide 19 mmol/L (22-29); Chloride 104 mmol/L (96-108); Creatinine Clr Calc Pharmacy 102.1; Estimated Glomerular Filt Rate > 60; Glucose Random 132 mg/dL (60-115); Potassium 4.6 mmol/L (3.3-5.1); Sodium 136 mmol/L (135-145)
[2020-07-18 07:57] VITALS: BP 100/54; PULSE 107; RESP 16; TEMP 36.8; O2SAT 95
--- NOTE | 2020-07-18 08:01 | PC.NURSE ---
REPORT TAKEN FROM RYNE TOLEDO. PT RESTING ON STRETCHER, NO DISTRESS AT THIS TIME. REPORTS BREATHING FEELS IMPROVED. LUNG SOUNDS CLEAR. PT AWARE SHE IS BEING ADMITTED, WAITING ON ROOM ASSIGNMENT. PT WAS MEDICATED BY PREVIOUS NURSE FOR WITHDRAWAL. PT REPORTS CLONIDINE USUALLY NOT EFFECTIVE FOR WITH DRAWLS. STATES USUALLY ONLY METHADONE OR SUBOXONE EFFECTIVE. SCORED 2 ON OPIATE WITHDRAW SCALE. VITALS UPDATED.
[2020-07-18] MEDS: Famotidine 20 MG TABLET PO (08:49)
[2020-07-18] MEDS: dexAMETHasone sod phosphate 4 MG/ML VIAL 6 MG IVPUSH (08:49)
[2020-07-18 11:57] VITALS: PULSE 105; RESP 12
--- NOTE | 2020-07-18 12:36 | MHC.RECOVSUP ---
Recovery Support note: Patient is a 20 year old Gambian speaking female who presented to [facility] ED due to asthma exacerbation. Patient was previously medically admitted and left AMA on 07/14/20. Patient is known to this keno writer/runner from previous consultations. This keno writer/runner met with patient to discuss her recovery and to see if there is anything we can do to make her more comfortable while she is hospitalized. Patient reports she is feeling well at this time. Patient reports she is interested in receiving methadone or Suboxone while admitted and that she would like to continue with the medication after discharge. Patient reports she would prefer methadone and that she has an ID and would be able to get to the methadone clinic after discharge. Discussed case with Recovery Support Team.
--- NOTE | 2020-07-18 13:10 | HO.PM.IMPN ---
Subjective Subjective Date of Service: 07/18/20 Interval History: the patient was seen and evaluated this morning Laying in bed, feels comfortable but still have wheezes, shortness of breath Denies any fever, chills No reported other overnight events. Systemic review: No fever, chills or weakness No chest pain, palpitation has shortness of breath or coughing No abdominal pain, nausea or vomiting No urinary symptoms No any rash or wounds Physical Exam Vital Signs: Vital Signs: Last Vital Signs Temp 98.2 F 07/18/20 07:57 Pulse 105 H 07/18/20 11:57 Resp 12 07/18/20 11:57 BP 100/54 L 07/18/20 07:57 Pulse Ox 95 07/18/20 07:57 Body Mass Index 20.1 Const: Other: Constitutional : Alert, oriented, not in distress Neck : Normal inspection, Supple Cardiovascular : RRR, S1 S2, no lower extremity edema Respiratory : decreasebilateral air entry, no crackles, biilateral scattered wheezes or rhonchi Gastrointestinal: soft, lax, Normal bowel sounds, Non tender Skin : Warm/Dry, No rash Neurological : Alert & oriented x3, No focal deficit Objective Data Current Medications Generic Name Dose Route Start Last Admin Trade Name Freq PRN Reason Stop Dose Admin Acetaminophen 650 mg 07/17/20 21:59 Acetaminophen Supp 650 Mg Supp.Rect NE Q6H PRN Pain, Mild (Pain Scale 1-3) Albuterol/Ipratropium 3 ml 07/18/20 08:00 07/18/20 09:32 Albuterol/Iprat 2.5/0.5mg 3 Ml Ampul.Neb INHALE Not Given RQ6H WHILE AWAKE [facility] Albuterol/Ipratropium 3 ml 07/18/20 08:00 Albuterol/Iprat 2.5/0.5mg 3 Ml Ampul.Neb INHALE Q4H PRN Shortness of Breath/Wheezing Clonidine HCl 0.1 mg 07/18/20 06:01 07/18/20 06:37 Clonidine Hcl 0.1 Mg Tablet PO 0.1 mg TID PRN Administration Anxiety Protocol Dexamethasone Sodium Phosphate 6 mg 07/18/20 09:00 07/18/20 08:49 Dexamethasone Sod Phosphate 4 Mg/Ml Vial IVPUSH 6 mg BID JARERTT Administration Famotidine 20 mg 07/18/20 09:00 07/18/20 08:49 Famotidine 20 Mg Tablet PO 20 mg DAILY JARRETT Administration Ondansetron HCl 4 mg 07/18/20 06:01 Ondansetron Hcl 4 Mg/2 Ml Vial IVPUSH Q8H PRN Nausea and Vomiting Pharmacy Consult 1 each 07/17/20 15:33 Consult Rx Perform Med Rec MISCELLANE ONCE PRN Consult order Rivaroxaban 20 mg 07/17/20 22:15 07/17/20 22:26 Rivaroxaban 20 Mg Tablet PO 20 mg BEDTIME JARRETT Administration Sodium Chloride 3 ml 07/18/20 00:00 07/18/20 08:04 0.9 % Sodium Chloride Flush 3 Ml Syringe IVFLUSH 3 ml QSHIFT JARRETT Administration Labs CBC & Chem 7: 07/18/20 06:46 07/18/20 06:46 Assessment and Plan (1) Asthma with status asthmaticus in adult: Status: Acute Assessment and Plan: 20-year-old female with a past medical history of asthma, DVT on Xarelto, anxiety, depression, PTSD, recent admission to the hospital for asthma/pneumonia presented to the hospital today with a chief complaint of shortness of breath. Noted to be in asthma exacerbation. Admitted to the hospital for further management. Acute asthma exacerbation Continue supplemental oxygen p.r.n. continue DuoNeb standing and p.r.n.. Continue Decadron IV b.i.d.. Pulmonology consult. Anaphylaxis seems she has a reaction to Solu-Medrol? not clear in ED discontinued improving symptomatically continue to monitor. History of DVT Patient continued on home Xarelto. DVT prophylaxis Xarelto
--- NOTE | 2020-07-18 13:51 | MHC.RECOVRN ---
Recovery Support Note: 1300 T/w met with pt after expressing interest in [facility]. Pt reports heroin use, IV and smoked, 1/2 pack daily, last use 07/17/20. Denies other substances. Pt reports body aches, anxiety, restlessness, denies stomach upset/nausea/vomiting/diarrhea. Pt has previously been prescribed Suboxone, approx 2 years ago, through [facility] x 2 months. Pt has utilized methadone at [facility] x 3 admissions. Longest period of abstinence since first use at age 18 was 1 month after [facility] and [facility]. Currently pt is unsure of goals of treatment, unsure if absence or reduction (if any) in use is desired. Social: Homeless, collecting unemployment, denies support system. Biological family history of addiction, pt grew up in foster homes. Plan: Referred to Shirley Mishra CNP, for addiction med consult.
--- NOTE | 2020-07-18 14:06 | MHC.CM.PN ---
Attempted to meet with patient in regards to discharge planning. Security currently searching patient's belongings. Will attempt to meet again. Continue to monitor for d/c needs.
--- NOTE | 2020-07-18 14:08 | PM.EVENT ---
Event Note Date of Service: 07/18/20 Event Note: Discharge note Discharge diagnosis Asthma exacerbation drug abuse and intoxication Patient decided to leave AMA after been caught using Heroin in ED. She is aware of the risks associated with using drugs and leaving AMA including getting sicker and possible overdose and .
--- NOTE | 2020-07-18 14:10 | PC.NURSE ---
this RN walked into pt room to check patient vitals. upon entering pt noted to put something under her blankets quickyl. when rn left pt got up and closed curtain. staff in [facility] could hear patient making noises in room. security was called for odor coming from room. security went in and search pt, multiple bags of heroin found along with allergist and tin foil made pipe. pt heart rate at one point elevated 170's. pt informed rn she would like to sign out AMA. call to hospitalist to notify. pt escorted out with security.
--- NOTE | 2020-07-18 14:14 | PM.CNPUL ---
History of Present Illness History of Present Illness Consult date: 07/18/20 Requesting physician: Mónica Bradley Reason for consult: asthma Chief complaint: Asthma Exacerbation Narrative: 20-year-old lady, nonsmoker, with underlying history of polysubstance abuse with multiple recent evaluations in emergency room for asthma exacerbations being admitted for an asthma exacerbation. Patient states that she uses ventilation occasionally and that she does not have any inhaled corticosteroid inhaler at this time. She denies ever being intubated for her asthma. She does not have pulmonary outpatient follow-up. Patient does complain of multiple environmental allergies. She now states that her wheezing and shortness of breath have significantly improved after being treated in the emergency room. Review of Systems Constitutional: Constitutional: Denies daytime sleepiness, Denies excessive sweating, Denies fatigue, Denies fever(s), Denies lethargy, Denies malaise, Denies night sweats, Denies snoring and Denies weight loss Eyes: Eyes: Denies blurry vision and Denies itchy eyes ENT: Denies nasal congestion, Denies post nasal drip, Denies sinus pain, Denies sinus pressure and Denies other ( Thrush) Cardiovascular: Cardiovascular: Denies chest pain, Denies pedal edema, Reports dyspnea, Denies orthopnea and Denies paroxysmal nocturnal dyspnea Respiratory: Respiratory: Denies cough, Denies hemoptysis, Denies excessive phlegm production, Reports dyspnea, Denies snoring and Reports wheezing Gastrointestinal: Gastrointestinal: Denies abdominal pain and Denies heartburn Musculoskeletal: Musculoskeletal: Denies myalgias, Denies arthralgias and Denies joint swelling Integumentary/Breasts: Skin/Breast: Denies rash Neurologic: Denies memory loss and Denies seizure-like activity Psychiatric: Psychiatric: Denies abnormal sleep pattern, Denies anxiety and Denies memory loss Endocrine: Endocrine: Denies excessive sweating, Denies fatigue and Denies heat intolerance Hematologic/Lymphatic: Hematologic/Lymphatic: Denies easy bruising Allergic/Immunologic: Allergic/Immunologic: Denies itchy eyes, Denies seasonal rhinorrhea and Reports wheezing PMFSH Past Medical History Medical History Asthma DVT (deep venous thrombosis) Social History Social History (Updated 06/23/20 @ 23:05 by Kaylee Ga DO) Housing: Homeless Alcohol intake: never Smoking Status: Never smoker Cigarettes Per Day: 2 Use of substances other than those prescribed or required for medical reasons: Yes Substance Use Type: Heroin and Marijuana Last Used Substance: Days (ago) Advance Directives: No Advance Directives Information Provided: No service: No Meds Allergies Allergy/AdvReac Type Severity Reaction Status Date / Time methylprednisolone Allergy Severe Difficulty Verified 07/17/20 20:00 [From [facility]] Breathing Active Medications: Current Medications Generic Name Dose Route Start Last Admin Trade Name Freq PRN Reason Stop Dose Admin Acetaminophen 650 mg 07/17/20 21:59 Acetaminophen Supp [address] Q6H PRN Pain, Mild (Pain Scale 1-3) Albuterol/Ipratropium 3 ml 07/18/20 08:00 07/18/20 09:32 Albuterol/Iprat 2.5/0.5mg 3 Ml Ampul.Neb INHALE Not Given RQ6H WHILE AWAKE JARRETT Albuterol/Ipratropium 3 ml 07/18/20 08:00 Albuterol/Iprat 2.5/0.5mg 3 Ml Ampul.Neb INHALE Q4H PRN Shortness of Breath/Wheezing Clonidine HCl 0.1 mg 07/18/20 06:01 07/18/20 06:37 Clonidine Hcl 0.1 Mg Tablet PO 0.1 mg TID PRN Administration Anxiety Protocol Dexamethasone Sodium Phosphate 6 mg 07/18/20 09:00 07/18/20 08:49 Dexamethasone Sod Phosphate 4 Mg/Ml Vial IVPUSH 6 mg BID JARRETT Administration Famotidine 20 mg 07/18/20 09:00 07/18/20 08:49 Famotidine 20 Mg Tablet PO 20 mg DAILY JARRETT Administration Ondansetron HCl 4 mg 07/18/20 06:01 Ondansetron Hcl 4 Mg/2 Ml Vial IVPUSH Q8H PRN Nausea and Vomiting Pharmacy Consult 1 each 07/17/20 15:33 Consult Rx Perform Med Rec MISCELLANE ONCE PRN Consult order Rivaroxaban 20 mg 07/17/20 22:15 07/17/20 22:26 Rivaroxaban 20 Mg Tablet PO 20 mg BEDTIME JARRETT Administration Sodium Chloride 3 ml 07/18/20 00:00 07/18/20 08:04 0.9 % Sodium Chloride Flush 3 Ml Syringe IVFLUSH 3 ml QSHIFT PENDING SALE TO [facility] Administration Home Medications Medication Instructions Recorded Confirmed Last Taken Type albuterol sulfate [ProAir HFA] 2 puff INHALATION Q4H PRN 07/13/20 07/17/20 Unknown History rivaroxaban [Xarelto] 20 mg PO QPM 07/13/20 07/17/20 Unknown History Physical Exam Vital Signs: Vital Signs: Last Vital Signs Temp 98.2 F 07/18/20 07:57 Pulse 105 H 07/18/20 11:57 Resp 12 07/18/20 11:57 BP 100/54 L 07/18/20 07:57 Pulse Ox 95 07/18/20 07:57 Body Mass Index 20.1 Const: General: no acute distress, alert and awake Eyes: Sclerae: sclerae normal EOM: EOMs intact bilaterally Neck: Neck: Yes no lymphadenopathy, Yes trachea midline and Yes supple Resp: Effort & Inspection: normal respiratory effort and no respiratory distress Auscultation: wheezes expiratory wheezes (Mild bilateral) Cardio: Rate: regular rate Rhythm: regular rhythm Heart sounds: no gallops, no murmurs and no rubs GI: Palpation (GI): Soft to palpation and Other GI palpation findings present ( Nontender) Auscultation: normal bowel sounds Extrem: General: Yes no pedal edema, No clubbing and No cyanosis Results Laboratory Findings CBC and BMP: 07/18/20 06:46 07/18/20 06:46 ABG, PT/INR, D-dimer: PT/INR, D-dimer PT 13.6 SEC (10.8-13.0) H 07/17/20 16:38 INR 1.1 (0.9-1.1) 07/17/20 16:38 Abnormal lab findings: Abnormal Labs 07/17/20 07/17/20 07/18/20 16:38 16:38 06:46 RBC 5.79 H D 5.68 H Hgb 16.9 H D 16.7 H Hct 50.3 H D 49.1 H Plt Count 429 H D 463 H Immature Gran % (Auto) 0.6 H Neut % (Auto) 84.8 H Lymph % (Auto) 13.3 L Garza % (Auto) 1.2 L Eos % (Auto) 6.7 H Eos # (Auto) 0.6 H Abs Immat Gran (auto) 0.06 H PT 13.6 H APTT 39.8 H Carbon Dioxide Random Glucose 07/18/20 06:46 RBC Hgb Hct Plt Count Immature Gran % (Auto) Neut % (Auto) Lymph % (Auto) Garza % (Auto) Eos % (Auto) Eos # (Auto) Abs Immat Gran (auto) PT APTT Carbon Dioxide 19 L Random Glucose 132 H D Assessment and Plan (1) Asthma exacerbation: Status: Acute Impression: Acute exacerbation of underlying at least moderate persistent asthma with an allergic component. Now improved with systemic glucocorticoids and inhaled bronchodilators. Recommendation: Continue with prednisone taper and nebulized bronchodilators. Patient would require inhaled corticosteroid upon discharge. Patient would benefit from outpatient pulmonary follow-up and workup for possible immunologic therapy.
== END 2020-07-18 14:15 | disposition left against medical advice (07) | DRG 141 ==
LOC: HO.ED 18:49 → HO.EDOVER 22:11
PROVIDERS: Nurse Practitioner Primary Care; Admitting Provider Hospitalist; Emergency Provider Internal Medicine; Visit Provider Student in an Organized Health Care Education/Training Program
DX: J45.41 Moderate persistent asthma with (acute) exacerbation (principal); F11.20 Opioid dependence, uncomplicated; F41.9 Anxiety disorder, unspecified; F32.9 Major depressive disorder, single episode, unspecified; F17.210 Nicotine dependence, cigarettes, uncomplicated; Z20.822 Contact with and (suspected) exposure to COVID-19; Z86.718 Personal history of other venous thrombosis and embolism; Z71.6 Tobacco abuse counseling; T88.6XXA Anaphylactic reaction due to adverse effect of correct drug or medicament properly administered, initial encounter; T38.0X5A Adverse effect of glucocorticoids and synthetic analogues, initial encounter; Y92.239 Unspecified place in hospital as the place of occurrence of the external cause; Z79.01 Long term (current) use of anticoagulants; Z79.899 Other long term (current) drug therapy
CPT/HCPCS: 36415; 71045; 71046; 80048; 80053; 83605; 84484; 85025; 85610; 85730; 87040; 87635; 93005; 94640; 96361; 96372; 96374; 96375; 99284; 99285; J0171; J1100; J1200; J2930

== ENCOUNTER 2020-07-20 12:11 | Emergency (ER) | payer OTHER, SELFPAY ==
[2020-07-20 12:59] VITALS: BP 102/59; PULSE 95; RESP 18; TEMP 37; O2SAT 98; BMI 20.1
--- NOTE | 2020-07-20 14:42 | ED.GENADULT ---
HPI - General Adult General Chief complaint: General Medical Stated complaint: DETOX Time Seen by Provider: 07/20/20 14:42 Source: patient Mode of arrival: ambulatory Limitations: no limitations History of Present Illness HPI narrative: 20 yo female with asthma, substance use here seeking detox from heroin. Patient uses IV heroin 50 bags per day (last use this morning). Also occasionally injects cocaine. Drinks alcohol occasionally. No SI/HI. No physiclal complaints. Related Data Home Medications Medication Instructions Recorded Confirmed albuterol sulfate [ProAir HFA] 2 puff INHALATION Q4H PRN 07/13/20 07/17/20 rivaroxaban [Xarelto] 20 mg PO QPM 07/13/20 07/17/20 Allergies Allergy/AdvReac Type Severity Reaction Status Date / Time methylprednisolone Allergy Severe Difficulty Verified 07/20/20 13:05 [facility] Breathing Review of Systems Review of Systems: Yes all other systems are reviewed and are negative Constitutional: Constitutional: Reports no additional constitutional complaints, Denies body ache(s), Denies chills, Denies fever(s), Denies headache(s) and Denies weakness Eyes: Eyes: Reports no additional eye complaints and Denies change in vision ENT: Reports system reviewed and no additional complaints, except as documented, Denies dizziness, Denies headache(s), Denies nasal congestion, Denies nasal discharge and Denies neck pain Cardiovascular: Cardiovascular: Reports no additional cardiovascular complaints, Denies chest pain, Denies leg edema and Denies dyspnea Respiratory: Respiratory: Reports no additional respiratory complaints, Denies cough and Denies dyspnea Gastrointestinal: Gastrointestinal: Reports no additional gastrointestinal complaints, Denies abdominal pain, Denies diarrhea, Denies nausea and Denies vomiting Genitourinary: Genitourinary: Reports no additional female genitourinary complaints and Denies urinary incontinence Musculoskeletal: Musculoskeletal: Reports no additional musculoskeletal complaints, Denies back pain, Denies arthralgias, Denies joint swelling, Denies neck pain, Denies numbness and Denies tingling Integumentary/Breasts: Skin/Breast: Reports system reviewed and no additional complaints, except as docu and Denies rash Neurologic: Reports system reviewed and no additional complaints, except as documented, Denies Abnormal speech present, Denies dizziness, Denies headache(s), Denies numbness, Denies tingling and Denies weakness [facility] Past Medical History Attestation statement: The following information was validated with the patient. Source: old records reviewed and nursing notes reviewed Medical History Asthma DVT (deep venous thrombosis) Social History Social History Housing: Homeless Alcohol intake: never Smoking Status: Never smoker Cigarettes Per Day: 2 Substance Use Type: Heroin and Marijuana Advance Directives: No Advance Directives Information Provided: No service: No Physical Exam Vital Signs: Vital Signs: Last Vital Signs Temp 98.6 F 07/20/20 12:59 Pulse 95 07/20/20 12:59 Resp 18 07/20/20 12:59 BP 102/59 L 07/20/20 12:59 Pulse Ox 98 07/20/20 12:59 Body Mass Index 20.1 Const: General: cooperative, healthy appearing, comfortable and no acute distress Orientation/consciousness: patient oriented x3 Limitations: no limitations HENMT: Head: Yes normal to inspection Ears: hearing grossly normal bilaterally General nose exam: Normal external nose present Face and sinus: Yes normal facial exam Mouth: Normal oral and palatal mucosa present Throat: Yes posterior oropharynx normal Eyes: General: appearance normal, both eyes and all related structures Pupils: Equal, round and reactive pupils present Neck: Neck: Yes normal visual inspection Chest: Chest palpation & inspection: normal inspection of the chest Resp: Effort & Inspection: normal respiratory effort Auscultation: clear to auscultation bilaterally Cardio: Rate: regular rate Rhythm: regular rhythm Peripheral pulses: Peripheral pulses 2+ throughout GI: Inspection: Yes normal to inspection Palpation (GI): Soft to palpation and nontender Auscultation: normal bowel sounds Back/Spine/Pelvis: Thoracic/Lumbar Spine: thoracic and lumbar spine normal to inspection Skin: General skin exam: no rashes or lesions noted Neuro: General: patient oriented x3, no focal motor deficits and normal sensation to monofilament Cranial nerves: Yes Equal, round and reactive pupils present Cognition (Neuro): normal cognition Speech: No Abnormal speech present Gait exam (Neuro): Normal gait present Motor exam (neuro): 5/5 motor strength present throughout Extrem: General: Yes normal to inspection Course Course Course Narrative: Pt here seeking detox for heroin. No SI/HI. No physical complaints. Will check JOSEPH, ur preg, involve care team. 1700-Sign out to Mercedes CRAMER pending above. Medical Decision Making Lab Data Labs: Lab Results 07/20/20 07/20/20 Range/Units 16:19 16:19 Urine Test NEGATIVE (NEGATIVE) Urine Opiates Screen POSITIVE H (Not Detect) Ur Barbiturates Screen Not Detected (Not Detect) Ur Phencyclidine Scrn Not Detected (Not Detect) Ur Amphetamines Screen Not Detected (Not Detect) U Benzodiazepines Scrn Not Detected (Not Detect) Urine Cocaine Screen POSITIVE H (Not Detect) U Marijuana (THC) Screen Not Detected (Not Detect) Discharge Plan Discharge Clinical Impression: Substance abuse or dependence Prescriptions: No Action Xarelto 20 mg Tablet 20 mg PO QPM RF: 0 albuterol sulfate [ProAir HFA] 90 mcg/actuation Hfa Aerosol Inhaler 2 puff INHALATION Q4H PRN (Reason: Shortness Of Breath) RF: 0
--- NOTE | 2020-07-20 15:23 | MHC.RECOVSUP ---
Recovery Support note: Patient is a 20 year old Dutch speaking female who presented to [facility] ED seeking detox. Patient was previously in [facility] ED awaiting an inpatient medical bed however patient signed out AMA. This commercial lines underwriter and the Recovery Support Nurse met with patient to discuss treatment options. Patient reports she is interested in going to detox and that she is willing to go anywhere. Patient information has been faxed to [facility] and this commercial lines underwriter awaits a call back.
[2020-07-20 16:28] LABS: UPreg QC Valid YES; Urine Pregnancy NEGATIVE (NEGATIVE)
--- NOTE | 2020-07-20 16:45 | MHC.RECOVSUP ---
Recovery Support note: Patient has remained calm and cooperative while in the ED. [facility] is now reporting that they do not have a female bed at this time. Patient information has been faxed to [facility] (phone - [phone], fax - [phone]) for review as they report they have one female bed due to a no-show. [facility] - no female beds [facility] - no female beds [facility] [place] for [facility] [place] [facility] - no female beds [facility] - no female beds [facility] - no female beds Discussed case with ED provider and CARE Team.
[2020-07-20 16:52] LABS: Amphetamine Screen Urine Not Detected (Not Detect); Barbiturates, Urine Not Detected (Not Detect); Benzodiazepines Screen Urine Not Detected (Not Detect); Cannabinoid Screen Urine Not Detected (Not Detect); Cocaine Screen Urine POSITIVE (Not Detect); Opiate Screen Urine POSITIVE (Not Detect); Phencyclidine Screen Urine Not Detected (Not Detect)
--- NOTE | 2020-07-20 19:24 | MHC.CARE ---
CARE Team follows up with [facility]. Pt is on waitlist, they will not know about bed availability until 2029. CARE Team will follow up with them at this time.
--- NOTE | 2020-07-20 22:08 | MHC.CARE ---
CARE Team reaches out to [facility]; no beds available tonight. CARE Team speaks with pt, who is homeless and does not have the resources to get herself in detox. CARE Team speaks with [facility]. Plan is for pt to remain in the ED overnight so CARE Team can conduct an [facility] bedsearch tomorrow or support pt w/ d/c plan.
[2020-07-20 22:55] VITALS: PULSE 90
[2020-07-20 23:30] VITALS: BP 100/62; PULSE 86
[2020-07-20] MEDS: Albuterol Sulfate 90 MCG 8 GM INHALER 2 PUFF INHALE (23:30)
[2020-07-20] MEDS: Dicyclomine HCl 10 MG CAPSULE 20 MG PO (23:30)
[2020-07-20] MEDS: LORazepam 1 MG TABLET PO (23:30)
[2020-07-20] MEDS: cloNIDine HCL 0.1 MG TABLET PO (23:30)
[2020-07-21 01:46] VITALS: BP 100/54; PULSE 85; RESP 16; TEMP 36.7; O2SAT 96
[2020-07-21 06:59] VITALS: BP 96/55; PULSE 86; RESP 18; TEMP 36.7; O2SAT 97
--- NOTE | 2020-07-21 07:15 | PC.NURSE ---
Report received. PT currently sleeping, respirations even and unlabored, in no apparent distress. PT to be seen by care team.
[2020-07-21 08:58] VITALS: BP 92/54; PULSE 107; RESP 16; TEMP 37; O2SAT 99
--- NOTE | 2020-07-21 10:16 | MHC.CARE ---
Pt was referred to CARE team from overnight CARE pass along for detox bedsearch. A statewide detox bedsearch conducted by t/w at 0915 until 0945 exhausted as all beds filled. [facility] private facility ([facility] was willing to accept pt but does not accept any [employer] insurances (pt has [facility]). T/w spoke w director and she graciously offered a scholarship which would reduce pts cost to less than half of standard rate (3500) which pt is not able to do. Pt and t/w discussed [facility] as she is familiar with them and wiling to seek help there for support and help w detox bedsearch in the days forward. Pt was also given info on [facility] temp sheltering in [place]. Pt was provided with lists of such resources as well a the detox facilities that t/w contacted. Pt was given info about [facility] [place] [facility] for followup also. The plan is that pt will be given a suboxone dose today by the ED provider and monitored and if appropriate given an ordert to fill for tomorrow at a local pharmacy. Pt was in agreement with this plan. Pt stated she needed her phone and closer to dc pt will be offered the CARE cell phone to coordinate her plan.
[2020-07-21 11:47] VITALS: PULSE 96
[2020-07-21] MEDS: Buprenorphine/Naloxone 4/1 mg FILM 1 FILM SUBLINGUAL ×2 (12:17→13:11)
== END 2020-07-21 14:34 | disposition home or self-care (01) ==
PROVIDERS: Nurse Practitioner Family; Emergency Provider Emergency Medicine
DX: F11.20 Opioid dependence, uncomplicated (principal); F14.20 Cocaine dependence, uncomplicated; Z59.0 Homelessness; Z71.51 Drug abuse counseling and surveillance of drug abuser
CPT/HCPCS: 80307; 81025; 99284

== ENCOUNTER 2020-07-28 17:48 | Emergency (ER) | payer OTHER, SELFPAY ==
[2020-07-28] VITALS (7 sets, daily range): BP systolic 102–140; BP diastolic 64–83; PULSE 98–126; RESP 18–22; TEMP 36.9; O2SAT 76–100; BMI 20.1
--- NOTE | ~2020-07-28 | XR_ITS ---
EXAMINATION: XR CHEST CLINICAL INFORMATION: Shortness of breath COMPARISON: Chest x-ray 07/17/2020 TECHNIQUE: Frontal view of the chest was obtained. FINDINGS: Cardiac silhouette is normal in size. The lungs are well aerated. There is no lobar consolidation. No pleural effusion or pneumothorax. XR/XR chest 1V IMPRESSION: Stable examination demonstrating no acute pulmonary pathology.
--- NOTE | 2020-07-28 18:08 | ECG_ITS ---
Test Reason : ASTHMA Blood Pressure : / mmHG Vent. Rate : 118 BPM Atrial Rate : 118 BPM P-R Int : 114 ms QRS Dur : 074 ms QT Int : 340 ms P-R-T Axes : 079 083 074 degrees QTc Int : 476 ms Sinus tachycardia Possible Right atrial enlargement Borderline ECG When compared with ECG of 17-JUL-2020 15:49, No significant change was found Referred By: Tobias Candelario Electronically Signed By:ALISA ORTIZ
--- NOTE | 2020-07-28 18:09 | PC.NURSE ---
extended expiratory effort, audible wheezes. slightly pale. st on monitor. able to speak in full sentences. 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 last heroin use 1 week ago.
[2020-07-28] MEDS: Albuterol Sulfate (0.083%) 2.5 MG/3 ML VIAL.NEB 10 MG INHALE (18:12)
--- NOTE | 2020-07-28 18:14 | ED.ASTHMA ---
HPI - Asthma General Chief Complaint: Asthma Stated Complaint: asthma Time Seen by Provider: 07/28/20 18:06 Source: patient Mode of arrival: ambulatory Limitations: no limitations History of Present Illness HPI Narrative: Patient presents to ED for eggs asthma exacerbation. Patient states 1 week of difficulty breathing with wheezing. Patient states no coughing, fever, or chills. Patient is a known substance abuse usual did not admit or denied taking any substance drug use. Patient has been here before for asthma and admission has been admitted. Related Data Home Medications Medication Instructions Recorded Confirmed albuterol sulfate [ProAir HFA] 2 puff INHALATION Q4H PRN 07/13/20 07/17/20 rivaroxaban [Xarelto] 20 mg PO QPM 07/13/20 07/17/20 Previous Rx's Medication Instructions Recorded buprenorphine-naloxone [Suboxone] 1 film SUBLINGUAL BID #2 ea 07/21/20 albuterol sulfate 2 puff INHALATION QID PRN #8.5 g 07/28/20 prednisone 40 mg PO DAILY #10 tab 07/28/20 Allergies Allergy/AdvReac Type Severity Reaction Status Date / Time methylprednisolone Allergy Severe Difficulty Verified 07/28/20 17:56 [From Solu-Medrol] Breathing Review of Systems Review of Systems: Yes all other systems are reviewed and are negative Constitutional: Constitutional: Reports as per HPI and Reports no additional constitutional complaints Eyes: Eyes: Reports as per HPI and Reports no additional eye complaints ENT: Reports system reviewed and no additional complaints, except as documented and Reports as per HPI Cardiovascular: Cardiovascular: Reports as per HPI, Reports no additional cardiovascular complaints and Reports dyspnea Respiratory: Respiratory: Reports as per HPI, Reports no additional respiratory complaints, Reports dyspnea and Reports wheezing Gastrointestinal: Gastrointestinal: Reports as per HPI and Reports no additional gastrointestinal complaints Genitourinary: Genitourinary: Reports no additional female genitourinary complaints and Reports as per HPI Musculoskeletal: Musculoskeletal: Reports no additional musculoskeletal complaints and Reports as per HPI Neurologic: Reports system reviewed and no additional complaints, except as documented and Reports as per HPI Psychiatric: Psychiatric: Reports no additional psychiatric complaints and Reports as per HPI Allergic/Immunologic: Allergic/Immunologic: Reports wheezing PMFSH Past Medical History Medical History Asthma DVT (deep venous thrombosis) Social History Social History Housing: Homeless Alcohol intake: never Smoking Status: Never smoker Cigarettes Per Day: 2 Smoked in Last 30 Days: No Use of substances other than those prescribed or required for medical reasons: Yes Substance Use Type: Heroin Substance Use Frequency: Occasionally Last Used Substance: Weeks (ago) Advance Directives: No Advance Directives Information Provided: Yes service: No Physical Exam Vital Signs: Vital Signs: Last Vital Signs Temp 98.4 F 07/28/20 17:56 Pulse 98 07/28/20 21:47 Resp 20 07/28/20 21:47 BP 102/64 07/28/20 21:47 Pulse Ox 95 07/28/20 21:47 Body Mass Index 20.1 Const: General: acute distress Orientation/consciousness: patient oriented x3 HENMT: Head: Yes normal to inspection and Yes No palpable skull fracture present Eyes: General: appearance normal, both eyes and all related structures Neck: Neck: Yes normal visual inspection, Yes full ROM, Yes no lymphadenopathy, Yes no meningeal signs, Yes trachea midline, Yes supple and No tender Chest: Chest palpation & inspection: normal inspection of the chest and normal palpation of entire chest wall Resp: Other: Speaking in short sentences Effort & Inspection: retractions (Mild) Auscultation: wheezes (Audible and diffuse) expiratory wheezes Cardio: Jugular venous distension: no JVD Heart sounds: S1 normal heart sound present and S2 normal heart sound present GI: Inspection: Yes normal to inspection Palpation (GI): Soft to palpation, not firm, nontender, no guarding and not rigid : General: No CVA tenderness and Yes no CVA tenderness Back/Spine/Pelvis: Back: no CVA tenderness, No CVA tenderness and No back tenderness Skin: General skin exam: no rashes or lesions noted and elasticity normal Neuro: General: patient oriented x3, no meningeal signs and CN's II-XI intact bilaterally Cranial nerves: Yes CN's II-XII intact bilaterally Extrem: Other: Bilateral lower extremity negative for swelling, pitting edema, or calf tenderness Course Course Course Narrative: Patient given 1 hour albuterol inhaler with non-rebreather mass and O2 saturation on monitor now is 99%. Patient states she is on feel better. Will do basic labs, chest x-ray, COVID swab, and will give her magnesium. Patient states anaphylactic reaction to Solu-Medrol. Patient states she is taking Decadron before in the past. Also will order lactic acid and blood culture. While patient was admitted during last admission she was given Decadron IV. Reevaluation(s) Reevaluation #1: Patient x-ray COVID swab came back negative. EKG sinus tach. Troponin negative. Chest x-ray negative for pneumonia. Patient's O2 saturation at room air presently is 93%. Patient is now speaking in full sentences and not using accessory muscles. When nurse walked patient around the ER her O2 sat dropped to 88%. Hospitalist admission request placed for admission for asthma exacerbation. Time: 21:17 Reevaluation #2: Hospitalist was contacted for admission for asthma exacerbation and accepted, but then patient states she does not want to be admitted and would like to sign out against medical advice. Patient informed possibility of , respiratory failure, decreased quality of life, but patient states she was still like to be signed out AMA. Patient states all she needs prednisone. Patient still having wheezing and will give her another treatment of albuterol. Patient states no reaction to prednisone the past. Presently at rest O2 saturation on the monitor is 93%. Patient still has diffuse expiratory wheezing. Patient given 1 more treatment of albuterol and then she would leave against medical advice. patient given albuterol inahler Time: 21:30 MDM - Asthma MDM Narrative Medical decision making narrative: Asthma exacerbation Lab Data Result diagrams: 07/28/20 18:24 07/28/20 18:24 Labs: Lab Results 07/28/20 07/28/20 07/28/20 Range/Units 18:23 18:23 18:24 WBC 10.5 (4.8-10.8) X10*3/uL RBC 5.03 (4.20-5.50) X10*6/uL Hgb 14.6 (12.0-16.0) g/dl Hct 46.4 (37-47) % MCV 92.2 (80-98) fL MCH 29.0 (27.0-33.0) pg MCHC 31.5 (31.0-35.0) g/dl RDW 12.8 (11.0-16.0) % Plt Count 320 D (160-400) X10*3/uL MPV 10.3 (9.4-12.3) fL Immature Gran % (Auto) 0.2 (0.0-0.4) % Neut % (Auto) 27.2 L (45-73) % Lymph % (Auto) 35.4 (20-40) % [place] % (Auto) 8.7 (2-11) % Eos % (Auto) 27.8 H (0-4) % Baso % (Auto) 0.7 (0-2) % Lymph # (Auto) 3.7 (1.2-4.9) X10*3/uL [place] # (Auto) 0.9 (0.1-1.2) X10*3/uL Eos # (Auto) 2.9 H (0.0-0.4) X10*3/uL Baso # (Auto) 0.1 (0.0-0.2) X10*3/uL Abs Immat Gran (auto) 0.02 (0.00-0.03) X10*3/uL Absolute Neuts (auto) 2.9 (2.0-8.3) X10*3/uL Absolute Nucleated RBC 0.000 (0.0-0.012) X10*3/uL Nucleated RBC % (auto) 0.0 (0.0-0.2) /100WBC PT 11.9 (10.8-13.0) SEC INR 1.0 (0.9-1.1) APTT 38.1 H (24.1-38.0) SEC Sodium (135-145) mmol/L Potassium (3.3-5.1) mmol/L Chloride (96-108) mmol/L Carbon Dioxide (22-29) mmol/L Anion Gap (12-20) BUN (9-16) mg/dL Creatinine (0.5-1.4) mg/dL Estim Creat Clear Calc Estimated GFR Random Glucose (60-115) mg/dL Lactic Acid (0.5-2.0) mmol/L Calcium (8.4-10.2) mg/dL Total Bilirubin (0.0-1.0) mg/dL AST (5-31) U/L ALT (0-31) U/L Alkaline Phosphatase (39-117) U/L Troponin I High Sens (<3.5-17.0) ng/L B-Natriuretic Peptide (<100) pg/mL Total Protein (6.5-8.0) g/dL Albumin (3.5-5.0) g/dL Beta HCG, Quant mIU/mL Coronavirus (PCR) NEGATIVE (Negative) Influenza Type A (PCR) NEGATIVE (Negative) Influenza Type B (PCR) NEGATIVE (Negative) RSV RNA Qual (PCR) NEGATIVE (Negative) 07/28/20 07/28/20 07/28/20 Range/Units 18:24 18:24 18:24 WBC (4.8-10.8) X10*3/uL RBC (4.20-5.50) X10*6/uL Hgb (12.0-16.0) g/dl Hct (37-47) % MCV (80-98) fL MCH (27.0-33.0) pg MCHC (31.0-35.0) g/dl RDW (11.0-16.0) % Plt Count (160-400) X10*3/uL MPV (9.4-12.3) fL Immature Gran % (Auto) (0.0-0.4) % Neut % (Auto) (45-73) % Lymph % (Auto) (20-40) % [place] % (Auto) (2-11) % Eos % (Auto) (0-4) % Baso % (Auto) (0-2) % Lymph # (Auto) (1.2-4.9) X10*3/uL [place] # (Auto) (0.1-1.2) X10*3/uL Eos # (Auto) (0.0-0.4) X10*3/uL Baso # (Auto) (0.0-0.2) X10*3/uL Abs Immat Gran (auto) (0.00-0.03) X10*3/uL Absolute Neuts (auto) (2.0-8.3) X10*3/uL Absolute Nucleated RBC (0.0-0.012) X10*3/uL Nucleated RBC % (auto) (0.0-0.2) /100WBC PT (10.8-13.0) SEC INR (0.9-1.1) APTT (24.1-38.0) SEC Sodium 144 (135-145) mmol/L Potassium 4.1 (3.3-5.1) mmol/L Chloride 104 (96-108) mmol/L Carbon Dioxide 32 H (22-29) mmol/L Anion Gap 12 (12-20) BUN 9 (9-16) mg/dL Creatinine 0.77 (0.5-1.4) mg/dL Estim Creat Clear Calc 103.4 Estimated GFR > 60 Random Glucose 95 (60-115) mg/dL Lactic Acid 0.9 (0.5-2.0) mmol/L Calcium 8.8 D (8.4-10.2) mg/dL Total Bilirubin 0.3 (0.0-1.0) mg/dL AST 16 (5-31) U/L ALT 9 (0-31) U/L Alkaline Phosphatase 65 (39-117) U/L Troponin I High Sens < 3.5 (<3.5-17.0) ng/L B-Natriuretic Peptide (<100) pg/mL Total Protein 6.9 (6.5-8.0) g/dL Albumin 3.9 (3.5-5.0) g/dL Beta HCG, Quant < 2 mIU/mL Coronavirus (PCR) (Negative) Influenza Type A (PCR) (Negative) Influenza Type B (PCR) (Negative) RSV RNA Qual (PCR) (Negative) 07/28/20 Range/Units 18:24 WBC (4.8-10.8) X10*3/uL RBC (4.20-5.50) X10*6/uL Hgb (12.0-16.0) g/dl Hct (37-47) % MCV (80-98) fL MCH (27.0-33.0) pg MCHC (31.0-35.0) g/dl RDW (11.0-16.0) % Plt Count (160-400) X10*3/uL MPV (9.4-12.3) fL Immature Gran % (Auto) (0.0-0.4) % Neut % (Auto) (45-73) % Lymph % (Auto) (20-40) % [place] % (Auto) (2-11) % Eos % (Auto) (0-4) % Baso % (Auto) (0-2) % Lymph # (Auto) (1.2-4.9) X10*3/uL [place] # (Auto) (0.1-1.2) X10*3/uL Eos # (Auto) (0.0-0.4) X10*3/uL Baso # (Auto) (0.0-0.2) X10*3/uL Abs Immat Gran (auto) (0.00-0.03) X10*3/uL Absolute Neuts (auto) (2.0-8.3) X10*3/uL Absolute Nucleated RBC (0.0-0.012) X10*3/uL Nucleated RBC % (auto) (0.0-0.2) /100WBC PT (10.8-13.0) SEC INR (0.9-1.1) APTT (24.1-38.0) SEC Sodium (135-145) mmol/L Potassium (3.3-5.1) mmol/L Chloride (96-108) mmol/L Carbon Dioxide (22-29) mmol/L Anion Gap (12-20) BUN (9-16) mg/dL Creatinine (0.5-1.4) mg/dL Estim Creat Clear Calc Estimated GFR Random Glucose (60-115) mg/dL Lactic Acid (0.5-2.0) mmol/L Calcium (8.4-10.2) mg/dL Total Bilirubin (0.0-1.0) mg/dL AST (5-31) U/L ALT (0-31) U/L Alkaline Phosphatase (39-117) U/L Troponin I High Sens (<3.5-17.0) ng/L B-Natriuretic Peptide 19 (<100) pg/mL Total Protein (6.5-8.0) g/dL Albumin (3.5-5.0) g/dL Beta HCG, Quant mIU/mL Coronavirus (PCR) (Negative) Influenza Type A (PCR) (Negative) Influenza Type B (PCR) (Negative) RSV RNA Qual (PCR) (Negative) ECG Data Interpretation: Sinus tach. Ventricular rate 118. AK interval 114. QRS duration 74. QTC 476. Negative STEMI. Discharge Plan Discharge Clinical Impression: Asthma exacerbation Patient Disposition: Left Against Medical Advice Instructions: Asthma (ED) Additional Instructions: Return to the ED for any shortness of breath, swelling of lower extremity, coughing up blood, fever, chills, calf pain, chest pain, or any other concerning symptoms Prescriptions: New prednisone 20 mg tablet 40 mg PO DAILY Qty: 10 RF: 0 albuterol sulfate 90 mcg/actuation HFA aerosol inhaler 2 puff inhalation QID PRN (Reason: shortness of breath or wheezing) Qty: 8.5 RF: 0 No Action Xarelto 20 mg Tablet 20 mg PO QPM RF: 0 albuterol sulfate [ProAir HFA] 90 mcg/actuation Hfa Aerosol Inhaler 2 puff INHALATION Q4H PRN (Reason: Shortness Of Breath) RF: 0 buprenorphine-naloxone [Suboxone] 8-2 mg film 1 film sublingual BID Qty: 2 RF: 0 Referrals: Joseph Acosta MD [Primary Care Provider] - 2 days (Asthma exacerbation) Stand Alone Forms: Against Medical Advice Interventions: ED Discharge Assessment Last Done: 07/28/20 21:57 Discharge Date/Time: 07/28/20 21:57 Print Language: [place]
[2020-07-28] MEDS: Magnesium Sulfate/H2O 2 GM/50 ML PIGGYBACK IV (18:22)
[2020-07-28 18:37] LABS: MANUAL DIFF FLAG NO
[2020-07-28 18:39] LABS: Basophils Absolute Auto 0.1 X10*3/uL (0.0-0.2); Basophils Percent Auto 0.7 % (0-2); Eosinophils Absolute Auto 2.9 X10*3/uL (0.0-0.4); Eosinophils Percent Auto 27.8 % (0-4); Hematocrit 46.4 % (37-47); Hemoglobin 14.6 g/dl (12.0-16.0); Imm Gran Abs Auto 0.02 X10*3/uL (0.00-0.03); Imm Gran Pct Auto 0.2 % (0.0-0.4); Lymphocytes Absolute Auto 3.7 X10*3/uL (1.2-4.9); Lymphocytes Percent Auto 35.4 % (20-40); Mean Corpuscular HGB Conc 31.5 g/dl (31.0-35.0); Mean Corpuscular Volume 92.2 fL (80-98); Mean Platelet Volume 10.3 fL (9.4-12.3); Monocytes Absolute Auto 0.9 X10*3/uL (0.1-1.2); Monocytes Percent Auto 8.7 % (2-11); Neutrophils Absolute Auto 2.9 X10*3/uL (2.0-8.3); Neutrophils Percent Auto 27.2 % (45-73); Platelet Count 320 X10*3/uL (160-400); Red Blood Count 5.03 X10*6/uL (4.20-5.50); Red Cell Distribution Width 12.8 % (11.0-16.0); White Blood Count 10.5 X10*3/uL (4.8-10.8)
[2020-07-28] MEDS: diphenhydrAMINE HCL 50 MG/ML VIAL IVPUSH (18:43)
[2020-07-28] MEDS: dexAMETHasone sod phosphate 4 MG/ML VIAL 6 MG IVPUSH (18:43)
[2020-07-28 18:50] LABS: Prothrombin Time 11.9 SEC (10.8-13.0)
[2020-07-28 18:52] LABS: Partial Thromboplastin Time 38.1 SEC (24.1-38.0)
[2020-07-28 19:00] LABS: Lactic Acid 0.9 mmol/L (0.5-2.0)
[2020-07-28 19:03] LABS: Alanine Aminotransferase 9 U/L (0-31); Albumin Level 3.9 g/dL (3.5-5.0); Alkaline Phosphatase 65 U/L (39-117); Anion Gap 12 (12-20); Aspartate Amino Transferase 16 U/L (5-31); Bilirubin Total 0.3 mg/dL (0.0-1.0); Blood Urea Nitrogen 9 mg/dL (9-16); Calcium 8.8 mg/dL (8.4-10.2); Carbon Dioxide 32 mmol/L (22-29); Chloride 104 mmol/L (96-108); Creatinine Clr Calc Pharmacy 103.4; Estimated Glomerular Filt Rate > 60; Glucose Random 95 mg/dL (60-115); Potassium 4.1 mmol/L (3.3-5.1); Sodium 144 mmol/L (135-145); Total Protein 6.9 g/dL (6.5-8.0)
[2020-07-28 19:10] LABS: B Type Natriuretic Peptide 19 pg/mL (<100); HCG Quantitative < 2 mIU/mL; Troponin-I High Sensitivity < 3.5 ng/L (<3.5-17.0)
[2020-07-28 19:45] LABS: Influenza A PCR NEGATIVE (Negative); Influenza B PCR NEGATIVE (Negative); Resp Syncy Virus RNA Qual PCR NEGATIVE (Negative); SARS COV2 PCR INHOUSE NEGATIVE (Negative)
[2020-07-28] MEDS: 0.9 % Sodium Chloride 1,000 ML 999 ML IV (20:30)
--- NOTE | 2020-07-28 20:31 | PC.NURSE ---
IVF infusing per MAR.
[2020-07-28] MEDS: Albuterol Sulfate 90 MCG 8 GM INHALER 4 PUFF INHALE (21:45)
--- NOTE | 2020-07-28 21:54 | PC.NURSE ---
[place] [facility] [place] concerned that [place] bed at the longterm will be given away due to a hospital admission. This RN offering to call longterm, pt refusing, states she just needs Prednisone and will be fine. This RN discussing with PA, PA agreeable to DC. Pt medicated with inhaler, IV removed, VS updated. Awaiting ride to longterm.
== END 2020-07-28 21:57 | disposition left against medical advice (07) ==
PROVIDERS: Physician Assistant; Emergency Provider Emergency Medicine; PCP Internal Medicine
DX: J45.901 Unspecified asthma with (acute) exacerbation (principal); Z20.822 Contact with and (suspected) exposure to COVID-19; F11.20 Opioid dependence, uncomplicated; F17.210 Nicotine dependence, cigarettes, uncomplicated; Z86.718 Personal history of other venous thrombosis and embolism; Z79.01 Long term (current) use of anticoagulants; Z79.899 Other long term (current) drug therapy; Z59.0 Homelessness
CPT/HCPCS: 0241U; 36415; 71045; 80053; 83605; 83880; 84484; 84702; 85025; 85610; 85730; 87040; 93005; 94640; 94644; 96361; 96365; 96375; 99284; J1100; J1200; J3475

== ENCOUNTER 2020-09-01 11:47 | Inpatient (IN) | payer OTHER, SELFPAY ==
[2020-09-01] VITALS (7 sets, daily range): BP systolic 97–125; BP diastolic 46–85; PULSE 86–112; RESP 12–20; TEMP 36.6–37.6; O2SAT 93–99; BMI 18.8
--- NOTE | ~2020-09-01 | XR_ITS ---
EXAMINATION: XR CHEST CLINICAL INFORMATION: Difficulty breathing, evaluate for pneumonia COMPARISON: Chest radiograph 07/28/2020 TECHNIQUE: Frontal view of the chest was obtained. FINDINGS: Normal cardiomediastinal silhouette. Mild hyperinflation of the lungs. There is a new subtle hazy opacity in the right lower lobe. The left lung is clear. No pleural effusion or pneumothorax. No acute osseous abnormality. XR/XR chest 1V IMPRESSION: Subtle hazy opacity in the right lower lobe, that may represent developing infiltrate. Mild hyperinflation of the lungs, which is nonspecific, but can be seen in setting of small airways disease.
--- NOTE | 2020-09-01 11:55 | ECG_ITS ---
Test Reason : ASTHMA Blood Pressure : / mmHG Vent. Rate : 119 BPM Atrial Rate : 119 BPM P-R Int : 118 ms QRS Dur : 082 ms QT Int : 340 ms P-R-T Axes : 081 095 052 degrees QTc Int : 478 ms Sinus tachycardia Biatrial enlargement Rightward axis Pulmonary disease pattern Abnormal ECG When compared with ECG of 28-JUL-2020 18:41, No significant change was found Referred By: Aisha Quiñones Electronically Signed By:Ceferino Ness
--- NOTE | 2020-09-01 11:57 | ED_ITS ---
HPI - Asthma General Chief Complaint: Asthma Stated Complaint: ashtma Time Seen by Provider: 09/01/20 11:51 Source: patient Mode of arrival: ambulatory Limitations: no limitations History of Present Illness HPI Narrative: 20 yo female with past medical history asthma, DVT on Xarelto, anxiety, depression, PTSD, polysubstance use. Patient has multiple admits for asthma. Most recently admitted 07/17-07/18 for acute respiratory failure with asthma exacerbation and pneumonia but left against medical advice, previously 07/14 leaving AMA, 06/24-06/27. Patient presents today with cough, wheezing on relieved with albuterol. No fevers, productive cough, chest pain, leg swelling or pain. She does report shortness of breath. Using heroin daily. Last use 5pm yesterday. Interested in suboxone. MD complaint: asthma attack Related Data Home Medications Medication Instructions Recorded Confirmed albuterol sulfate [ProAir HFA] 2 puff INHALATION Q4H PRN 07/13/20 09/01/20 Allergies Allergy/AdvReac Type Severity Reaction Status Date / Time methylprednisolone Allergy Severe Difficulty Verified 07/28/20 17:56 [From Solu-Medrol] Breathing Review of Systems Review of Systems: Yes all other systems are reviewed and are negative Constitutional: Constitutional: Reports no additional constitutional complaints, Denies body ache(s), Denies chills, Denies fever(s), Denies headache(s) and Denies weakness Eyes: Eyes: Reports no additional eye complaints and Denies change in vision ENT: Reports system reviewed and no additional complaints, except as documented, Denies dizziness, Denies headache(s), Denies nasal congestion, Denies nasal discharge and Denies neck pain Cardiovascular: Cardiovascular: Reports no additional cardiovascular complaints, Denies chest pain, Denies leg edema and Reports dyspnea Respiratory: Respiratory: Reports no additional respiratory complaints, Reports cough and Reports dyspnea Gastrointestinal: Gastrointestinal: Reports no additional gastrointestinal complaints, Denies abdominal pain, Denies diarrhea, Denies nausea and Denies vo miting Genitourinary: Genitourinary: Reports no additional female genitourinary complaints and Denies urinary incontinence Musculoskeletal: Musculoskeletal: Reports no additional musculoskeletal complaints, Denies back pain, Denies arthralgias, Denies joint swelling, Denies neck pain, Denies numbness and Denies tingling Integumentary/Breasts: Skin/Breast: Reports system reviewed and no additional complaints, except as docu and Denies rash Neurologic: Reports system reviewed and no additional complaints, except as d ocumented, Denies Abnormal speech present, Denies dizziness, Denies headache(s), Denies numbness, Denies tingling and Denies weakness PMFSH Past Medical History Attestation statement: The following information was validated with the patient. Source: old records reviewed and nursing notes reviewed Medical History Asthma DVT (deep venous thrombosis) Social History Social History Housing: Homeless Alcohol intake: never Smoking Status: Never smoker Cigarettes Per Day: 2 Use of substances other than those prescribed or required for medical reasons: Yes Substance Use Type: Heroin Advance Directives: No Advance Directives Information Provided: Yes service: No Physical Exam 2 Vital Signs: Vital Signs: Last Vital Signs Temp 98.1 F 09/01/20 15:33 Pulse 106 H 09/01/20 15:33 Resp 14 09/01/20 15:33 BP 125/62 09/01/20 15:33 Pulse Ox 96 09/01/20 15:33 Body Mass Index 18.8 Const: General: cooperative, in distress and anxious Orientation/consciousness: patient oriented x3 Limitations: no limitations HENMT: Head: Yes normal to inspection Ears: hearing grossly normal bilaterally General nose exam: Normal external nose present Face and sinus: Yes normal facial exam Mouth: Normal oral and palatal mucosa present Throat: Yes posterior oropharynx normal Eyes: General: appearance normal, both eyes and all related structures Pupils: Equal, round and reactive pupils present Neck: Neck: Yes normal visual inspection Chest: Chest palpation & inspection: normal inspection of the chest Resp: Other: Patient in respiratory distress, leaning forward with respiratory rate in the high 30s, inspiratory and expiratory wheezing throughout, speaking 1-2 word phrases. Cardio: Rate: tachycardic (120's) Rhythm: regular rhythm Peripheral pulses: Peripheral pulses 2+ throughout GI: Inspection: Yes normal to inspection Palpation (GI): Soft to palpation and nontender Auscultation: normal bowel sounds Back/Spine/Pelvis: Thoracic/Lumbar Spine: thoracic and lumbar spine normal to inspection Skin: General skin exam: no rashes or lesions noted Neuro: General: patient oriented x3, no focal motor deficits and normal sensation to monofilament Cranial nerves: Yes Equal, round and reactive pupils present Cognition (Neuro): normal cognition Speech: No Abnormal speech present Gait exam (Neuro): Normal gait present Motor exam (neuro): 5/5 motor strength present throughout Extrem: General: Yes normal to inspection, Yes no pedal edema and Yes no calf tenderness Course Course Course Narrative: 20-year-old female here with asthma symptoms, respiratory distress with room air saturations 78% on arrival. Oxygen saturation improved on 100% non-rebreather. Inspiratory and expiratory wheezing throughout. Respiratory called. Will give nebulizer, IV magnesium. Patient tells me she cannot have IV Solu-Medrol due to allergic reaction but is able to tolerate prednisone by mouth. Prednisone ordered. Will check labs, chest x-ray, EKG, COVID screen. 1300-Patient received an additional 5mg albuterol for total 10mg. CXR c/w with RLL infiltrate. At this time infection is suspected. Antibiotics ordered. Will plan for admission. Re-evaluated patient with improvement in respiratory rate (now 20's), oxygen saturation 94% on 2 LNC, resting with eyes closed, much more comfortable appearing. 1330-Spoke to Domenica WEBSTER who accepted admission. Patient admitted. 1345-Patient had an episode of hypotension. NS 30cc/kg bolus ordered. MDM - Asthma MDM Narrative Medical decision making narrative: asthma exacerbation, pna, pe, viral syndrome Medical Records Attestation: I reviewed the patient's medical records. Lab Data Attestation: I reviewed the patient's lab results. Result diagrams: 09/01/20 12:11 09/01/20 12:11 Labs: Lab Results 09/01/20 09/01/20 09/01/20 Range/Units 12:11 12:11 12:11 WBC 10.5 (4.8-10.8) X10*3/uL RBC 5.39 (4.20-5.50) X10*6/uL Hgb 15.7 (12.0-16.0) g/dl Hct 49.3 H (37-47) % MCV 91.5 (80-98) fL MCH 29.1 (27.0-33.0) pg MCHC 31.8 (31.0-35.0) g/dl RDW 13.0 (11.0-16.0) % Plt Count 264 (160-400) X10*3/uL MPV 9.7 (9.4-12.3) fL Immature Gran % (Auto) 0.1 (0.0-0.4) % Neut % (Auto) 51.9 (45-73) % Lymph % (Auto) 19.8 L (20-40) % [place] % (Auto) 8.7 (2-11) % Eos % (Auto) 19.0 H (0-4) % Baso % (Auto) 0.5 (0-2) % Lymph # (Auto) 2.1 (1.2-4.9) X10*3/uL [place] # (Auto) 0.9 (0.1-1.2) X10*3/uL Eos # (Auto) 2.0 H (0.0-0.4) X10*3/uL Baso # (Auto) 0.1 (0.0-0.2) X10*3/uL Abs Immat Gran (auto) 0.01 (0.00-0.03) X10*3/uL Absolute Neuts (auto) 5.5 (2.0-8.3) X10*3/uL Absolute Nucleated RBC 0.000 (0.0-0.012) X10*3/uL Nucleated RBC % (auto) 0.0 (0.0-0.2) /100WBC PT 12.3 (10.8-13.0) SEC INR 1.0 (0.9-1.1) Sodium 140 (135-145) mmol/L Potassium 3.7 (3.3-5.1) mmol/L Chloride 99 (96-108) mmol/L Carbon Dioxide 34 H (22-29) mmol/L Anion Gap 11 L (12-20) BUN 9 (9-16) mg/dL Creatinine 0.79 (0.5-1.4) mg/dL Estim Creat Clear Calc 94.4 Estimated GFR > 60 Random Glucose 109 (60-115) mg/dL Lactic Acid (0.5-2.0) mmol/L Calcium 9.0 (8.4-10.2) mg/dL Magnesium 2.2 (1.6-2.6) mg/dL Total Bilirubin 0.3 (0.0-1.0) mg/dL Direct Bilirubin 0.2 (0.0-0.5) mg/dL AST 18 (5-31) U/L ALT 10 (0-31) U/L Alkaline Phosphatase 61 (39-117) U/L Total Protein 7.3 (6.5-8.0) g/dL Albumin 4.3 (3.5-5.0) g/dL COVID-19 (GEM) (Negative) COVID-19 Clin Com 09/01/20 09/01/20 Range/Units 12:11 12:40 WBC (4.8-10.8) X10*3/uL RBC (4.20-5.50) X10*6/uL Hgb (12.0-16.0) g/dl Hct (37-47) % MCV (80-98) fL MCH (27.0-33.0) pg MCHC (31.0-35.0) g/dl RDW (11.0-16.0) % Plt Count (160-400) X10*3/uL MPV (9.4-12.3) fL Immature Gran % (Auto) (0.0-0.4) % Neut % (Auto) (45-73) % Lymph % (Auto) (20-40) % [place] % (Auto) (2-11) % Eos % (Auto) (0-4) % Baso % (Auto) (0-2) % Lymph # (Auto) (1.2-4.9) X10*3/uL [place] # (Auto) (0.1-1.2) X10*3/uL Eos # (Auto) (0.0-0.4) X10*3/uL Baso # (Auto) (0.0-0.2) X10*3/uL Abs Immat Gran (auto) (0.00-0.03) X10*3/uL Absolute Neuts (auto) (2.0-8.3) X10*3/uL Absolute Nucleated RBC (0.0-0.012) X10*3/uL Nucleated RBC % (auto) (0.0-0.2) /100WBC PT (10.8-13.0) SEC INR (0.9-1.1) Sodium (135-145) mmol/L Potassium (3.3-5.1) mmol/L Chloride (96-108) mmol/L Carbon Dioxide (22-29) mmol/L Anion Gap (12-20) BUN (9-16) mg/dL Creatinine (0.5-1.4) mg/dL Estim Creat Clear Calc Estimated GFR Random Glucose (60-115) mg/dL Lactic Acid 1.3 (0.5-2.0) mmol/L Calcium (8.4-10.2) mg/dL Magnesium (1.6-2.6) mg/dL Total Bilirubin (0.0-1.0) mg/dL Direct Bilirubin (0.0-0.5) mg/dL AST (5-31) U/L ALT (0-31) U/L Alkaline Phosphatase (39-117) U/L Total Protein (6.5-8.0) g/dL Albumin (3.5-5.0) g/dL COVID-19 (GEM) Negative (Negative) COVID-19 Clin Com See Note Imaging Data Chest x-ray: Attestation: I personally reviewed and interpreted this imaging study as follows: Radiologist's impression: EXAMINATION: XR CHEST CLINICAL INFORMATION: Difficulty breathing, evaluate for pneumonia COMPARISON: Chest radiograph 07/28/2020 TECHNIQUE: Frontal view of the chest was obtained. FINDINGS: Normal cardiomediastinal silhouette. Mild hyperinflation of the lungs. There is a new subtle hazy opacity in the right lower lobe. The left lung is clear. No pleural effusion or pneumothorax. No acute osseous abnormality. XR/XR chest 1V IMPRESSION: Subtle hazy opacity in the right lower lobe, that may represent developing infiltrate. Mild hyperinflation of the lungs, which is nonspecific, but can be seen in setting of small airways disease. Discharge Plan Discharge Clinical Impression: Asthma exacerbation, Hypoxia, Pneumonia Patient Disposition: Admitted As Inpatient
[2020-09-01] MEDS: Albuterol/Iprat 2.5/0.5MG 3 ML AMPUL.NEB INHALE (12:02)
[2020-09-01] MEDS: Albuterol Sulfate (0.083%) 2.5 MG/3 ML VIAL.NEB 5 MG INHALE (12:14)
[2020-09-01] MEDS: Magnesium Sulfate/H2O 2 GM/50 ML PIGGYBACK IV (12:16)
[2020-09-01] MEDS: predniSONE 20 MG TABLET 60 MG PO (12:16)
[2020-09-01 12:18] LABS: MANUAL DIFF FLAG NO
[2020-09-01 12:19] LABS: Basophils Absolute Auto 0.1 X10*3/uL (0.0-0.2); Basophils Percent Auto 0.5 % (0-2); Hematocrit 49.3 % (37-47); Hemoglobin 15.7 g/dl (12.0-16.0); Imm Gran Abs Auto 0.01 X10*3/uL (0.00-0.03); Imm Gran Pct Auto 0.1 % (0.0-0.4); Lymphocytes Absolute Auto 2.1 X10*3/uL (1.2-4.9); Lymphocytes Percent Auto 19.8 % (20-40); Mean Corpuscular HGB Conc 31.8 g/dl (31.0-35.0); Mean Corpuscular Hemoglobin 29.1 pg (27.0-33.0); Mean Corpuscular Volume 91.5 fL (80-98); Mean Platelet Volume 9.7 fL (9.4-12.3); Monocytes Absolute Auto 0.9 X10*3/uL (0.1-1.2); Monocytes Percent Auto 8.7 % (2-11); Neutrophils Absolute Auto 5.5 X10*3/uL (2.0-8.3); Neutrophils Percent Auto 51.9 % (45-73); Platelet Count 264 X10*3/uL (160-400); Red Blood Count 5.39 X10*6/uL (4.20-5.50); White Blood Count 10.5 X10*3/uL (4.8-10.8)
[2020-09-01 12:25] LABS: Prothrombin Time 12.3 SEC (10.8-13.0)
[2020-09-01 12:35] LABS: Lactic Acid 1.3 mmol/L (0.5-2.0)
[2020-09-01 12:40] LABS: Alanine Aminotransferase 10 U/L (0-31); Albumin Level 4.3 g/dL (3.5-5.0); Alkaline Phosphatase 61 U/L (39-117); Anion Gap 11 (12-20); Aspartate Amino Transferase 18 U/L (5-31); Bilirubin Direct 0.2 mg/dL (0.0-0.5); Bilirubin Total 0.3 mg/dL (0.0-1.0); Blood Urea Nitrogen 9 mg/dL (9-16); Carbon Dioxide 34 mmol/L (22-29); Chloride 99 mmol/L (96-108); Creatinine Clr Calc Pharmacy 94.4; Estimated Glomerular Filt Rate > 60; Glucose Random 109 mg/dL (60-115); Magnesium 2.2 mg/dL (1.6-2.6); Potassium 3.7 mmol/L (3.3-5.1); Sodium 140 mmol/L (135-145); Total Protein 7.3 g/dL (6.5-8.0)
[2020-09-01 13:06] LABS: COVID-19 Test Negative (Negative); IDNOW Serial# 9DD0AD1C
--- NOTE | 2020-09-01 13:33 | P.HPHOSP_ITS ---
History of Present Illness Date of Service: 09/01/20 Chief Complaint: SHORTNESS OF BREATH 20-year-old woman with a history of asthma presents with complaints of worsening shortness of breath over the last 2 weeks. She had been using her inhalers with no affect. She reported cough but no phlegm. No fever, chills, nausea, vomiting, diarrhea. She uses a bundle of heroin a day and uses on a regular basis. Apparently upon arrival to the ER she was noted to have an oxygen saturation in the 70s. She required multiple albuterol treatments, IV magnesium, azithromycin, ceftriaxone. She will be admitted for further management and treatment of acute asthma exacerbation. Review of Systems Review of Systems: Denies any recent fever chills or decrease in appetite respiratory See HPI cardiovascular is adjustment of any PND or edema gastrointestinal denies any dysphagia abdominal pain nausea vomiting or diarrh ea genitourinary denies any dysuria frequency or hematuria musculoskeletal denies any joint pain or swelling neuropsych denies any weakness or seizures all other systems reviewed are negative [facility], [facility] Medical History Asthma DVT (deep venous thrombosis) Social History Housing: Homeless Alcohol intake: never Smoking Status: Never smoker Cigarettes Per Day: 2 Use of substances other than those prescribed or required for medical reasons: Yes Substance Use Type: Heroin Advance Directives: No Advance Directives Information Provided: Yes service: No Meds Allergies Allergy/AdvReac Type Severity Reaction Status Date / Time methylprednisolone Allergy Severe Difficulty Verified 07/28/20 17:56 [From Solu-Medrol] Breathing Active Medications: Current Medications Generic Name Dose Route Start Last Admin Trade Name Freq PRN Reason Stop Dose Admin Magnesium Sulfate 2 gm in 50 mls @ 25 mls/hr 09/01/20 11:55 09/01/20 12:16 IV 09/01/20 13:54 25 mls/hr ONCE ONE Administration Ceftriaxone Sodium 1 gm/ 50 mls @ 100 mls/hr 09/01/20 13:11 Sodium Chloride IV 09/01/20 13:40 ONCE ONE Azithromycin 500 mg/ Sodium 250 mls @ 125 mls/hr 09/01/20 13:11 Chloride IV 09/01/20 15:10 ONCE ONE Pharmacy Consult 1 each 09/01/20 13:31 Consult Rx Perform Med Rec MISCELLANE ONCE PRN Consult order Home Medications Medication Instructions Recorded Confirmed Last Taken Type albuterol sulfate [ProAir HFA] 2 puff INHALATION Q4H PRN 07/13/20 09/01/20 09/01/20 History Physical Exam Vital Signs and Narrative: Vital Signs: Last Vital Signs Temp 97.8 F 09/01/20 11:55 Pulse 109 H 09/01/20 12:02 Resp 19 09/01/20 11:55 BP 118/85 09/01/20 11:55 Pulse Ox 99 09/01/20 11:55 Body Mass Index 18.8 Appearing in no acute distress head is normocephalic atraumatic eyes pupils are PERRLA sclera is anicteric mouth throat mucous membranes are intact and moist neck is supple no lymphadenopathy, no JVD noted lung sounds expiratory wheezes heart regular rate rhythm, clear S1, S2 positive bowel sounds, abdomen is soft, nontender neuro patient is alert x3, no focal deficits Results Labs CBC and Chem 7: 09/01/20 12:11 09/01/20 12:11 Labs: Laboratory Results - last 24 hr 09/01/20 09/01/20 09/01/20 12:11 12:11 12:11 MCV 91.5 MCH 29.1 MCHC 31.8 RDW 13.0 Plt Count 264 MPV 9.7 Immature Gran % (Auto) 0.1 Neut % (Auto) 51.9 Lymph % (Auto) 19.8 L [place] % (Auto) 8.7 Eos % (Auto) 19.0 H Baso % (Auto) 0.5 Lymph # (Auto) 2.1 [place] # (Auto) 0.9 Eos # (Auto) 2.0 H Baso # (Auto) 0.1 Abs Immat Gran (auto) 0.01 Absolute Neuts (auto) 5.5 Absolute Nucleated RBC 0.000 Nucleated RBC % (auto) 0.0 PT 12.3 INR 1.0 Anion Gap 11 L Estim Creat Clear Calc 94.4 Estimated GFR > 60 Random Glucose 109 Lactic Acid Calcium 9.0 Magnesium 2.2 Total Bilirubin 0.3 Direct Bilirubin 0.2 AST 18 ALT 10 Alkaline Phosphatase 61 Total Protein 7.3 Albumin 4.3 COVID-19 (GEM) COVID-19 Clin Com 09/01/20 09/01/20 12:11 12:40 MCV MCH MCHC RDW Plt Count MPV Immature Gran % (Auto) Neut % (Auto) Lymph % (Auto) [place] % (Auto) Eos % (Auto) Baso % (Auto) Lymph # (Auto) [place] # (Auto) Eos # (Auto) Baso # (Auto) Abs Immat Gran (auto) Absolute Neuts (auto) Absolute Nucleated RBC Nucleated RBC % (auto) PT INR Anion Gap Estim Creat Clear Calc Estimated GFR Random Glucose Lactic Acid 1.3 Calcium Magnesium Total Bilirubin Direct Bilirubin AST ALT Alkaline Phosphatase Total Protein Albumin COVID-19 (GEM) Negative COVID-19 Clin Com See Note Imaging Radiologist's Impressions: Impressions Chest X-Ray 09/01/20 11:55 IMPRESSION: Subtle hazy opacity in the right lower lobe, that may represent developing infiltrate. Mild hyperinflation of the lungs, which is nonspecific, but can be seen in setting of small airways disease. Assessment and Plan (1) Asthma exacerbation: Status: Acute 20-year-old woman with history of asthma presenting with acute asthma exacerbation. Asthma exacerbation. -scheduled DuoNebs -IV Solu-Medrol -continue supplemental oxygen Substance abuse. Requesting Suboxone - will treat with opioids for now to avoid withdrawal symptoms. - Care team consultation DVT prophylaxis with Lovenox Attending: Dr. Morales
[2020-09-01] MEDS: cefTRIAXone sodium 1 GM in 0.9 % Sodium Chloride 50 ML IV (13:45)
[2020-09-01] MEDS: 0.9 % Sodium Chloride 1,500 ML 999 ML IV (14:26)
[2020-09-01] MEDS: Azithromycin 500 MG in 0.9 % Sodium Chloride 250 ML 125 MG IV (14:26)
--- NOTE | 2020-09-01 15:01 | PM.EVENT ---
Event Note Date of Service: 09/01/20 Event Note: Patient seen and examined independently and was present during sanchez portion of E/M service. Agree with midlevel's history, physical, assessment, and plan 20F presented with sob acute hypoxic resp failure due to asthma steroids, nebs
[2020-09-01] MEDS: Enoxaparin Sodium 40 MG/0.4 ML SYRINGE SUBCUT (18:32)
--- NOTE | 2020-09-01 23:33 | PC.NURSE ---
PT AMBULATORY TO BATHROOM WITH STEADY GAIT. NOTICED EMPTY SPECIMEN CUP, PT AWARE BUT FORGOT TO GIVE SAMPLE.
[2020-09-02] VITALS (8 sets, daily range): BP systolic 95–141; BP diastolic 54–80; PULSE 75–115; RESP 16–20; TEMP 36.4–37.2; O2SAT 92–95
[2020-09-02] MEDS: 0.9 % Sodium Chloride Flush 3 ML SYRINGE IVFLUSH ×3 (02:06→16:11)
[2020-09-02] MEDS: Albuterol/Iprat 2.5/0.5MG 3 ML AMPUL.NEB INHALE ×3 (02:10→11:27)
--- NOTE | 2020-09-02 06:40 | PC.NURSE ---
THIS RN ROBIN WAS WALKING BY THE PT ROOM AND FOUND HER WITH AUDITABLE WHEEZING, TRIPOD POSITION. SAT 87% ON 2L INCREASED TO 3L. RESP CALLED. PT TIGHT WHEEZING AND NONPROD COUGH. SKIN WAXY. HR NOW 95 WITH SAT 93%.
[2020-09-02] MEDS: predniSONE 20 MG TABLET 60 MG PO (06:59)
[2020-09-02 07:09] LABS: MANUAL DIFF FLAG NO
[2020-09-02 07:17] LABS: Basophils Percent Auto 0.3 % (0-2); Eosinophils Absolute Auto 0.6 X10*3/uL (0.0-0.4); Eosinophils Percent Auto 4.9 % (0-4); Hematocrit 41.4 % (37-47); Hemoglobin 13.4 g/dl (12.0-16.0); Imm Gran Abs Auto 0.03 X10*3/uL (0.00-0.03); Imm Gran Pct Auto 0.3 % (0.0-0.4); Lymphocytes Absolute Auto 2.8 X10*3/uL (1.2-4.9); Lymphocytes Percent Auto 24.4 % (20-40); Mean Corpuscular HGB Conc 32.4 g/dl (31.0-35.0); Mean Corpuscular Hemoglobin 29.2 pg (27.0-33.0); Mean Corpuscular Volume 90.2 fL (80-98); Mean Platelet Volume 10.4 fL (9.4-12.3); Monocytes Absolute Auto 1.5 X10*3/uL (0.1-1.2); Neutrophils Absolute Auto 6.6 X10*3/uL (2.0-8.3); Neutrophils Percent Auto 57.1 % (45-73); Platelet Count 249 X10*3/uL (160-400); Red Blood Count 4.59 X10*6/uL (4.20-5.50); Red Cell Distribution Width 12.9 % (11.0-16.0); White Blood Count 11.5 X10*3/uL (4.8-10.8)
--- NOTE | 2020-09-02 07:22 | PC.NURSE ---
pt fumbling under blankets, trying to hide items when this rn walking into room. security to bedside to search belongings. reports only old baggies of heroin found. pt aware of plan of care and denied having any questions.
[2020-09-02 07:44] LABS: Anion Gap 10 (12-20); Blood Urea Nitrogen 5 mg/dL (9-16); Calcium 8.2 mg/dL (8.4-10.2); Carbon Dioxide 30 mmol/L (22-29); Chloride 103 mmol/L (96-108); Creatinine Clr Calc Pharmacy 116.5; Estimated Glomerular Filt Rate > 60; Glucose Random 84 mg/dL (60-115); Potassium 3.9 mmol/L (3.3-5.1); Sodium 139 mmol/L (135-145)
--- NOTE | 2020-09-02 10:54 | PC.NURSE ---
pt sleeping, o2 sat 88% on room air pt not tolerating keeping on o2. placed on 3l nc at 95% lunch ordered and pt aware of plan of care denied having any questions
--- NOTE | 2020-09-02 12:18 | MHC.CM.PN ---
Attempted to meet with patient in regards to discharge planning. Patient is currently sleeping. Patient has been a frequent patient at [facility]. Case management assessment completed using medical record. Patient is listed as being homeless. However she will stay with friends when she can. Empty heroin bags have been found with patient on this admission and previous admissions. Belongings have been searched by security at this time. HCP is on file. Patient does not have a PCP. Continue to monitor for d/c needs.
--- NOTE | 2020-09-02 15:14 | PC.NURSE ---
call for report, awaiting answer
--- NOTE | 2020-09-02 15:18 | PC.NURSE ---
report given to mundo on s3
[2020-09-02] MEDS: Enoxaparin Sodium 40 MG/0.4 ML SYRINGE SUBCUT (17:30)
--- NOTE | 2020-09-02 18:28 | HO.PM.IMPN ---
Subjective Subjective Date of Service: 09/02/20 Interval History: asthma exceerbation Review of Systems Patient still feels short of breath, so feels weak, She says the shortness of breath seems slowly improving since yesterday but still significant short of breath and her require oxygen. Denies any chest pain or abdominal pain palpitation or cough or phlegm. Denies any fever or chills Physical Exam Vital Signs: Vital Signs: Last Vital Signs Temp 99 F 09/02/20 15:51 Pulse 115 H 09/02/20 15:51 Resp 18 09/02/20 15:51 BP 141/80 H 09/02/20 15:51 Pulse Ox 93 09/02/20 15:51 Body Mass Index 18.8 Physical exam Constitutional: Somewhat short of but could able speak. Cvs: rrr, [id number] , no murmur res: grossly fair air entry, diminshed at bases and has wheezin abd: no rebound or guarding ,nt, bs present. ext pulses present , no cyanosis neuro: axo3 , nonfocal. Objective Data Current Medications Generic Name Dose Route Start Last Admin Trade Name Freq PRN Reason Stop Dose Admin Acetaminophen 650 mg 09/01/20 16:06 Acetaminophen 325 Mg Tablet PO Q6H PRN Pain, Mild (Pain Scale 1-3) Albuterol/Ipratropium 3 ml 09/01/20 20:00 09/02/20 15:22 Albuterol/Iprat 2.5/0.5mg 3 Ml Ampul.Neb INHALE Not Given RQ4H WHILE AWAKE JARRETT Enoxaparin Sodium 40 mg 09/01/20 18:00 09/02/20 17:30 Enoxaparin Sodium 40 Mg/0.4 Ml Syringe SUBCUT 40 mg Q24H JARRETT Administration Ondansetron HCl 4 mg 09/01/20 16:06 Ondansetron Hcl 4 Mg/2 Ml Vial IVPUSH Q8H PRN Nausea and Vomiting Pharmacy Consult 1 each 09/01/20 13:31 Consult Rx Perform Med Rec MISCELLANE ONCE PRN Consult order Prednisone 60 mg 09/02/20 09:00 09/02/20 06:59 Prednisone 20 Mg Tablet PO 60 mg DAILY JARRETT Administration Sodium Chloride 3 ml 09/02/20 00:00 09/02/20 16:11 0.9 % Sodium Chloride Flush 3 Ml Syringe IVFLUSH 3 ml QSHIFT JARRETT Administration Labs CBC & Chem 7: 09/02/20 06:36 09/02/20 06:36 Microbiology Microbiology Results: Microbiology 09/01/20 13:14 Blood - Venous Blood Culture - Preliminary No growth after 24 hours. 09/01/20 12:11 Blood - Venous Blood Culture - Preliminary No growth after 24 hours. Assessment and Plan (1) Hypoxia: Status: Acute Assessment and Plan: 20-year-old woman with history of asthma presenting with acute asthma exacerbation. 1.Asthma exacerbation. Shortness of breath seems improving -continue scheduled DuoNebs,IV [id number] need to switch to po prednisone , supplemental oxygen 2.Substance abuse. on opioids ?to avoid withdrawal symptoms. Requesting Suboxone,Care team consultation DVT prophylaxis with Lovenox
[2020-09-03] MEDS: 0.9 % Sodium Chloride Flush 3 ML SYRINGE IVFLUSH ×3 (00:26→15:46)
[2020-09-03 03:41] VITALS: BP 110/55; PULSE 84; RESP 16; TEMP 37.2; O2SAT 95
[2020-09-03 07:08] VITALS: BP 95/52; PULSE 76; RESP 18; TEMP 36.3; O2SAT 93
[2020-09-03] MEDS: predniSONE 20 MG TABLET 60 MG PO (08:40)
--- NOTE | 2020-09-03 10:09 | P.PNIM_ITS ---
Subjective Subjective Date of Service: 09/03/20 Interval History: sob Cardiovascular Cardiovascular: Reports no additional cardiovascular complaints Gastrointestinal Gastrointestinal: Reports no additional gastrointestinal complaints Physical Exam Vital Signs: Vital Signs: Last Vital Signs Temp 97.3 F 09/03/20 07:08 Pulse 76 09/03/20 07:08 Resp 18 09/03/20 07:08 BP 95/52 L 09/03/20 07:08 Pulse Ox 93 09/03/20 07:08 Body Mass Index 18.8 General: AO X 3, short of breath Resp: wheezes CVS: S1,S2,RRR GI: soft, non tender, non distended Neuro: motor grossly intact Psych: appropriate affect Objective Data Current Medications Generic Name Dose Route Start Last Admin Trade Name Freq PRN Reason Stop Dose Admin Acetaminophen 650 mg 09/01/20 16:06 Acetaminophen 325 Mg Tablet PO Q6H PRN Pain, Mild (Pain Scale 1-3) Albuterol/Ipratropium 3 ml 09/01/20 20:00 09/03/20 07:38 Albuterol/Iprat 2.5/0.5mg 3 Ml Ampul.Neb INHALE Not Given RQ4H WHILE AWAKE [facility] Enoxaparin Sodium 40 mg 09/01/20 18:00 09/02/20 17:30 Enoxaparin Sodium 40 Mg/0.4 Ml Syringe SUBCUT 40 mg Q24H JARRETT Administration Ondansetron HCl 4 mg 09/01/20 16:06 Ondansetron Hcl 4 Mg/2 Ml Vial IVPUSH Q8H PRN Nausea and Vomiting Pharmacy Consult 1 each 09/01/20 13:31 Consult Rx Perform Med Rec MISCELLANE ONCE PRN Consult order Prednisone 60 mg 09/02/20 09:00 09/03/20 08:40 Prednisone 20 Mg Tablet PO 60 mg DAILY JARRETT Administration Sodium Chloride 3 ml 09/02/20 00:00 09/03/20 08:40 0.9 % Sodium Chloride Flush 3 Ml Syringe IVFLUSH 3 ml QSHIFT JARRETT Administration Labs CBC & Chem 7: 09/02/20 06:36 09/02/20 06:36 Microbiology Microbiology Results: Microbiology 09/01/20 13:14 Blood - Venous Blood Culture - Preliminary No growth after 24 hours. 09/01/20 12:11 Blood - Venous Blood Culture - Preliminary No growth after 24 hours. Assessment and Plan (1) Hypoxia: Status: Acute Assessment and Plan: 20-year-old woman with history of asthma presenting with acute asthma exacerbation. acute hypoxic respiratory failure due to asthma exacerbation in setting of polysubstance abuse continue to wean o2 as tolerated steroids, nebs polysubstance abuse care team consult
--- NOTE | 2020-09-03 10:37 | MHC.RECOVRN ---
20 year old female presented to [facility] as a walk in on 09/01/20 for asthma exacerbation. Pt was subsequently admitted due to acute hypoxic respiratory failure due to asthma exacerbation in setting of substance use. T/w met with pt in 351 to discuss substance use. Pt reports heroin use, smoking and IV, last use prior to admission on Thursday. Pt reports using 1 bundle daily and attempting to decrease amount used. Pt reports occasional cocaine use. Pt is interested in treatment, specifically CSS level of care. Pt has had 1 month in recovery after completing ATS and CSS at [facility] in Mar 2020. Pt would like referral and return to [facility] if possible. Pt is interested in receiving methadone while inpatient for withdrawal symptoms if necessary. Case was discussed with CM and referral will be placed to [facility]. Will continue to follow.
[2020-09-03 11:42] VITALS: BP 96/60; PULSE 86; RESP 20; TEMP 36.4; O2SAT 94
--- NOTE | 2020-09-03 12:07 | MHC.RECOVRN ---
Pt and CM made aware that [facility] and [place] are not accepting patients at this time. Pt states I'll go anywhere. Referrals will continue to be placed. Will continue to follow.
--- NOTE | 2020-09-03 14:21 | MHC.RECOVSUP ---
Recovery Support note: This signwriter met with patient to complete referral packet for [facility]. Information has been faxed and this signwriter awaits a follow up call. Patient information has also been faxed to [facility]. Patient reports she has no where to go and is willing to go anywhere for treatment.
[2020-09-03 16:00] VITALS: BP 108/58; PULSE 78; RESP 14; TEMP 35.6; O2SAT 96
--- NOTE | 2020-09-03 16:19 | HO.ADDICTCON ---
History of Present Illness Date of Service: 09/03/2020 Chief Complaint: Asthma exacerbation Reason for Consult: opioid use disorder Requesting physician: Gideon Guardado Discussed with referring provider: Yes Sources of Information: patient interviewed and chart reviewed Additional Sources of Information: Recovery support team HPI Narrative: patient is a 20 year old female with history of OUD currently medically admitted with asthma exacerbation. Consult requested as patient is reporting withdrawal sx, and seeking MAT. Patient seen by Recovery support team who is working on getting patient admission to [facility]. Patient seen in room 351. Awake, alert, laying in hospital bed watching videos on her phone. Patient somewhat guarded during interview, providing brief answers. Reports last use was prior to admission. She states she is currently experiencing anxiety, restlessness, mild body aches and is diaphoretic. Denies nausea, loose stools, vomiting, no tremor, yawning or rhinorhea noted during interview. Patient reports she has been using heroin for 2 years (since she was 18). Previously on methadone during ATS admission only. Longest period in recovery has been one month and wsas this past April, patient reports she has no supports---has no family, raised in foster care and currently has no home. Medical Evaluation Reviewed: Yes Personal & Social History: as per HPI Review of Systems Review of Systems per HPI Diagnostics Vital Signs (24Hr): Vital Signs - 24 hr 09/02/20 19:28 09/02/20 23:29 09/03/20 03:41 Temperature 97.6 F 98.7 F 99 F Pulse Rate 85 75 84 Respiratory Rate 18 16 16 Blood Pressure 97/55 L 95/54 L 110/55 L Pulse Oximetry 93 94 95 09/03/20 07:08 09/03/20 11:42 09/03/20 16:00 Temperature 97.3 F 97.6 F 96.0 F L Pulse Rate 76 86 78 Respiratory Rate 18 20 14 Blood Pressure 95/52 L 96/60 108/58 L Pulse Oximetry 93 94 96 Body Mass Index 18.8 Labs Results: 09/02/20 06:36 09/02/20 06:36 Labs: Laboratory Results - last 48 hr 09/02/20 09/02/20 06:36 06:36 WBC 11.5 H RBC 4.59 Hgb 13.4 Hct 41.4 MCV 90.2 MCH 29.2 MCHC 32.4 RDW 12.9 Plt Count 249 MPV 10.4 Immature Gran % (Auto) 0.3 Neut % (Auto) 57.1 Lymph % (Auto) 24.4 [place] % (Auto) 13.0 H Eos % (Auto) 4.9 H Baso % (Auto) 0.3 Lymph # (Auto) 2.8 [place] # (Auto) 1.5 H Eos # (Auto) 0.6 H Baso # (Auto) 0.0 Abs Immat Gran (auto) 0.03 Absolute Neuts (auto) 6.6 Absolute Nucleated RBC 0.000 Nucleated RBC % (auto) 0.0 Sodium 139 Potassium 3.9 Chloride 103 Carbon Dioxide 30 H Anion Gap 10 L BUN 5 L Creatinine 0.64 Estim Creat Clear Calc 116.5 Estimated GFR > 60 Random Glucose 84 Calcium 8.2 L D Imaging Radiology Impressions: ITS Impressions Chest X-Ray 09/01/20 11:55 IMPRESSION: Subtle hazy opacity in the right lower lobe, that may represent developing infiltrate. Mild hyperinflation of the lungs, which is nonspecific, but can be seen in setting of small airways disease. Mental Status Exam Mental Status Exam Patient Appearance: Appropriate Patient Orientation: Person, Place, Time and Situation Level of Consciousness: Awake, Appropriate and Alert Patient Behavior: Appropriate, Guarded and Passive Mood Description: Anxious and Apprehensive Affect Description: Anxious and Apprehensive Ability to Follow Directions: Excellent Speech Pattern: Clear and Soft-Spoken Hallucinations: None Thought Process: Intact Thought Content: positive for Intact Judgement: Fair Medications Medications Current Medications Generic Name Dose Route Start Last Admin Trade Name Freq PRN Reason Stop Dose Admin Acetaminophen 650 mg 09/01/20 16:06 Acetaminophen 325 Mg Tablet PO Q6H PRN Pain, Mild (Pain Scale 1-3) Albuterol/Ipratropium 3 ml 09/01/20 20:00 09/03/20 14:58 Albuterol/Iprat 2.5/0.5mg 3 Ml Ampul.Neb INHALE Not Given RQ4H WHILE AWAKE JARRETT Enoxaparin Sodium 40 mg 09/01/20 18:00 09/02/20 17:30 Enoxaparin Sodium 40 Mg/0.4 Ml Syringe SUBCUT 40 mg Q24H JARRETT Administration Methadone HCl 20 mg 09/03/20 16:15 Methadone Hcl 1 Mg/0.1 Ml Oral.Conc PO DAILY JARRETT Ondansetron HCl 4 mg 09/01/20 16:06 Ondansetron Hcl 4 Mg/2 Ml Vial IVPUSH Q8H PRN Nausea and Vomiting Pharmacy Consult 1 each 09/01/20 13:31 Consult Rx Perform Med Rec MISCELLANE ONCE PRN Consult order Prednisone 60 mg 09/02/20 09:00 09/03/20 08:40 Prednisone 20 Mg Tablet PO 60 mg DAILY JARRETT Administration Sodium Chloride 3 ml 09/02/20 00:00 09/03/20 15:46 0.9 % Sodium Chloride Flush 3 Ml Syringe IVFLUSH 3 ml QSHIFT JARRETT Administration Allergies Allergies Allergy/AdvReac Type Severity Reaction Status Date / Time methylprednisolone Allergy Severe Difficulty Verified 07/28/20 17:56 [From Solu-Medrol] Breathing Assessment & Plan Assessment & Plan (1) Opioid use disorder: Status: Acute Code(s): F11.99 - Opioid use, unspecified with unspecified opioid-induced disorder Recommendations: Methadone 20mg QD to start now Recovery support team facilitating discharge plan to [facility] as well as intake at [facility] take home narcan to be ordered at time of dicharge harm reduction discussion given risk factors HIV and hepatitis screenings with next lab draw Greater than 50% of the session was spent on counseling and/or coordination of care [facility] Past Medical History Medical History (Updated 09/03/20 @ 16:37 by Shirley Mishra CNP) Acute respiratory failure with hypoxia and hypercapnia Asthma DVT (deep venous thrombosis) Positive blood culture Social History Social History Household Members: None Housing: Homeless Do you presently have visiting nurse or other home services: No Alcohol intake: never Smoking Status: Former smoker Cigarettes Per Day: 1 Smoked in Last 30 Days: No Patient Interested in Nicotine Replacement: No Patient Given Instructions on How to Stop Smoking: No Second Hand Smoke Exposure: Yes Use of substances other than those prescribed or required for medical reasons: Yes Substance Use Type: Heroin Substance Use Frequency: Occasionally Last Used Substance: Days (ago) Currently Displaying Signs/Symptoms of Drug Intoxication Withdrawal: No Any prior treatment program specific to substance use: Yes Have you been hit, kicked, punched, or otherwise hurt by someone within the past year? If so, by whom?: No Do you feel safe in your current relationship?: Yes Is there a partner from a previous relationship who is making you feel unsafe now?: No Are you made to feel afraid or neglected: No Advance Directives: No Advance Directives Information Provided: Yes Do you have thoughts of harming others: None Do you have a plan to hurt others: No Plan Recently lost weight without trying: Yes service: No Current occupational status: employed
[2020-09-03 19:21] VITALS: BP 106/46; PULSE 77; RESP 15; TEMP 36; O2SAT 95
[2020-09-03 23:08] VITALS: BP 98/51; PULSE 73; RESP 18; TEMP 36.9; O2SAT 94
[2020-09-04 03:14] VITALS: PULSE 76; RESP 18; TEMP 36.2; O2SAT 95
[2020-09-04 04:07] VITALS: BP 101/52
[2020-09-04] MEDS: 0.9 % Sodium Chloride Flush 3 ML SYRINGE IVFLUSH ×2 (04:30→08:26)
[2020-09-04 05:52] VITALS: O2SAT 95
[2020-09-04 07:46] VITALS: BP 108/63; PULSE 69; RESP 16; TEMP 36.6; O2SAT 93
[2020-09-04] MEDS: predniSONE 20 MG TABLET 60 MG PO (08:26)
--- NOTE | 2020-09-04 08:27 | MHC.RECOVSUP ---
Addendum entered by Rony Chanel [facility] 09/04/20 11:14: Patient's intake at methadone clinic has been rescheduled for 915 on 09/06/20. [facility] aware. [facility] will pick patient up upon discharge. mobile home set up person time tentatively scheduled for 1330 on 09/05/20 at main entrance. This freelance copywriter will assist in facilitating this pickle water pump operator. Original Note: Recovery Support note: Patient has been accepted to [facility] for ongoing inpatient recovery support. Staff at the [facility] will be able to arrange transportation for patient once a discharge time is determined. Patient has been started on methadone to manage withdrawal symptoms. Patient has expressed interest in continuing to receive methadone after discharge. Patient has an appointment at [facility] in [place] at 845 on 09/05/20 to enroll in their methadone maintenance program.
--- NOTE | 2020-09-04 09:34 | MHC.RECOVRN ---
T/w met with pt to f/u after starting methadone on 09/03/20. Pt states It helped a little. Pt denies withdrawal symptoms at this time.
--- NOTE | 2020-09-04 09:38 | HO.PM.IMPN ---
Subjective Subjective Date of Service: 09/04/20 Interval History: noted improvement but still short of breath on exertion, with intermittent episodes of shortness of breath at rest Cardiovascular Cardiovascular: Reports no additional cardiovascular complaints Gastrointestinal Gastrointestinal: Reports no additional gastrointestinal complaints Physical Exam Vital Signs: Vital Signs: Last Vital Signs Temp 97.8 F 09/04/20 07:46 Pulse 69 09/04/20 07:46 Resp 16 09/04/20 07:46 BP 108/63 09/04/20 07:46 Pulse Ox 93 09/04/20 07:46 Body Mass Index 18.8 General: AO X 3, short of breath (less than yesterday) Resp: wheezes CVS: S1,S2,RRR GI: soft, non tender, non distended Neuro: motor grossly intact Psych: appropriate affect Objective Data Current Medications Generic Name Dose Route Start Last Admin Trade Name Freq PRN Reason Stop Dose Admin Acetaminophen 650 mg 09/01/20 16:06 Acetaminophen 325 Mg Tablet PO Q6H PRN Pain, Mild (Pain Scale 1-3) Albuterol/Ipratropium 3 ml 09/01/20 20:00 09/04/20 08:16 Albuterol/Iprat 2.5/0.5mg 3 Ml Ampul.Neb INHALE Not Given RQ4H WHILE AWAKE [facility] Enoxaparin Sodium 40 mg 09/01/20 18:00 09/03/20 17:11 Enoxaparin Sodium 40 Mg/0.4 Ml Syringe SUBCUT Not Given Q24H JARRETT Methadone HCl 20 mg 09/03/20 16:15 09/04/20 08:26 Methadone Hcl 1 Mg/0.1 Ml Oral.Conc PO 20 mg DAILY JARRETT Administration Ondansetron HCl 4 mg 09/01/20 16:06 Ondansetron Hcl 4 Mg/2 Ml Vial IVPUSH Q8H PRN Nausea and Vomiting Pharmacy Consult 1 each 09/01/20 13:31 Consult Rx Perform Med Rec MISCELLANE ONCE PRN Consult order Prednisone 60 mg 09/02/20 09:00 09/04/20 08:26 Prednisone 20 Mg Tablet PO 60 mg DAILY JARRETT Administration Sodium Chloride 3 ml 09/02/20 00:00 09/04/20 08:26 0.9 % Sodium Chloride Flush 3 Ml Syringe IVFLUSH 3 ml QSHIFT JARRETT Administration Labs CBC & Chem 7: 09/02/20 06:36 09/02/20 06:36 Microbiology Microbiology Results: Microbiology 09/01/20 13:14 Blood - Venous Blood Culture - Preliminary No growth after 48 hours. 09/01/20 12:11 Blood - Venous Blood Culture - Preliminary No growth after 48 hours. Assessment and Plan (1) Hypoxia: Status: Deleted Assessment and Plan: 20-year-old woman with history of asthma presenting with acute asthma exacerbation. acute hypoxic respiratory failure due to asthma exacerbation in setting of polysubstance abuse just weaned off o2 this AM still wheezy, but improved continue steroids, nebs monitor today and if continues to improve, likely dc tomorrow polysubstance abuse Methadone 20mg QD to start now Recovery support team facilitating discharge plan to [facility] as well as intake at [facility] h[facility] and hep b and c screen to be drawn with AM labs
--- NOTE | 2020-09-04 12:54 | P.DS_ITS ---
DS: Providers Provider Date of Service: 09/04/20 Date of admission: 09/01/20 16:06 Primary care physician: Unknown Physician Consults: 09/03/20 09:54 Consult to Care Team Routine Comment: Reason for consultation: drug dependence DS: Diagnosis Discharge Diagnosis (1) Hypoxia: Status: Deleted (2) Asthma exacerbation: Status: Acute (3) Acute respiratory failure with hypoxia: Status: Acute (4) Opioid use disorder: Status: Acute (5) Substance abuse or dependence: Status: Acute DS: Medications Discharge Medications Home Medications: Home Medications Medication Instructions Recorded Confirmed albuterol sulfate [ProAir HFA] 2 puff INHALATION Q4H PRN 07/13/20 09/01/20 Previous Rx's Medication Instructions Recorded prednisone 40 mg PO DAILY #10 tab 09/04/20 DS: Summary Hospital Course Hospital Course: Patient was admitted for acute hypoxic respiratory failure secondary to asthma exacerbation in the setting of polysubstance abuse with withdrawal. Patient was treated with steroids and bronchodilators. Symptoms improved and patient was able to be weaned off oxygen. She was also seen by security delivery specialist and started on methadone. She was set up to go to detox. However, patient has since declined this option. She is now feeling much better will be discharged home. She will be sent with 5 more days of p.o. prednisone. She was instructed to follow up with her primary care physician and to avoid drug use. Time Spent with Patient Time attestation: Total time spent providing and/or coordinating discharge services: Discharge coordination time: Greater than 30 minutes Physical Exam Vital Signs: Vital Signs: Last Vital Signs Temp 97.8 F 09/04/20 07:46 Pulse 69 09/04/20 07:46 Resp 16 09/04/20 07:46 BP 108/63 09/04/20 07:46 Pulse Ox 93 09/04/20 07:46 Body Mass Index 18.8 General: AO X 3, no acute distress, walking [place] with no signs of sob Resp: exp wheeze CVS: S1,S2,RRR GI: soft, non tender, non distended Neuro: motor grossly intact Psych: appropriate affect DS: Data Data Completed and Pending Labs on day of discharge: Preliminary micro results at discharge 09/01/20 13:14 Blood Culture - Preliminary Blood - Venous No growth after 48 hours. 09/01/20 12:11 Blood Culture - Preliminary Blood - Venous No growth after 48 hours. Discharge Plan Discharge Patient Disposition: Home, Self-Care Referrals: Physician,Unknown [Primary Care Provider] - Discharge Medications: New prednisone 20 mg Tablet 40 mg PO DAILY Qty: 10 RF: 0 Continued albuterol sulfate [ProAir HFA] 90 mcg/actuation Hfa Aerosol Inhaler 2 puff INHALATION Q4H PRN (Reason: Shortness Of Breath) RF: 0 Discharge Orders: Discharge Order (Routine); Ordered 09/04/20 Ordered By: Gideon Guardado Activity on Discharge: As tolerated Stand Alone Forms: Patient Portal Discharge page Care Plan Goals: avoid hopsitalization Health Concerns: polysubstance abuse, asthma Plan of Treatment: avoid drug use, steroids
== END 2020-09-04 13:03 | disposition home or self-care (01) | DRG 141 ==
LOC: HO.ED 13:15 → HO.EDOVER 16:12 → HO.S3 09-02 15:12
PROVIDERS: Nurse Practitioner Acute Care; Nurse Practitioner Family; Admitting Provider Internal Medicine; Emergency Provider Emergency Medicine; Visit Provider Internal Medicine
DX: J45.901 Unspecified asthma with (acute) exacerbation (principal); J96.01 Acute respiratory failure with hypoxia; F11.23 Opioid dependence with withdrawal; Z20.822 Contact with and (suspected) exposure to COVID-19; Z86.718 Personal history of other venous thrombosis and embolism; Z79.01 Long term (current) use of anticoagulants; Z79.899 Other long term (current) drug therapy
CPT/HCPCS: 36415; 71045; 80048; 80076; 83605; 83735; 85025; 85610; 87040; 87635; 93005; 94640; 94644; 96365; 96366; 96368; 99285; J0456; J0696; J1650; J3475